=== PATIENT | male | born 1930 | race Caucasian/White ===

== ENCOUNTER 2016-11-10 09:21 | Emergency (ER) | payer MEDICARE ==
[2016-11-10 09:41] VITALS: PULSE 100
--- NOTE | 2016-11-10 10:24 | ED ---
Male Urogenital HPI - General Chief complaint: Urogenital Stated complaint: Poss.uti Time Seen by Provider: 11/10/16 09:46 Source: patient, RN notes reviewed Mode of arrival: wheelchair Limitations: no limitations - History of Present Illness Initial comments: 78-year-old male presents emergency Department chief complaint of dysuria unable to urinate. Patient states he feels he needs to urinate. Patient has had multiple problems with his prostate in the past. Patient has fever, chills. Patient states has not urinates morning though he feels that he has to. Patient does see urologist and takes BPH meds. - Related Data Home Medications Medication Instructions Recorded Confirmed Levothyroxine Sodium [Synthroid] 125 mcg PO DAILY 08/01/14 11/10/16 Montelukast [Singulair] 10 mg PO DAILY 08/01/14 11/10/16 Aspirin EC [Ecotrin Low Dose] 81 mg PO DAILY 11/10/16 11/10/16 Atorvastatin Calcium [Lipitor] 20 mg PO DAILY 11/10/16 11/10/16 Doxazosin [Cardura] 4 mg PO DAILY 11/10/16 11/10/16 Glucosamine Sulfate 500 mg PO DAILY 11/10/16 11/10/16 Isosorbide Mononitrate ER [Imdur] 60 mg PO BID 11/10/16 11/10/16 Metoprolol Tartrate [Lopressor] 25 mg PO BID 11/10/16 11/10/16 Multivitamin [Men's Multi-Vitamin] 1 tab PO DAILY 11/10/16 11/10/16 Nitroglycerin Sl Tabs [Nitrostat] 0.4 mg SUBLINGUAL Q5M PRN 11/10/16 11/10/16 Omeprazole [PriLOSEC] 20 mg PO AC-BRKFST 11/10/16 11/10/16 Previous Rx's Medication Instructions Recorded Ciprofloxacin HCl [Cipro] 500 mg PO Q12HR #20 tablet 11/10/16 Allergies Allergy/AdvReac Type Severity Reaction Status Date / Time No Known Allergies Allergy Verified 11/10/16 10:00 Review of Systems ROS Statement: Those systems with pertinent positive or pertinent negative responses have been documented in the HPI. ROS Other: All systems not noted in ROS Statement are negative. Past Medical History Past Medical History: Asthma, Hyperlipidemia, Hypertension, Prostate Disorder, Thyroid Disorder History of Any Multi-Drug Resistant Organisms: None Reported Past Surgical History: Adenoidectomy, Back Surgery, Hernia Repair, Tonsillectomy Additional Past Surgical History / Comment(s): left kidney removal, thyroid, cataracts Past Psychological History: Depression Smoking Status: Former smoker Past Alcohol Use History: Occasional Past Drug Use History: None Reported General Exam Limitations: no limitations General appearance: alert, in no apparent distress Head exam: Present: atraumatic, normocephalic, normal inspection Respiratory exam: Present: normal lung sounds bilaterally. Absent: respiratory distress, wheezes, rales, rhonchi, stridor Cardiovascular Exam: Present: regular rate, normal rhythm, normal heart sounds. Absent: systolic murmur, diastolic murmur, rubs, gallop, clicks GI/Abdominal exam: Present: soft, distended (Distention noted of the bladder, palpable), tenderness (Moderate suprapubic tenderness), normal bowel sounds. Absent: guarding, rebound, rigid Back exam: Absent: CVA tenderness (R), CVA tenderness (L) Course Vital Signs 11/10/16 09:39 Temperature 97.3 F L Pulse Rate 100 Respiratory 20 Rate Blood Pressure 123/70 O2 Sat by Pulse 96 Oximetry Medical Decision Making - Medical Decision Making 78-year-old male presented emergency department for possible UTI. Patient urinary retention. Frances was placed. Patient states he completed relief of symptoms. Patient does have urinary tract infection we started on Cipro Floxin. Patient will follow-up with urologist. Return parameters were discussed. - Lab Data Lab Results 11/10/16 Range/Units 10:30 Urine Color Yellow Urine Appearance Cloudy (Clear) Urine pH 6.0 (5.0-8.0) Ur Specific [place] 1.012 (1.001-1.035) Urine Protein Trace H (Negative) Urine Glucose (UA) Negative (Negative) Urine Ketones Negative (Negative) Urine Blood Moderate H (Negative) Urine Nitrate Positive (Negative) Urine Bilirubin Negative (Negative) Urine Urobilinogen <2.0 (<2.0) mg/dL Ur Leukocyte Esterase Large H (Negative) Urine RBC 175 H (0-5) /hpf Urine WBC >182 H (0-5) /hpf Disposition Clinical Impression: UTI (urinary tract infection), Urinary retention Disposition: HOME SELF-CARE Condition: Stable Instructions: Urinary Tract Infection in Men (ED) Additional Instructions: Please return to the Emergency Department if symptoms worsen or any other concerns. Prescriptions: Ciprofloxacin HCl [Cipro] 500 mg PO Q12HR #20 tablet Time of Disposition: 10:53
[2016-11-10 10:49] LABS: Appearance,Urine Cloudy (Clear); Bilirubin,Urine Negative (Negative); Glucose,Urine (UA) Negative (Negative); Ketones,Urine Negative (Negative); Leukocyte Esterase,Urine Large (Negative); Nitrite,Urine Positive (Negative); Particle Count 84954; Protein,Urine Trace (Negative); RBC,Urine 175 /hpf (0-5); Specific Gravity,Urine 1.012 (1.001-1.035); UA Billing (MACRO vs. MICRO) MICRO; Urobilinogen,Urine <2.0 mg/dL (<2.0); WBC,Urine >182 /hpf (0-5)
[2016-11-10 11:49] VITALS: BP 119/75; RESP 16; TEMP 97.8
== END 2016-11-10 11:46 | disposition home or self-care (01) ==
LOC: EC 09:21
DX: N39.0 Urinary tract infection, site not specified (principal); N40.1 Benign prostatic hyperplasia with lower urinary tract symptoms; R33.8 Other retention of urine; I10 Essential (primary) hypertension; J45.909 Unspecified asthma, uncomplicated; E78.5 Hyperlipidemia, unspecified; E07.9 Disorder of thyroid, unspecified; Z79.82 Long term (current) use of aspirin; Z79.899 Other long term (current) drug therapy; Z87.891 Personal history of nicotine dependence
CPT/HCPCS: 51702; 51798; 81001; 87077; 87086; 87186; 99283

== ENCOUNTER → 2017-02-24 | Outpatient (CLI) | payer MEDICARE ==
--- NOTE | 2017-02-24 15:24 | US ---
EXAMINATION TYPE: US venous doppler duplex LE DATE OF EXAM: 02/24/2017 3:08 PM COMPARISON: NONE CLINICAL HISTORY: R60.0 Localized edema. Bilateral leg swelling x 3 weeks SIDE PERFORMED: Bilateral TECHNIQUE: The lower extremity deep venous system is examined utilizing real time linear array sonog mauro with graded compression, doppler sonography and color-flow sonography. VESSELS IMAGED: External Iliac Vein (EIV) Common Femoral Vein Deep Femoral Vein Greater Saphenous Vein * Femoral Vein Popliteal Vein Small Saphenous Vein * Proximal Calf Veins (* superficial vessels) Right Leg: Appears negative for DVT Left Leg: Appears negative for DVT Grayscale, color doppler, spectral doppler imaging performed of the deep veins of the lower extremiti es. There is normal flow, compressibility, vascular waveforms bilaterally. IMPRESSION: No ultrasound evidence for acute DVT in either lower extremity.
[2017-02-24 16:02] LABS: Anisocytosis Slight; Basophils % (A) 1 %; CH 22.8; CHCM 29.8; Eosinophils # (A) 0.2 k/uL (0-0.7); Eosinophils % (A) 5 %; HCT 29.8 % (39.0-53.0); Hypochromasia Marked; Luc # (Auto) 0.21; Luc % (Auto) 4; Lymphocytes # (A) 0.8 k/uL (1.0-4.8); Lymphocytes % (A) 16 %; MCH 23.2 pg (25.0-35.0); MCHC 30.2 g/dL (31.0-37.0); Mean Platelet Volume 6.6; Microcytosis Slight; Monocytes # (A) 0.3 k/uL (0-1.0); Monocytes % (A) 7 %; Neutrophils # (A) 3.4 k/uL (1.3-7.7); Neutrophils % (A) 68 %; RBC 3.87 m/uL (4.30-5.90); RDW 16.4 % (11.5-15.5); WBC 4.9 k/uL (3.8-10.6); WBC (Perox) 5.31
[2017-02-24 16:06] LABS: Appearance,Urine Clear (Clear); Bilirubin,Urine Negative (Negative); Glucose,Urine (UA) Negative (Negative); Ketones,Urine Negative (Negative); Leukocyte Esterase,Urine Negative (Negative); Nitrite,Urine Negative (Negative); PH, Urine 5.5 (5.0-8.0); Protein,Urine Negative (Negative); Specific Gravity,Urine 1.016 (1.001-1.035); UA Billing (MACRO vs. MICRO) CHEM
[2017-02-24 16:11] LABS: ALT 27 U/L (21-72); AST 26 U/L (17-59); Alkaline Phosphatase 53 U/L (38-126); Anion Gap 9 mmol/L; Blood Urea Nitrogen 17 mg/dL (9-20); Calcium 8.9 mg/dL (8.4-10.2); Carbon Dioxide 24 mmol/L (22-30); Chloride 108 mmol/L (98-107); Glucose 89 mg/dL (74-99); Non-African American GFR(MDRD) >60 (>60 ml/min/1.73 sqM); Potassium 4.2 mmol/L (3.5-5.1); Sodium 141 mmol/L (137-145); Total Bilirubin 0.7 mg/dL (0.2-1.3); Total Protein 6.5 g/dL (6.3-8.2)
== END | disposition home or self-care (01) ==
LOC: RADUSWWP 14:44
PROVIDERS: ATTEND Internal Medicine
DX: R60.0 Localized edema (principal); R10.13 Epigastric pain; R10.32 Left lower quadrant pain; R31.9 Hematuria, unspecified
CPT/HCPCS: 36415; 80053; 81003; 83690; 85025; 93970

== ENCOUNTER 2017-11-22 10:15 | Inpatient (IN) | payer MEDICARE ==
[2017-11-22] MEDS ORDERED: SODIUM CHLORIDE 0.9% 1,000 ML IV STA (10:46)
[2017-11-22] MEDS ORDERED: SODIUM CHLORIDE 0.9% 500 ML IV STA (10:46)
[2017-11-22] MEDS ORDERED: METOCLOPRAMIDE 5 MG/ML 2 ML VIAL IVP STA (10:46)
[2017-11-22] MEDS ORDERED: FAMOTIDINE 20 MG/2 ML VIAL IV STA (10:47)
--- NOTE | 2017-11-22 10:50 | ED ---
General Adult HPI - General Chief complaint: Nausea/Vomiting/Diarrhea Stated complaint: weakness, nausea, vomiting Time Seen by Provider: 11/22/17 10:35 Source: patient, family, RN notes reviewed Mode of arrival: wheelchair Limitations: no limitations - History of Present Illness Initial comments: Patient is a pleasant 87-year-old male presenting to the emergency department with nausea and vomiting. Onset was after eating yesterday. Patient had epigastric discomfort followed by several episodes of emesis. Nausea is mild at this time. Patient has no abdominal discomfort since the first episode of emesis. Patient has had similar symptoms approximately 3 or 4 times over the past couple of weeks. No constipation or diarrhea. No fevers. No chest pain. Patient felt first time he had eaten bad food. - Related Data Home Medications Medication Instructions Recorded Confirmed Levothyroxine Sodium [Synthroid] 125 mcg PO DAILY 08/01/14 11/22/17 Montelukast [Singulair] 10 mg PO DAILY 08/01/14 11/22/17 Aspirin EC [Ecotrin Low Dose] 81 mg PO DAILY 11/10/16 11/22/17 Atorvastatin Calcium [Lipitor] 20 mg PO DAILY 11/10/16 11/22/17 Doxazosin [Cardura] 4 mg PO DAILY 11/10/16 11/22/17 Glucosamine Sulfate 500 mg PO DAILY 11/10/16 11/22/17 Isosorbide Mononitrate ER [Imdur] 60 mg PO DAILY 11/10/16 11/22/17 Nitroglycerin Sl Tabs [Nitrostat] 0.4 mg SUBLINGUAL Q5M PRN 11/10/16 11/22/17 Omeprazole [PriLOSEC] 20 mg PO AC-BRKFST 11/10/16 11/22/17 Chondroitin Sulfate 150 mg PO DAILY 11/22/17 11/22/17 Ferrous Sulfate [Feosol] 325 mg PO TID 11/22/17 11/22/17 Finasteride [Proscar] 5 mg PO DAILY 11/22/17 11/22/17 Metoprolol Succinate [Toprol XL] 25 mg PO DAILY 11/22/17 11/22/17 Ranitidine HCl 150 mg PO HS 11/22/17 11/22/17 Allergies Allergy/AdvReac Type Severity Reaction Status Date / Time No Known Allergies Allergy Verified 11/22/17 11:01 Review of Systems ROS Statement: Those systems with pertinent positive or pertinent negative responses have been documented in the HPI. ROS Other: All systems not noted in ROS Statement are negative. Constitutional: Denies: fever Eyes: Denies: eye pain ENT: Denies: ear pain Respiratory: Denies: cough Cardiovascular: Denies: chest pain Endocrine: Reports: fatigue Gastrointestinal: Reports: nausea, vomiting. Denies: diarrhea Genitourinary: Denies: dysuria Musculoskeletal: Denies: back pain Skin: Denies: rash Neurological: Denies: weakness Past Medical History Past Medical History: Asthma, Hyperlipidemia, Hypertension, Prostate Disorder, Thyroid Disorder History of Any Multi-Drug Resistant Organisms: None Reported Past Surgical History: Adenoidectomy, Back Surgery, Hernia Repair, Tonsillectomy Additional Past Surgical History / Comment(s): left kidney removal, thyroid, cataracts Past Psychological History: Depression Smoking Status: Former smoker Past Alcohol Use History: Rare Past Drug Use History: None Reported General Exam Limitations: no limitations General appearance: alert, in no apparent distress Head exam: Present: atraumatic Eye exam: Present: normal appearance, PERRL ENT exam: Present: normal oropharynx Neck exam: Present: normal inspection Respiratory exam: Present: normal lung sounds bilaterally Cardiovascular Exam: Present: regular rate, normal rhythm Expanded Peripheral pulses: 2+: Radial (R), Radial (L), Dorsalis Pedis (R), Dorsalis Pedis (L) GI/Abdominal exam: Present: soft, normal bowel sounds. Absent: distended, tenderness, guarding, rebound, rigid, pulsatile mass Extremities exam: Present: normal inspection Neurological exam: Present: alert Psychiatric exam: Present: normal affect, normal mood Skin exam: Present: normal color Course Vital Signs 11/22/17 11/22/17 10:23 13:43 Temperature 97.4 F L Pulse Rate 87 82 Respiratory 18 16 Rate Blood Pressure 146/79 142/68 O2 Sat by Pulse 98 98 Oximetry EKG Findings - EKG Comments: EKG Findings:: Normal sinus rhythm 72. MS 174. QRS 78. QT 444. QTC 486. Normal axis. Normal QRS. No acute ST change. Medical Decision Making - Medical Decision Making Patient reevaluated and updated. Patient is agreeable to stay following discussion. Case was discussed in detail with Dr. Wooten, who will admit for Dr. Perla. Consult for Dr. Hedrick with surgery as well as gastroenterology and nothing by mouth status. Specialists have been paged. - Lab Data Result diagrams: 11/22/17 11:16 11/22/17 11:16 Lab Results 11/22/17 11/22/17 11/22/17 Range/Units 11:16 11:16 12:49 WBC 9.0 (3.8-10.6) k/uL RBC 4.40 (4.30-5.90) m/uL Hgb 12.9 L (13.0-17.5) gm/dL Hct 38.3 L (39.0-53.0) % MCV 87.1 (80.0-100.0) fL MCH 29.3 (25.0-35.0) pg MCHC 33.6 (31.0-37.0) g/dL RDW 12.9 (11.5-15.5) % Plt Count 258 (150-450) k/uL Neutrophils % 88 % Lymphocytes % 5 % Monocytes % 6 % Eosinophils % 1 % Basophils % 0 % Neutrophils # 7.8 H (1.3-7.7) k/uL Lymphocytes # 0.4 L (1.0-4.8) k/uL Monocytes # 0.5 (0-1.0) k/uL Eosinophils # 0.0 (0-0.7) k/uL Basophils # 0.0 (0-0.2) k/uL Sodium 144 (137-145) mmol/L Potassium 4.0 (3.5-5.1) mmol/L Chloride 106 (98-107) mmol/L Carbon Dioxide 27 (22-30) mmol/L Anion Gap 11 mmol/L BUN 10 (9-20) mg/dL Creatinine 0.80 (0.66-1.25) mg/dL Est GFR (CKD-EPI)AfAm >90 (>60 ml/min/1.73 sqM) Est GFR (CKD-EPI)NonAf 80 (>60 ml/min/1.73 sqM) Glucose 110 H (74-99) mg/dL Calcium 9.4 (8.4-10.2) mg/dL Total Bilirubin 4.3 H (0.2-1.3) mg/dL AST 330 H (17-59) U/L ALT 294 H (21-72) U/L Alkaline Phosphatase 252 H (38-126) U/L Total Protein 6.2 L (6.3-8.2) g/dL Albumin 3.6 (3.5-5.0) g/dL Amylase 48 (30-110) U/L Lipase 175 (23-300) U/L Urine Color Urine Appearance (Clear) Urine pH (5.0-8.0) Ur Specific [place] (1.001-1.035) Urine Protein (Negative) Urine Glucose (UA) (Negative) Urine Ketones (Negative) Urine Blood (Negative) Urine Nitrite (Negative) Urine Bilirubin (Negative) Urine Urobilinogen (<2.0) mg/dL Ur Leukocyte Esterase (Negative) Urine RBC (0-5) /hpf Urine WBC (0-5) /hpf Urine Bacteria (None) /hpf Urine Mucus (None) /hpf Hepatitis A IgM Ab NEGATIVE 11/22/17 Range/Units 13:00 WBC (3.8-10.6) k/uL RBC (4.30-5.90) m/uL Hgb (13.0-17.5) gm/dL Hct (39.0-53.0) % MCV (80.0-100.0) fL MCH (25.0-35.0) pg MCHC (31.0-37.0) g/dL RDW (11.5-15.5) % Plt Count (150-450) k/uL Neutrophils % % Lymphocytes % % Monocytes % % Eosinophils % % Basophils % % Neutrophils # (1.3-7.7) k/uL Lymphocytes # (1.0-4.8) k/uL Monocytes # (0-1.0) k/uL Eosinophils # (0-0.7) k/uL Basophils # (0-0.2) k/uL Sodium (137-145) mmol/L Potassium (3.5-5.1) mmol/L Chloride (98-107) mmol/L Carbon Dioxide (22-30) mmol/L Anion Gap mmol/L BUN (9-20) mg/dL Creatinine (0.66-1.25) mg/dL Est GFR (CKD-EPI)AfAm (>60 ml/min/1.73 sqM) Est GFR (CKD-EPI)NonAf (>60 ml/min/1.73 sqM) Glucose (74-99) mg/dL Calcium (8.4-10.2) mg/dL Total Bilirubin (0.2-1.3) mg/dL AST (17-59) U/L ALT (21-72) U/L Alkaline Phosphatase (38-126) U/L Total Protein (6.3-8.2) g/dL Albumin (3.5-5.0) g/dL Amylase (30-110) U/L Lipase (23-300) U/L Urine Color [place] Urine Appearance Clear (Clear) Urine pH 6.0 (5.0-8.0) Ur Specific [place] 1.018 (1.001-1.035) Urine Protein 1+ H (Negative) Urine Glucose (UA) Negative (Negative) Urine Ketones Negative (Negative) Urine Blood Negative (Negative) Urine Nitrite Negative (Negative) Urine Bilirubin 2+ H (Negative) Urine Urobilinogen 12.0 (<2.0) mg/dL Ur Leukocyte Esterase Negative (Negative) Urine RBC 2 (0-5) /hpf Urine WBC 2 (0-5) /hpf Urine Bacteria Rare H (None) /hpf Urine Mucus Occasional H (None) /hpf Hepatitis A IgM Ab - Radiology Data Radiology results: report reviewed (Gallbladder ultrasound shows fundal gallstones with mildly thickened gallbladder which is nonspecific and may be due to adjacent hepatocellular disease. Count bile duct within normal limits.) , image reviewed (KUB shows nonobstructive bowel gas pattern.) Disposition Clinical Impression: Acute vomiting, Cholelithiasis, Elevated liver enzymes Disposition: ADMITTED IP TO THIS [facility] Referrals: Herberth Perla MD [Primary Care Provider] - 1-2 days Decision Time: 14:17
[2017-11-22 11:25] LABS: Basophils % (A) 0 %; Eosinophils % (A) 1 %; HCT 38.3 % (39.0-53.0); HGB 12.9 gm/dL (13.0-17.5); Lymphocytes # (A) 0.4 k/uL (1.0-4.8); Lymphocytes % (A) 5 %; MCH 29.3 pg (25.0-35.0); MCHC 33.6 g/dL (31.0-37.0); MCV 87.1 fL (80.0-100.0); Mean Platelet Volume 7.1; Monocytes # (A) 0.5 k/uL (0-1.0); Monocytes % (A) 6 %; Neutrophils # (A) 7.8 k/uL (1.3-7.7); Neutrophils % (A) 88 %; Platelet Count 258 k/uL (150-450); RDW 12.9 % (11.5-15.5)
[2017-11-22 11:45] LABS: ALT 294 U/L (21-72); AST 330 U/L (17-59); Albumin 3.6 g/dL (3.5-5.0); Alkaline Phosphatase 252 U/L (38-126); Amylase 48 U/L (30-110); Anion Gap 11 mmol/L; Blood Urea Nitrogen 10 mg/dL (9-20); Calcium 9.4 mg/dL (8.4-10.2); Carbon Dioxide 27 mmol/L (22-30); Chloride 106 mmol/L (98-107); Glucose 110 mg/dL (74-99); Lipase 175 U/L (23-300); Sodium 144 mmol/L (137-145); Total Bilirubin 4.3 mg/dL (0.2-1.3); Total Protein 6.2 g/dL (6.3-8.2)
--- NOTE | 2017-11-22 11:48 | XR ---
EXAMINATION TYPE: XR KUB DATE OF EXAM: 11/22/2017 11:32 AM CLINICAL HISTORY: Abdominal pain and vomiting TECHNIQUE: Single supine KUB image of the abdomen is obtained. COMPARISON: None. FINDINGS: Scattered gas is seen in non-distended small bowel loops. Gas and fecal material is seen in non-distended colon. There were no abnormal calcification appreciated. Evaluation for pneumoperitone um is limited given the supine view. No gross evidence of pneumoperitoneum. The lung bases are clear and the osseous structures are intact. Extensive degenerative changes of the visualized lumbosacral s pine are seen and moderate to severe right as well as moderate left femoral acetabular arthropathy is also noted. Surgical coils from probable prior ventral hernia repair are seen within the pelvis. IMPRESSION: Nonobstructive bowel gas pattern.
[2017-11-22 13:22] LABS: Appearance,Urine Clear (Clear); Bacteria,Urine Rare /hpf; Bilirubin,Urine 2+ (Negative); Blood,Urine Negative (Negative); Color,Urine Orange; Glucose,Urine (UA) Negative (Negative); Ketones,Urine Negative (Negative); Leukocyte Esterase,Urine Negative (Negative); Mucus,Urine Occasional /hpf; Nitrite,Urine Negative (Negative); Protein,Urine 1+ (Negative); RBC,Urine 2 /hpf (0-5); Specific Gravity,Urine 1.018 (1.001-1.035); WBC,Urine 2 /hpf (0-5)
--- NOTE | 2017-11-22 13:28 | US ---
EXAMINATION TYPE: US gallbladder DATE OF EXAM: 11/22/2017 COMPARISON: NONE CLINICAL HISTORY: Pain. abd pain x 1 week EXAM MEASUREMENTS: Liver Length: 17.4 cm Gallbladder Wall: 0.4 cm CBD: 0.6 cm Right Kidney: 11.8 x 4.8 x 6.4 cm Pancreas: limited views due to bowel gas Liver: mostly intercostal images due to bowel gas subcostally. There is diminished visualization of the portal triads and a hyperechoic hepatic echotexture, most commonly related to underlying hepatic steatosis. This limits evaluation for hepatic masses. Gallbladder: multiple stones seen within fundal end and slightly thickened wall Evidence for sonographic Plaza's sign: no CBD: wnl Right Kidney: 3.0 cm renal cystic lesion with few thin septations within IMPRESSION: 1. Fundal gallstones are present with mildly thickened gallbladder wall, which is nonspecific and may be due to the adjacent hepatocellular disease. Common bile duct is within normal limits given the pa tient's age and there are no other secondary signs of acute cholecystitis. 2. Hyperechoic and heterogenous hepatic echotexture, most commonly related to underlying hepatic stea tosis. This appears mild in degree. 3. Minimally complex right renal cystic lesion.
[2017-11-22 13:39] LABS: Hepatitis A AB IgM Index 0.01; Hepatitis A Antibody IgM NEGATIVE
[2017-11-22] MEDS ORDERED: MORPHINE SULFATE 4 MG/ML SYRINGE IV PRN (14:23)
[2017-11-22] MEDS ORDERED: ONDANSETRON 4 MG/2 ML VIAL IVP PRN (14:23)
[2017-11-22] MEDS ORDERED: NALOXONE 0.4 MG/ML 1 ML VIAL IV PRN (14:23)
[2017-11-22] MEDS: DEXTROSE 5%-0.45% NACL 1,000 ML IV SCH ×2 (14:46→23:30)
[2017-11-22] MEDS ORDERED: NITROGLYCERIN SL TABS 0.4 MG TAB SUBLINGUAL PRN (18:20)
[2017-11-22 19:55] LABS: Hepatitis B Core IgM Non-Reactive (Non-Reactive)
[2017-11-22] MEDS: FAMOTIDINE 20 MG TAB PO SCH (20:23)
[2017-11-23] MEDS: LEVOTHYROXINE 125 MCG TAB PO SCH ×2 (06:30→08:48)
--- NOTE | 2017-11-23 08:34 | P.GSCN ---
History of Present Illness Consult date: 11/23/17 Reason for Consult: Nausea, vomiting, elevated liver function test History of present illness: The patient's a 87-year-old man who hasn't been feeling well for the last week and a half. He's had several episodes of nausea and vomiting. He is also had some loss of appetite. Some discomfort in the epigastrium and left lower quadrant. He normally has a bowel movement daily but hasn't had one for about a week. He has not noticed jaundice, tea-colored urine, acholic stool. No blood in the stool or dark tarry stool. No previous colonoscopy. No history of ulcer disease. No previous episodes of pain related to fatty foods. Denies fevers or chills. He feels okay this morning and wants to go home to help take care of his with Alzheimer's disease. Review of Systems All systems: negative Past Medical History Past Medical History: Asthma, Hyperlipidemia, Hypertension, Prostate Disorder, Thyroid Disorder History of Any Multi-Drug Resistant Organisms: None Reported Past Surgical History: Adenoidectomy, Back Surgery, Hernia Repair, Tonsillectomy Additional Past Surgical History / Comment(s): left kidney removal, thyroid, cataracts Past Psychological History: Depression Smoking Status: Former smoker Past Alcohol Use History: Rare Past Drug Use History: None Reported Medications and Allergies Home Medications Medication Instructions Recorded Confirmed Type Levothyroxine Sodium [Synthroid] 125 mcg PO DAILY 08/01/14 11/22/17 History Montelukast [Singulair] 10 mg PO DAILY 08/01/14 11/22/17 History Aspirin EC [Ecotrin Low Dose] 81 mg PO DAILY 11/10/16 11/22/17 History Atorvastatin Calcium [Lipitor] 20 mg PO DAILY 11/10/16 11/22/17 History Doxazosin [Cardura] 4 mg PO DAILY 11/10/16 11/22/17 History Glucosamine Sulfate 500 mg PO DAILY 11/10/16 11/22/17 History Isosorbide Mononitrate ER [Imdur] 60 mg PO DAILY 11/10/16 11/22/17 History Nitroglycerin Sl Tabs [Nitrostat] 0.4 mg SUBLINGUAL Q5M PRN 11/10/16 11/22/17 History Omeprazole [PriLOSEC] 20 mg PO AC-BRKFST 11/10/16 11/22/17 History Chondroitin Sulfate 150 mg PO DAILY 11/22/17 11/22/17 History Ferrous Sulfate [Feosol] 325 mg PO TID 11/22/17 11/22/17 History Finasteride [Proscar] 5 mg PO DAILY 11/22/17 11/22/17 History Metoprolol Succinate [Toprol XL] 25 mg PO DAILY 11/22/17 11/22/17 History Ranitidine HCl 150 mg PO HS 11/22/17 11/22/17 History Allergies Allergy/AdvReac Type Severity Reaction Status Date / Time No Known Allergies Allergy Verified 11/22/17 11:01 Surgical - Exam Osteopathic Statement: *. No significant issues noted on an osteopathic structural exam other than those noted in the History and Physical/Consult. Vital Signs Temp Pulse Resp BP Pulse Ox 97.4 F L 87 18 146/79 98 11/22/17 10:23 11/22/17 10:23 11/22/17 10:23 11/22/17 10:23 11/22/17 10:23 - General well developed, well nourished, no distress - Eyes normal ocular movement, icteric - ENT normal mucosa - Neck trachea midline - Respiratory normal expansion, normal respiratory effort, clear to auscultation - Cardiovascular Rhythm: irregularly irregular - Abdomen Abdomen: soft, non tender, bowel sounds, no surgical scars, no guarding, no rigid, no rebound - Psychiatric oriented to time, oriented to person, oriented to place, speech is normal, memory intact Results - Labs 11/22/17 11:16 11/22/17 11:16 Abnormal Lab Results - Last 24 Hours (Table) 11/22/17 11/22/17 11/22/17 Range/Units 11:16 11:16 13:00 Hgb 12.9 L (13.0-17.5) gm/dL Hct 38.3 L (39.0-53.0) % Neutrophils # 7.8 H (1.3-7.7) k/uL Lymphocytes # 0.4 L (1.0-4.8) k/uL Glucose 110 H (74-99) mg/dL Total Bilirubin 4.3 H (0.2-1.3) mg/dL AST 330 H (17-59) U/L ALT 294 H (21-72) U/L Alkaline Phosphatase 252 H (38-126) U/L Total Protein 6.2 L (6.3-8.2) g/dL Urine Protein 1+ H (Negative) Urine Bilirubin 2+ H (Negative) Urine Bacteria Rare H (None) /hpf Urine Mucus Occasional H (None) /hpf Diabetes panel 11/22/17 Range/Units 11:16 Sodium 144 (137-145) mmol/L Potassium 4.0 (3.5-5.1) mmol/L Chloride 106 (98-107) mmol/L Carbon Dioxide 27 (22-30) mmol/L BUN 10 (9-20) mg/dL Creatinine 0.80 (0.66-1.25) mg/dL Glucose 110 H (74-99) mg/dL Calcium 9.4 (8.4-10.2) mg/dL AST 330 H (17-59) U/L ALT 294 H (21-72) U/L Alkaline Phosphatase 252 H (38-126) U/L Total Protein 6.2 L (6.3-8.2) g/dL Albumin 3.6 (3.5-5.0) g/dL Calcium panel 11/22/17 Range/Units 11:16 Calcium 9.4 (8.4-10.2) mg/dL Albumin 3.6 (3.5-5.0) g/dL Pituitary panel 11/22/17 Range/Units 11:16 Sodium 144 (137-145) mmol/L Potassium 4.0 (3.5-5.1) mmol/L Chloride 106 (98-107) mmol/L Carbon Dioxide 27 (22-30) mmol/L BUN 10 (9-20) mg/dL Creatinine 0.80 (0.66-1.25) mg/dL Glucose 110 H (74-99) mg/dL Calcium 9.4 (8.4-10.2) mg/dL Adrenal panel 11/22/17 Range/Units 11:16 Sodium 144 (137-145) mmol/L Potassium 4.0 (3.5-5.1) mmol/L Chloride 106 (98-107) mmol/L Carbon Dioxide 27 (22-30) mmol/L BUN 10 (9-20) mg/dL Creatinine 0.80 (0.66-1.25) mg/dL Glucose 110 H (74-99) mg/dL Calcium 9.4 (8.4-10.2) mg/dL Total Bilirubin 4.3 H (0.2-1.3) mg/dL AST 330 H (17-59) U/L ALT 294 H (21-72) U/L Alkaline Phosphatase 252 H (38-126) U/L Total Protein 6.2 L (6.3-8.2) g/dL Albumin 3.6 (3.5-5.0) g/dL - Imaging US - abdomen: report reviewed Assessment and Plan (1) Elevated liver enzymes Current Visit: Yes Status: Acute Code(s): R74.8 - ABNORMAL LEVELS OF OTHER SERUM ENZYMES SNOMED Code(s): 478418684 (2) Nausea and vomiting Current Visit: Yes Status: Acute Code(s): R11.2 - NAUSEA WITH VOMITING, UNSPECIFIED SNOMED Code(s): 00076196 (3) Cholelithiasis Current Visit: Yes Status: Acute Code(s): K80.20 - CALCULUS OF GALLBLADDER W /O CHOLECYSTITIS W/O OBSTRUCTION SNOMED Code(s): 771602824 Plan: The patient does have gallstones but not a typical choledocholithiasis. His common bile duct is normal on ultrasound. There is some mild gallbladder wall thickening which could be due to underlying hepatocellular disease. We'll await further medical workup. GI has been consulted. Further recommendations to follow.
[2017-11-23 08:39] LABS: Basophils % (A) 0 %; Eosinophils # (A) 0.1 k/uL (0-0.7); Eosinophils % (A) 2 %; HCT 37.8 % (39.0-53.0); HGB 12.2 gm/dL (13.0-17.5); INR 1.1 (<1.2); Lymphocytes # (A) 0.5 k/uL (1.0-4.8); Lymphocytes % (A) 8 %; MCH 28.9 pg (25.0-35.0); MCHC 32.3 g/dL (31.0-37.0); MCV 89.4 fL (80.0-100.0); Mean Platelet Volume 7.7; Monocytes # (A) 0.5 k/uL (0-1.0); Monocytes % (A) 7 %; Neutrophils # (A) 5.1 k/uL (1.3-7.7); Neutrophils % (A) 80 %; Platelet Count 235 k/uL (150-450); Prothrombin Time 11.1 sec (9.0-12.0); RBC 4.22 m/uL (4.30-5.90); RDW 13.2 % (11.5-15.5); WBC 6.4 k/uL (3.8-10.6)
[2017-11-23] MEDS: DOXAZOSIN 4 MG TAB PO SCH (08:46)
[2017-11-23] MEDS: PANTOPRAZOLE 40 MG TABLET PO SCH (08:46)
[2017-11-23] MEDS: MONTELUKAST 10 MG TAB PO SCH (08:46)
[2017-11-23] MEDS: METOPROLOL SUCCINATE (ER) 25 MG TAB.ER.24H PO SCH (08:46)
[2017-11-23] MEDS: FINASTERIDE 5 MG TAB PO SCH (08:47)
[2017-11-23] MEDS: DEXTROSE 5%-0.45% NACL 1,000 ML IV SCH ×2 (08:47→23:30)
[2017-11-23 08:55] LABS: ALT 252 U/L (21-72); AST 222 U/L (17-59); Albumin 3.1 g/dL (3.5-5.0); Alkaline Phosphatase 248 U/L (38-126); Amylase 40 U/L (30-110); Anion Gap 8 mmol/L; Blood Urea Nitrogen 6 mg/dL (9-20); Calcium 8.7 mg/dL (8.4-10.2); Carbon Dioxide 26 mmol/L (22-30); Chloride 106 mmol/L (98-107); Glucose 137 mg/dL (74-99); Lipase 105 U/L (23-300); Potassium 3.6 mmol/L (3.5-5.1); Sodium 140 mmol/L (137-145); Total Bilirubin 4.4 mg/dL (0.2-1.3); Total Protein 5.6 g/dL (6.3-8.2)
--- NOTE | 2017-11-23 10:51 | P.CONS ---
History of Present Illness - Reason for Consult Consult date: 11/23/17 Abdominal pain elevated liver enzymes Requesting physician: Cheli Wooten - History of Present Illness 87-year-old gentleman with a history of asthma, hyperlipidemia, hypertension, and depression. Patient presented with upper abdominal pain started 2 days ago with intractable nausea vomiting. No history of this type of pain. Patient's liver enzymes were elevated upon admission; total bilirubin 4.3. AST 330. ALT 294. Alkaline phosphatase 252. Lipase 175. Presently total bilirubin is 4.4. AST 222. ALT 252. Alkaline phosphates to 248. Hepatitis screen nonreactive. Abdominal pain has subsided. Denies fever chills hematemesis hematochezia melena no changes in the color of his urine or stool. White count 9. Hemoglobin 12.9. Platelet 258. INR 1.1. Ultrasound abdomen multiple fundal gallstones with mildly thickened gallbladder wall. CBD within normal limits 0.4 cm. Mild underlying hepatic steatosis. Review of Systems Constitutional: Denies fever, chills, sweats, weight gain, or loss. HEENT: Negative for migraines, blurred vision or loss, earaches, drainage, tinnitus, oral mucosal lesions, dysphagia, or odynophagia. Cardiac: Hyperlipidemia. Hypertension. Negative for chest pain, arrhythmias, or palpitation. Respiratory: Asthma. Negative for shortness of breath, hemoptysis, cough, or sputum production. Gastrointestinal: See HPI for pertinent findings. Genitourinary: Negative for hematuria, urgency, frequency, polyuria, dysuria, or penile discharge. Musculoskeletal: Negative for muscle aches, swelling, arthritis, and arthralgias. Neurologic: Negative for stroke or TIA. Endocrine: Negative for thyroid problems. Skin: Negative for rash or itching. Psychiatric: History of depression. Past Medical History Past Medical History: Asthma, Hyperlipidemia, Hypertension, Prostate Disorder, Thyroid Disorder History of Any Multi-Drug Resistant Organisms: None Reported Past Surgical History: Adenoidectomy, Back Surgery, Hernia Repair, Tonsillectomy Additional Past Surgical History / Comment(s): left kidney removal, thyroid, cataracts Past Psychological History: Depression Smoking Status: Former smoker Past Alcohol Use History: Rare Past Drug Use History: None Reported Medications and Allergies Home Medications Medication Instructions Recorded Confirmed Type Levothyroxine Sodium [Synthroid] 125 mcg PO DAILY 08/01/14 11/22/17 History Montelukast [Singulair] 10 mg PO DAILY 08/01/14 11/22/17 History Aspirin EC [Ecotrin Low Dose] 81 mg PO DAILY 11/10/16 11/22/17 History Atorvastatin Calcium [Lipitor] 20 mg PO DAILY 11/10/16 11/22/17 History Doxazosin [Cardura] 4 mg PO DAILY 11/10/16 11/22/17 History Glucosamine Sulfate 500 mg PO DAILY 11/10/16 11/22/17 History Isosorbide Mononitrate ER [Imdur] 60 mg PO DAILY 11/10/16 11/22/17 History Nitroglycerin Sl Tabs [Nitrostat] 0.4 mg SUBLINGUAL Q5M PRN 11/10/16 11/22/17 History Omeprazole [PriLOSEC] 20 mg PO AC-BRKFST 11/10/16 11/22/17 History Chondroitin Sulfate 150 mg PO DAILY 11/22/17 11/22/17 History Ferrous Sulfate [Feosol] 325 mg PO TID 11/22/17 11/22/17 History Finasteride [Proscar] 5 mg PO DAILY 11/22/17 11/22/17 History Metoprolol Succinate [Toprol XL] 25 mg PO DAILY 11/22/17 11/22/17 History Ranitidine HCl 150 mg PO HS 11/22/17 11/22/17 History Allergies Allergy/AdvReac Type Severity Reaction Status Date / Time No Known Allergies Allergy Verified 11/22/17 11:01 Physical Exam Vitals: Vital Signs Temp Pulse Pulse Pulse Resp BP BP 11/23/17 07:00 97.7 F 89 16 139/95 11/23/17 00:00 16 11/22/17 22:52 98.3 F 69 16 132/74 11/22/17 17:47 97.4 F L 70 16 170/83 11/22/17 16:05 98.1 F 63 16 148/83 11/22/17 14:31 74 16 131/71 11/22/17 13:43 82 16 142/68 Pulse Ox 11/23/17 07:00 98 11/23/17 00:00 11/22/17 22:52 92 L 11/22/17 17:47 95 11/22/17 16:05 96 11/22/17 14:31 97 11/22/17 13:43 98 Intake and Output 11/22/17 11/23/17 11/23/17 22:59 06:59 14:59 Intake Total 360 680 Balance 360 680 Intake: Intake, IV Titration 360 680 Amount Dextrose 5%-0.45% NaCl 1, 360 680 000 ml @ 120 mls/hr IV . Q8H20M [facility] Rx#:[id number] Other: # Voids 2 3 Weight 79.379 kg General appearance: The patient is alert, oriented, in no acute distress. Slight jaundice in appearance. HET: Head is normocephalic and atraumatic. Pupils are equal and reactive. Sclerae dull. Oropharynx is clear without lesions. Neck: Supple without lymphadenopathy. Trachea midline. Heart: S1 S2. Regular rate and rhythm. Lungs: No crackles or wheezes are heard. Abdomen: Soft, nontender, nondistended with bowel sounds. No peritoneal signs. No palpable organomegaly or masses. Extremities: Normal skin color and turgor. No cyanosis, rash, ulceration, clubbing, or edema. Radial and pedal pulses are 2/4 bilaterally. Neurological: No focal deficits. Strength and sensation are grossly intact. Results CBC & Chem 7: 11/23/17 08:00 11/23/17 08:00 Labs: Abnormal Lab Results - Last 24 Hours (Table) 11/22/17 11/22/17 11/22/17 Range/Units 11:16 11:16 13:00 RBC (4.30-5.90) m/uL Hgb 12.9 L (13.0-17.5) gm/dL Hct 38.3 L (39.0-53.0) % Neutrophils # 7.8 H (1.3-7.7) k/uL Lymphocytes # 0.4 L (1.0-4.8) k/uL BUN (9-20) mg/dL Glucose 110 H (74-99) mg/dL Total Bilirubin 4.3 H (0.2-1.3) mg/dL AST 330 H (17-59) U/L ALT 294 H (21-72) U/L Alkaline Phosphatase 252 H (38-126) U/L Total Protein 6.2 L (6.3-8.2) g/dL Albumin (3.5-5.0) g/dL Urine Protein 1+ H (Negative) Urine Bilirubin 2+ H (Negative) Urine Bacteria Rare H (None) /hpf Urine Mucus Occasional H (None) /hpf 11/23/17 11/23/17 Range/Units 08:00 08:00 RBC 4.22 L (4.30-5.90) m/uL Hgb 12.2 L (13.0-17.5) gm/dL Hct 37.8 L (39.0-53.0) % Neutrophils # (1.3-7.7) k/uL Lymphocytes # 0.5 L (1.0-4.8) k/uL BUN 6 L (9-20) mg/dL Glucose 137 H (74-99) mg/dL Total Bilirubin 4.4 H (0.2-1.3) mg/dL AST 222 H (17-59) U/L ALT 252 H (21-72) U/L Alkaline Phosphatase 248 H (38-126) U/L Total Protein 5.6 L (6.3-8.2) g/dL Albumin 3.1 L (3.5-5.0) g/dL Urine Protein (Negative) Urine Bilirubin (Negative) Urine Bacteria (None) /hpf Urine Mucus (None) /hpf US - abdomen: report reviewed (Dr. Mcmahan) Assessment and Plan (1) Abdominal pain Narrative/Plan: Acute upper abdominal pain nausea vomiting with elevated liver enzymes and radiographic imaging reporting cholelithiasis possible choledocholithiasis. Current Visit: Yes Status: Acute Code(s): R10.9 - UNSPECIFIED ABDOMINAL PAIN SNOMED Code(s): 29982452 (2) Jaundice Current Visit: Yes Status: Acute Code(s): R17 - UNSPECIFIED JAUNDICE SNOMED Code(s): 42345786 (3) Cholelithiasis Current Visit: Yes Status: Acute Code(s): K80.20 - CALCULUS OF GALLBLADDER W /O CHOLECYSTITIS W/O OBSTRUCTION SNOMED Code(s): 849975166 (4) Elevated liver enzymes Current Visit: Yes Status: Acute Code(s): R74.8 - ABNORMAL LEVELS OF OTHER SERUM ENZYMES SNOMED Code(s): 914270877 Plan: 1. MRCP. If liver function tests worsen or evidence of choledocholithiasis per MRI will proceed with ERCP evaluation. Clear liquids after MRI. Nothing by mouth after midnight. The learning engineer has discussed the risks, benefits and alternative therapies for the above-mentioned procedure and for both sedation/analgesia as well as necessary blood product administration, if indicated, as they pertain to this patient. The patient has indicated understanding and acceptance of the risks and procedures discussed. Thank you for this kind referral and the opportunity to participate in the care of your patient. This consultation was discussed with Dr. Mcmahan. The impression and plan of care have been directed as dictated.
[2017-11-23] MEDS ORDERED: METOPROLOL TARTRATE 25 MG TAB PO STA ×2 (11:05→20:57)
[2017-11-23] MEDS ORDERED: DIAZEPAM 5 MG/ML 2 ML INJ IVP STA (11:07)
[2017-11-23] MEDS: ISOSORBIDE MONONITRATE ER 60 MG TAB.ER.24H PO SCH (11:55)
--- NOTE | 2017-11-23 16:01 | MR ---
EXAMINATION TYPE: MR MRCP DATE OF EXAM: 11/23/2017 COMPARISON: NONE HISTORY: Abdominal pain and vomiting, Pt Claustrophobic, Sedated, Not following Breathing instruction s well. Standard multiplanar, multisequence MRI departmental protocol Multiplanar, multisequence images of the biliary tree and liver were acquired. Diffusion weighted corinna ging was performed. FINDINGS: There is evidence of cholelithiasis. Borderline gallbladder wall thickening at 2.9 mm. No definite cy stic duct stone. There is a filling defect within the common bile duct measuring 4.1 mm felt to refle ct a calculus common bile duct however is not significantly dilated at 6.2 mm. No evidence of pericho lecystic fluid. There is evidence of hepatic steatosis. No hepatic masses seen. Pancreas is free of mass lesion or inflammatory process. Pancreatic duct is of normal caliber. The spleen is not enlarged. Renal cystic changes noted right kidney. 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 No adrenal mass is appreciated. Fixed hiatal hernia. IMPRESSION: 1. There is a filling defect within the midportion of the common bile duct felt to reflect underlying calculus or polyp. No significant CBD dilatation. As noted there is evidence of cholelithiasis with borderline gallbladder wall thickening.
[2017-11-23] MEDS: FAMOTIDINE 20 MG TAB PO SCH (20:26)
--- NOTE | 2017-11-23 21:48 | P.HPIM ---
History of Present Illness H&P Date: 11/23/17 Chief Complaint: Jaundice This is an 87-year-old gentleman patient of Dr. Perla. 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 Pain has been there for the past 1-1/2 weeks , with diminished appetite no fried fatty food intolerance, patient has pain across the subcostal area bilaterally left upper quadrant and right upper quadrant area, patient did not seek any consultation for this at all, and subsequently was seen in emergency room for evaluation. Patient was noted to be jaundice, with elevated liver function tests and alkaline phosphatase Total bili was 4.4, AST 222, ALT of 252, alkaline phosphatase 248 on the ER labs. Patient denies any fever no chills no hepato-masses, no melena, hematochezia, patient denies any alcohol intake, Emergency room, ultrasound shows multiple fundal gallstones with mildly thickened gallbladder wall, common bile duct is within normal limits 0.4 centimeter, hepatic steatosis noted patient was admitted with consultations to Dr. Peck, gastrology on my evaluation. Patient was noted to be in atrial fibrillation with rapid ventricular rate, additional atenolol 25 mg was given this morning, however patient goes into the 150s with ambulation, [facility] and [facility] to cardiology patient is on aspirin only for anticoagulation, patient is not on any other blood thinners Review of Systems Constitutional: Reports as per HPI, Reports anorexia, Reports fever, Denies chills, Denies chronic headaches, Denies chronic pain, Denies daytime sleepiness , Denies fatigue, Denies lethargy, Denies malaise, Denies night sweats, Denies poor appetite, Denies sweats, Denies weakness, Denies weight gain, Denies weight loss Ears, nose, mouth and throat: Reports as per HPI, Denies ant. neck pain, Denies bleeding gums, Denies dental pain, Denies dysphagia, Denies epistaxis, Denies headache, Denies hoarseness, Denies mouth pain, Denies nasal congestion, Denies nasal discharge, Denies neck fullness/pressure, Denies neck lump, Denies nose pain, Denies odynophagia, Denies post-nasal drip, Denies sinus pain, Denies sinus pressure, Denies swelling in mouth, Denies swelling in throat, Denies sore throat, Denies vertigo, Denies voice changes Cardiovascular: Reports as per HPI, Reports rapid heart beat, Denies chest pain , Denies claudication, Denies decreased exercise tolerance, Denies dyspnea on exertion, Denies edema, Denies high blood pressure, Denies irregular heart beat , Denies leg edema, Denies lightheadedness, Denies orthopnea, Denies palpitations, Denies paroxysmal nocturnal dyspnea, Denies phlebitis, Denies shortness of breath, Denies syncope Respiratory: Reports as per HPI, Denies congestion, Denies cough, Denies cough with sputum, Denies dyspnea, Denies excessive sputum, Denies hemoptysis, Denies home oxygen, Denies pain, Denies pain on inspiration, Denies pleurisy, Denies respiratory infections, Denies sleep apnea, Denies snoring, Denies wheezing Gastrointestinal: Reports as per HPI, Reports abdominal pain, Reports belching, Reports indigestion, Reports nausea, Reports vomiting, Denies bloating, Denies BRBPR, Denies change in bowel habits, Denies coffee ground emesis, Denies constipation, Denies diarrhea, Denies dyspepsia, Denies early satiety, Denies excessive gas, Denies heartburn, Denies hematemesis, Denies hematochezia, Denies jaundice, Denies lactose intolerance, Denies loss of appetite, Denies melena Genitourinary: Reports as per HPI, Denies decreased libido, Denies difficulties fathering child, Denies discharge, Denies dysuria, Denies erectile dysfunction, Denies flank pain, Denies genital pain, Denies genital sores, Denies hematuria, Denies impotence, Denies incontinence, Denies kidney stones, Denies nocturia, Denies polyuria, Denies testicular lump, Denies testicular pain, Denies urinary frequency, Denies urinary hesitancy, Denies urinary retention Musculoskeletal: Reports as per HPI, Denies arm numbness/tingling, Denies atrophy, Denies fractures, Denies frequent falls, Denies gait dysfunction, Denies hot joints, Denies leg numbness/tingling, Denies limitation of motion, Denies loss of height, Denies low back pain, Denies morning stiffness, Denies muscle cramps, Denies muscle weakness, Denies myalgias, Denies neck pain, Denies neck stiffness, Denies prior amputations, Denies redness of joints, Denies shooting arm pain, Denies shooting leg pain Integumentary: Reports as per HPI, Denies acne, Denies boils, Denies brittle nails, Denies change in hair/nails, Denies color changes, Denies darkening of skin, Denies depigmentation, Denies dryness, Denies foot/leg ulcers, Denies growths, Denies hirsutism, Denies lesions, Denies onychomycosis, Denies pruritus , Denies rash, Denies sores, Denies striae, Denies unusual bruising, Denies wounds Neurological: Reports as per HPI, Denies aphasia, Denies ataxia, Denies balance difficulties, Denies burning pain, Denies change in mentation, Denies change in smell/taste, Denies change in speech, Denies confusion, Denies convulsions, Denies double vision, Denies gait dysfunction, Denies head injury, Denies headaches, Denies hearing difficulties, Denies lack of coordination, Denies loss of vision, Denies memory loss, Denies migraines, Denies motor disturbance, Denies numbness, Denies paralysis, Denies paresthesias, Denies seizures, Denies sensory deficit, Denies spasticity, Denies syncope, Denies tic, Denies tingling , Denies transient paralysis, Denies tremors, Denies vertigo, Denies weakness, Denies visual changes Psychiatric: Reports as per HPI Endocrine: Reports as per HPI Hematologic/Lymphatic: Reports as per HPI, Denies easy bleeding, Denies easy bruising, Denies lymphadenopathy, Denies lymphedema, Denies thrombophilia Allergic/Immunologic: Reports as per HPI, Denies allergic rhinitis, Denies anaphylaxis, Denies angioedema, Denies gluten intolerance, Denies persistent infections, Denies seasonal allergies, Denies urticaria, Denies wheezing Past Medical History Past Medical History: Asthma, Hyperlipidemia, Hypertension, Prostate Disorder, Thyroid Disorder History of Any Multi-Drug Resistant Organisms: None Reported Past Surgical History: Adenoidectomy, Back Surgery, Hernia Repair, Tonsillectomy Additional Past Surgical History / Comment(s): left kidney removal, thyroid, cataracts Past Psychological History: Depression Smoking Status: Former smoker Past Alcohol Use History: Rare Past Drug Use History: None Reported Additional History: Mother from gallbladder carcinoma, father old age at 82, brother with prostate cancer and hypertension, one daughter healthy 2 sons healthy Medications and Allergies Home Medications Medication Instructions Recorded Confirmed Type Levothyroxine Sodium [Synthroid] 125 mcg PO DAILY 08/01/14 11/22/17 History Montelukast [Singulair] 10 mg PO DAILY 08/01/14 11/22/17 History Aspirin EC [Ecotrin Low Dose] 81 mg PO DAILY 11/10/16 11/22/17 History Atorvastatin Calcium [Lipitor] 20 mg PO DAILY 11/10/16 11/22/17 History Doxazosin [Cardura] 4 mg PO DAILY 11/10/16 11/22/17 History Glucosamine Sulfate 500 mg PO DAILY 11/10/16 11/22/17 History Isosorbide Mononitrate ER [Imdur] 60 mg PO DAILY 11/10/16 11/22/17 History Nitroglycerin Sl Tabs [Nitrostat] 0.4 mg SUBLINGUAL Q5M PRN 11/10/16 11/22/17 History Omeprazole [PriLOSEC] 20 mg PO AC-BRKFST 11/10/16 11/22/17 History Chondroitin Sulfate 150 mg PO DAILY 11/22/17 11/22/17 History Ferrous Sulfate [Feosol] 325 mg PO TID 11/22/17 11/22/17 History Finasteride [Proscar] 5 mg PO DAILY 11/22/17 11/22/17 History Metoprolol Succinate [Toprol XL] 25 mg PO DAILY 11/22/17 11/22/17 History Ranitidine HCl 150 mg PO HS 11/22/17 11/22/17 History Allergies Allergy/AdvReac Type Severity Reaction Status Date / Time No Known Allergies Allergy Verified 11/22/17 11:01 Physical Exam Vitals: Vital Signs Temp Pulse Pulse Pulse Resp BP BP 11/23/17 07:00 97.7 F 89 16 139/95 11/23/17 00:00 16 11/22/17 22:52 98.3 F 69 16 132/74 11/22/17 17:47 97.4 F L 70 16 170/83 11/22/17 16:05 98.1 F 63 16 148/83 11/22/17 14:31 74 16 131/71 11/22/17 13:43 82 16 142/68 Pulse Ox 11/23/17 07:00 98 11/23/17 00:00 11/22/17 22:52 92 L 11/22/17 17:47 95 11/22/17 16:05 96 11/22/17 14:31 97 11/22/17 13:43 98 Intake and Output 11/22/17 11/23/17 11/23/17 22:59 06:59 14:59 Intake Total 360 680 Balance 360 680 Intake: Intake, IV Titration 360 680 Amount Dextrose 5%-0.45% NaCl 1, 360 680 000 ml @ 120 mls/hr IV . Q8H20M [facility] Rx#:[id number] Other: # Voids 2 3 Weight 79.379 kg - Constitutional General appearance: cooperative, no acute distress - EENT Eyes: anicteric sclerae, EOMI, PERRLA, dentition normal, normal appearance ENT: hearing grossly normal, normal oropharynx - Neck Neck: normal ROM - Respiratory Respiratory: bilateral: CTA, negative: diminished, dullness, rales, rhonchi - Cardiovascular Rhythm: regular Heart sounds: normal: S1, S2 Abnormal Heart Sounds: no systolic murmur, no diastolic murmur, no rub, no S3 Gallop, no S4 Gallop, no click, no other - Gastrointestinal General gastrointestinal: normal bowel sounds, soft - Integumentary Integumentary: normal - Neurologic Neurologic: CNII-XII intact - Musculoskeletal Musculoskeletal: gait normal, strength equal bilaterally - Psychiatric Psychiatric: A&O x's 3, appropriate affect, intact judgment & insight Results CBC & Chem 7: 11/23/17 08:00 11/23/17 08:00 Labs: Abnormal Lab Results - Last 24 Hours (Table) 11/22/17 11/22/17 11/22/17 Range/Units 11:16 11:16 13:00 RBC (4.30-5.90) m/uL Hgb 12.9 L (13.0-17.5) gm/dL Hct 38.3 L (39.0-53.0) % Neutrophils # 7.8 H (1.3-7.7) k/uL Lymphocytes # 0.4 L (1.0-4.8) k/uL BUN (9-20) mg/dL Glucose 110 H (74-99) mg/dL Total Bilirubin 4.3 H (0.2-1.3) mg/dL AST 330 H (17-59) U/L ALT 294 H (21-72) U/L Alkaline Phosphatase 252 H (38-126) U/L Total Protein 6.2 L (6.3-8.2) g/dL Albumin (3.5-5.0) g/dL Urine Protein 1+ H (Negative) Urine Bilirubin 2+ H (Negative) Urine Bacteria Rare H (None) /hpf Urine Mucus Occasional H (None) /hpf 11/23/17 11/23/17 Range/Units 08:00 08:00 RBC 4.22 L (4.30-5.90) m/uL Hgb 12.2 L (13.0-17.5) gm/dL Hct 37.8 L (39.0-53.0) % Neutrophils # (1.3-7.7) k/uL Lymphocytes # 0.5 L (1.0-4.8) k/uL BUN 6 L (9-20) mg/dL Glucose 137 H (74-99) mg/dL Total Bilirubin 4.4 H (0.2-1.3) mg/dL AST 222 H (17-59) U/L ALT 252 H (21-72) U/L Alkaline Phosphatase 248 H (38-126) U/L Total Protein 5.6 L (6.3-8.2) g/dL Albumin 3.1 L (3.5-5.0) g/dL Urine Protein (Negative) Urine Bilirubin (Negative) Urine Bacteria (None) /hpf Urine Mucus (None) /hpf Laboratory Results WBC 6.4 k/uL (3.8-10.6) 11/23/17 08:00 RBC 4.22 m/uL (4.30-5.90) L 11/23/17 08:00 Hgb 12.2 gm/dL (13.0-17.5) L 11/23/17 08:00 Hct 37.8 % (39.0-53.0) L 11/23/17 08:00 MCV 89.4 fL (80.0-100.0) 11/23/17 08:00 MCH 28.9 pg (25.0-35.0) 11/23/17 08:00 MCHC 32.3 g/dL (31.0-37.0) 11/23/17 08:00 RDW 13.2 % (11.5-15.5) 11/23/17 08:00 Plt Count 235 k/uL (150-450) 11/23/17 08:00 Neutrophils % 80 % 11/23/17 08:00 Lymphocytes % 8 % 11/23/17 08:00 Monocytes % 7 % 11/23/17 08:00 Eosinophils % 2 % 11/23/17 08:00 Basophils % 0 % 11/23/17 08:00 Neutrophils # 5.1 k/uL (1.3-7.7) 11/23/17 08:00 Lymphocytes # 0.5 k/uL (1.0-4.8) L 11/23/17 08:00 Monocytes # 0.5 k/uL (0-1.0) 11/23/17 08:00 Eosinophils # 0.1 k/uL (0-0.7) 11/23/17 08:00 Basophils # 0.0 k/uL (0-0.2) 11/23/17 08:00 PT 11.1 sec (9.0-12.0) 11/23/17 08:00 INR 1.1 (<1.2) 11/23/17 08:00 Sodium 140 mmol/L (137-145) 11/23/17 08:00 Potassium 3.6 mmol/L (3.5-5.1) 11/23/17 08:00 Chloride 106 mmol/L (98-107) 11/23/17 08:00 Carbon Dioxide 26 mmol/L (22-30) 11/23/17 08:00 Anion Gap 8 mmol/L 11/23/17 08:00 BUN 6 mg/dL (9-20) L 11/23/17 08:00 Creatinine 0.70 mg/dL (0.66-1.25) 11/23/17 08:00 Est GFR (CKD-EPI)AfAm >90 (>60 ml/min/1.73 sqM) 11/23/17 08:00 Est GFR (CKD-EPI)NonAf 84 (>60 ml/min/1.73 sqM) 11/23/17 08:00 Glucose 137 mg/dL (74-99) H 11/23/17 08:00 Calcium 8.7 mg/dL (8.4-10.2) 11/23/17 08:00 Magnesium 1.9 mg/dL (1.6-2.3) 11/23/17 08:00 Total Bilirubin 4.4 mg/dL (0.2-1.3) H 11/23/17 08:00 AST 222 U/L (17-59) H 11/23/17 08:00 ALT 252 U/L (21-72) H 11/23/17 08:00 Alkaline Phosphatase 248 U/L (38-126) H 11/23/17 08:00 Total Protein 5.6 g/dL (6.3-8.2) L 11/23/17 08:00 Albumin 3.1 g/dL (3.5-5.0) L 11/23/17 08:00 Amylase 40 U/L (30-110) 11/23/17 08:00 Lipase 105 U/L (23-300) 11/23/17 08:[address] [place] 11/22/17 13:00 Urine Appearance Clear (Clear) 11/22/17 13:00 Urine pH 6.0 (5.0-8.0) 11/22/17 13:00 Ur Specific [place] 1.018 (1.001-1.035) 11/22/17 13:00 Urine Protein 1+ (Negative) H 11/22/17 13:00 Urine Glucose (UA) Negative (Negative) 11/22/17 13:00 Urine Ketones Negative (Negative) 11/22/17 13:00 Urine Blood Negative (Negative) 11/22/17 13:00 Urine Nitrite Negative (Negative) 11/22/17 13:00 Urine Bilirubin 2+ (Negative) H 11/22/17 13:00 Urine Urobilinogen 12.0 mg/dL (<2.0) 11/22/17 13:00 Ur Leukocyte Esterase Negative (Negative) 11/22/17 13:00 Urine RBC 2 /hpf (0-5) 11/22/17 13:00 Urine WBC 2 /hpf (0-5) 11/22/17 13:00 Urine Bacteria Rare /hpf (None) H 11/22/17 13:00 Urine Mucus Occasional /hpf (None) H 11/22/17 13:00 Hepatitis A IgM Ab NEGATIVE 11/22/17 12:49 Hep Bs Antigen Non-Reactive (Non-Reactive) 11/22/17 12:33 Hep B Core IgM Ab Non-Reactive (Non-Reactive) 11/22/17 12:33 Hep C IgG Ab Non-Reactive (Non-Reactive) 11/22/17 12:33 Thrombosis Risk Factor Assmnt - DVT/VTE Prophylaxis DVT/VTE Prophylaxis: Pharmacologic Prophylaxis ordered - Choose All That Apply Each Factor Represents 1 point: Abnormal pulmonary function (COPD), Acute [facility] Each Risk Factor Represents 3 Points: Age 75 years or older Thrombosis Risk Factor Assessment Total Risk Factor Score: 5 Thrombosis Risk Factor Assessment Level: High Risk Assessment and Plan Plan: 1. Jaundice associated with abdominal pain, gallbladder ultrasound showing gallbladder stones with no common bile duct dilatation, MRCP is requested by gastrology, consult were made with their service with planned MRCP today and possible ERCP tomorrow. 2. Cholelithiasis with chronic cholecystitis, with possibility off choledocholithiasis, MRCP to be done November 23, ERCP in the morning, heparin is not provided for the atrial fibrillation with the anticipated procedure tomorrow 3. Atrial fibrillation chronic with rapid ventricular rate, patient was transferred from medical floor as she did not respond continuously on atenolol 50 mg, this needs to be readjusted after Cardizem has been weaned off, patient would need Cardizem drip cardiology consult, echocardiogram and a pad function test, telemetry in 6 floor. Patient would need long-term anticoagulation with Coumadin or factor X a inhibitors unless contraindicated 4. Acute obstructive jaundice, monitor for common bile duct stones, monitor liver function test, MRCP as mentioned, hepatitis panel screen is negative 4. Asthma history without any exacerbation, on Singulair 6. History of melanoma left cheek, unknown activity 7. Hyperlipidemia, not on statins on hold secondary to elevated liver function tests 8. Hypothyroidism on levothyroxine 125 daily next 9. CAD on Imdur 60 mg daily Lipitor is held secondary to elevated liver function tests, metoprolol is increased to 50 mg daily secondary to A. fib RVR, 10. BPH on Cardura Proscar no changes made 11. GERD on maintenance Pepcid 20 mg daily and Zantac 150 milligram at bedtime 12. GI prophylaxis on maintenanc PPI DVT prophylaxis, heparin IV or factor X a inhibitors will be given after procedure, otherwise JESSIE hose and early ambulation
[2017-11-24] MEDS: DEXTROSE 5%-0.45% NACL 1,000 ML IV SCH ×3 (03:41→17:46)
[2017-11-24 07:09] LABS: Basophils % (A) 0 %; Eosinophils # (A) 0.3 k/uL (0-0.7); Eosinophils % (A) 4 %; HCT 37.3 % (39.0-53.0); HGB 12.3 gm/dL (13.0-17.5); Lymphocytes # (A) 0.7 k/uL (1.0-4.8); Lymphocytes % (A) 11 %; MCH 29.6 pg (25.0-35.0); MCHC 32.9 g/dL (31.0-37.0); Mean Platelet Volume 7.6; Monocytes # (A) 0.4 k/uL (0-1.0); Monocytes % (A) 6 %; Neutrophils # (A) 4.5 k/uL (1.3-7.7); Neutrophils % (A) 75 %; Platelet Count 276 k/uL (150-450); RBC 4.15 m/uL (4.30-5.90); RDW 13.1 % (11.5-15.5)
[2017-11-24 07:27] LABS: ALT 197 U/L (21-72); AST 125 U/L (17-59); Albumin 2.9 g/dL (3.5-5.0); Alkaline Phosphatase 229 U/L (38-126); Anion Gap 8 mmol/L; Blood Urea Nitrogen 6 mg/dL (9-20); Calcium 8.3 mg/dL (8.4-10.2); Carbon Dioxide 25 mmol/L (22-30); Chloride 106 mmol/L (98-107); Glucose 123 mg/dL (74-99); Potassium 3.6 mmol/L (3.5-5.1); Sodium 139 mmol/L (137-145); Total Bilirubin 2.5 mg/dL (0.2-1.3); Total Protein 5.3 g/dL (6.3-8.2)
[2017-11-24 08:20] LABS: T4, Free (Free Thyroxine) 1.83 ng/dL (0.78-2.19)
[2017-11-24] MEDS: PANTOPRAZOLE 40 MG TABLET PO SCH (08:53)
[2017-11-24] MEDS: DOXAZOSIN 4 MG TAB PO SCH (08:53)
[2017-11-24] MEDS: MONTELUKAST 10 MG TAB PO SCH (08:53)
[2017-11-24] MEDS: ISOSORBIDE MONONITRATE ER 60 MG TAB.ER.24H PO SCH (08:53)
[2017-11-24] MEDS: METOPROLOL SUCCINATE (ER) 25 MG TAB.ER.24H PO SCH (08:53)
[2017-11-24] MEDS: FINASTERIDE 5 MG TAB PO SCH (08:53)
[2017-11-24] MEDS ORDERED: METOPROLOL SUCCINATE (ER) 25 MG TAB.ER.24H PO STA (09:34)
--- NOTE | 2017-11-24 10:53 | P.PN ---
Subjective Progress Note Date: 11/24/17 Principal diagnosis: Abdominal pain choledocholithiasis 87-year-old male admitted with abdominal pain elevated liver function tests with underlying cholelithiasis. MRCP reported, filling defect common bile duct felt to reflect underlying calculus or polyp. Total bili has improved this morning to 2.5. Patient developed A. fib with RVR last night transferred to cardiac floor. Present heart rate in the 150s. Denies chest pain shortness of breath. Afebrile. Objective - Vital Signs Vital signs: Vital Signs Temp 97.1 F L 11/24/17 08:10 Pulse 115 H 11/24/17 08:10 Resp 16 11/24/17 08:10 BP 145/90 11/24/17 08:10 Pulse Ox 96 11/24/17 08:10 Intake & Output 11/23/17 11/24/17 11/24/17 18:59 06:59 18:59 Intake Total 1400 Output Total 400 Balance 1000 Weight 80.1 kg Intake: Intake, IV Titration 1200 Amount Dextrose 5%-0.45% NaCl 1, 1200 000 ml @ 120 mls/hr IV . Q8H20M [facility] Rx#:[id number] Oral 200 Output: Urine 400 Other: Voiding Method Urinal # Voids 7 1 - Exam General appearance: The patient is alert, oriented, in no acute distress. HET: Head is normocephalic and atraumatic. Pupils are equal and reactive. Oropharynx is clear without lesions. Neck: Supple without lymphadenopathy. Trachea midline. Heart: S1 S2. Irregular. Lungs: No crackles or wheezes are heard. Abdomen: Soft, nontender, nondistended with bowel sounds. No peritoneal signs. No palpable organomegaly or masses. Extremities: Normal skin color and turgor. No cyanosis, rash, ulceration, clubbing, or edema. Radial and pedal pulses are 2/4 bilaterally. Neurological: No focal deficits. Strength and sensation are grossly intact. - Labs CBC & Chem 7: 11/24/17 06:08 11/24/17 06:08 Labs: Abnormal Lab Results - Last 24 Hours (Table) 11/24/17 11/24/17 Range/Units 06:08 06:08 RBC 4.15 L (4.30-5.90) m/uL Hgb 12.3 L (13.0-17.5) gm/dL Hct 37.3 L (39.0-53.0) % Lymphocytes # 0.7 L (1.0-4.8) k/uL BUN 6 L (9-20) mg/dL Glucose 123 H (74-99) mg/dL Calcium 8.3 L (8.4-10.2) mg/dL Total Bilirubin 2.5 H (0.2-1.3) mg/dL AST 125 H (17-59) U/L ALT 197 H (21-72) U/L Alkaline Phosphatase 229 H (38-126) U/L Total Protein 5.3 L (6.3-8.2) g/dL Albumin 2.9 L (3.5-5.0) g/dL TSH 7.370 H (0.465-4.680) mIU/L Assessment and Plan (1) Abdominal pain Narrative/Plan: Acute upper abdominal pain nausea vomiting with elevated liver enzymes and radiographic imaging reporting cholelithiasis possible choledocholithiasis possible polyp with improvement in liver function tests. Current Visit: Yes Status: Acute Code(s): R10.9 - UNSPECIFIED ABDOMINAL PAIN SNOMED Code(s): 37925126 (2) Jaundice Current Visit: Yes Status: Acute Code(s): R17 - UNSPECIFIED JAUNDICE SNOMED Code(s): 74579309 (3) Cholelithiasis Current Visit: Yes Status: Acute Code(s): K80.20 - CALCULUS OF GALLBLADDER W /O CHOLECYSTITIS W/O OBSTRUCTION SNOMED Code(s): 923561362 (4) Elevated liver enzymes Current Visit: Yes Status: Acute Code(s): R74.8 - ABNORMAL LEVELS OF OTHER SERUM ENZYMES SNOMED Code(s): 745001186 (5) Atrial fibrillation with RVR Narrative/Plan: New-onset Current Visit: Yes Status: Acute Code(s): I48.91 - UNSPECIFIED ATRIAL FIBRILLATION SNOMED Code(s): 801123873635174 Plan: 1. Case was discussed with wire stitcher machine Dr. Zavaleta heart rate is presently in the 140s-150s therefore will postpone ERCP today to improve rate control and reschedule ERCP tomorrow morning. Healthy heart diet today. Nothing by mouth after midnight. Patient was updated with plan a care. All questions were answered to his satisfaction. Assessment and plan a care discussed with Dr. Mcmahan
[2017-11-24] MEDS ORDERED: INDOMETHACIN 50MG SUPPOSITORY RECTAL ONE (12:00)
[2017-11-24] MEDS ORDERED: LEVOFLOXACIN 500MG-D5W PMX 500 MG in DEXTROSE/WATER 1 100ML.BAG IVPB ONE (12:00)
--- NOTE | 2017-11-24 13:49 | P.CRDCN ---
History of Present Illness History of present illness: Elderly male presenting with jaundice and abdominal pain no chest discomfort no dizziness lightheadedness no palpitations found to be in atrial fibrillation RVR He is on aspirin only no anticoagulation Past medical history of asthma dyslipidemia hypertension enlarged prostate thyroid disorder Left kidney removal Past history of smoking Medication list was reviewed and as documented in the chart Review of systems: No fever chills or rigors, no cough, phlegm or expectoration , + nausea, vomiting and jaundice, no hematuria, dysuria, no musculoskeletal complaints, no strokes or seizures, no skin lesions. Labs reviewed hemoglobin 12.3 and at lites normal BUN and creatinine normal magnesium 1.8 TSH high 7.37 On examination he is afebrile 97.1F pulse rate is elevated. 100 and 120 bpm at rest normal respirations blood pressure 103/64 mmHg Breath sounds are reduced no rhonchi no crackles Heart sounds are irregular no murmurs or gallops Extremity is warm no edema Impression Persistent atrial fibrillation with RVR TSH 7.37 Plan Hold anticoagulation for ERCP but increase metoprolol succinate 50 mrem by mouth daily May need to increase the dose further thereafter Past Medical History Past Medical History: Asthma, Hyperlipidemia, Hypertension, Prostate Disorder, Thyroid Disorder History of Any Multi-Drug Resistant Organisms: None Reported Past Surgical History: Adenoidectomy, Back Surgery, Hernia Repair, Tonsillectomy Additional Past Surgical History / Comment(s): left kidney removal, thyroid, cataracts Past Psychological History: Depression Smoking Status: Former smoker Past Alcohol Use History: Rare Past Drug Use History: None Reported Medications and Allergies Home Medications Medication Instructions Recorded Confirmed Type Levothyroxine Sodium [Synthroid] 125 mcg PO DAILY 08/01/14 11/22/17 History Montelukast [Singulair] 10 mg PO DAILY 08/01/14 11/22/17 History Aspirin EC [Ecotrin Low Dose] 81 mg PO DAILY 11/10/16 11/22/17 History Atorvastatin Calcium [Lipitor] 20 mg PO DAILY 11/10/16 11/22/17 History Doxazosin [Cardura] 4 mg PO DAILY 11/10/16 11/22/17 History Isosorbide Mononitrate ER [Imdur] 60 mg PO DAILY 11/10/16 11/22/17 History Nitroglycerin Sl Tabs [Nitrostat] 0.4 mg SUBLINGUAL Q5M PRN 11/10/16 11/22/17 History Omeprazole [PriLOSEC] 20 mg PO AC-BRKFST 11/10/16 11/22/17 History RX: Glucosamine Sulfate 500 mg PO DAILY 11/10/16 11/22/17 History Chondroitin Sulfate 150 mg PO DAILY 11/22/17 11/22/17 History Ferrous Sulfate [Feosol] 325 mg PO TID 11/22/17 11/22/17 History Finasteride [Proscar] 5 mg PO DAILY 11/22/17 11/22/17 History Metoprolol Succinate [Toprol XL] 25 mg PO DAILY 11/22/17 11/22/17 History RX: Ranitidine HCl 150 mg PO HS 11/22/17 11/22/17 History Allergies Allergy/AdvReac Type Severity Reaction Status Date / Time No Known Allergies Allergy Verified 11/22/17 11:01 Physical Exam Vitals: Vital Signs Temp Pulse Pulse Resp BP Pulse Ox 11/24/17 11:50 73 16 103/64 97 11/24/17 08:10 97.1 F L 115 H 16 145/90 96 11/24/17 04:00 97.5 F L 105 H 103 H 18 124/71 97 11/24/17 00:00 97 F L 103 H 103 H 18 123/92 96 11/23/17 20:00 97 F L 115 H 18 114/70 97 11/23/17 15:00 97.8 F 99 18 115/68 93 L Intake and Output 11/23/17 11/24/17 11/24/17 22:59 06:59 14:59 Intake Total 200 1200 960 Output Total 400 800 Balance 200 800 160 Intake: Intake, IV Titration 1200 960 Amount Dextrose 5%-0.45% NaCl 1, 1200 960 000 ml @ 120 mls/hr IV . Q8H20M [facility] Rx#:[id number] Oral 200 Output: Urine 400 800 Other: Voiding Method Urinal Urinal Urinal # Voids 1 3 Weight 80.1 kg Results 11/24/17 06:08 11/24/17 06:08 Cardiac Enzymes 11/24/17 Range/Units 06:08 AST 125 H (17-59) U/L CBC 11/24/17 Range/Units 06:08 WBC 6.0 (3.8-10.6) k/uL RBC 4.15 L (4.30-5.90) m/uL Hgb 12.3 L (13.0-17.5) gm/dL Hct 37.3 L (39.0-53.0) % Plt Count 276 (150-450) k/uL Comprehensive Metabolic Panel 11/24/17 Range/Units 06:08 Sodium 139 (137-145) mmol/L Potassium 3.6 (3.5-5.1) mmol/L Chloride 106 (98-107) mmol/L Carbon Dioxide 25 (22-30) mmol/L BUN 6 L (9-20) mg/dL Creatinine 0.76 (0.66-1.25) mg/dL Glucose 123 H (74-99) mg/dL Calcium 8.3 L (8.4-10.2) mg/dL AST 125 H (17-59) U/L ALT 197 H (21-72) U/L Alkaline Phosphatase 229 H (38-126) U/L Total Protein 5.3 L (6.3-8.2) g/dL Albumin 2.9 L (3.5-5.0) g/dL Current Medications Generic Name Dose Route Start Last Admin Trade Name Freq PRN Reason Stop Dose Admin Doxazosin Mesylate 4 mg 11/23/17 09:00 11/24/17 08:53 Cardura PO 4 mg DAILY [facility] Administration Famotidine 20 mg 11/22/17 21:00 11/23/17 20:26 Pepcid PO 20 mg HS [facility] Administration Finasteride 5 mg 11/23/17 09:00 11/24/17 08:53 Proscar PO 5 mg DAILY [facility] Administration Dextrose/Sodium Chloride 1,000 mls @ 120 mls/hr 11/22/17 14:30 11/24/17 06:49 Dextrose 5%-1/2ns Iv Soln IV 120 mls/hr .Q8H20M [facility] Administration Levofloxacin 500 mg/ IV 100 mls @ 100 mls/hr 11/25/17 08:30 Solution IVPB 11/25/17 09:29 ONCE ONE Indomethacin 100 mg 11/25/17 08:30 Indocin RECTAL 11/25/17 08:31 ONCE ONE Isosorbide Mononitrate 60 mg 11/23/17 09:00 11/24/17 08:53 Imdur PO 60 mg DAILY [facility] Administration Levothyroxine Sodium 137 mcg 11/24/17 13:30 Synthroid PO DAILY@0630 [facility] Metoprolol Succinate 50 mg 11/25/17 09:00 Toprol Xl PO DAILY [facility] Montelukast Sodium 10 mg 11/23/17 09:00 11/24/17 08:53 Singulair PO 10 mg DAILY [facility] Administration Morphine Sulfate 4 mg 11/22/17 14:23 11/23/17 23:36 Morphine Sulfate (Inj) IV 4 mg Q4HR PRN Administration Severe Pain Naloxone HCl 0.2 mg 11/22/17 14:23 Narcan IV Q2M PRN Opioid Reversal Nitroglycerin 0.4 mg 11/22/17 18:20 Nitrostat SUBLINGUAL Q5M PRN Chest Pain Ondansetron HCl 4 mg 11/22/17 14:23 Zofran IVP Q8HR PRN Nausea And Vomiting Pantoprazole Sodium 40 mg 11/23/17 07:30 11/24/17 08:53 Protonix PO 40 mg AC-BRKFST [facility] Administration Intake and Output 11/23/17 11/24/17 11/24/17 22:59 06:59 14:59 Intake Total 200 1200 960 Output Total 400 800 Balance 200 800 160 Intake: Intake, IV Titration 1200 960 Amount Dextrose 5%-0.45% NaCl 1, 1200 960 000 ml @ 120 mls/hr IV . Q8H20M [facility] Rx#:[id number] Oral 200 Output: Urine 400 800 Other: Voiding Method Urinal Urinal Urinal # Voids 1 3 Weight 80.1 kg 11/24/17 06:08 11/24/17 06:08
[2017-11-24] MEDS: LEVOTHYROXINE 137 MCG TAB PO SCH (13:55)
--- NOTE | 2017-11-24 14:46 | P.PN ---
Subjective Progress Note Date: 11/24/17 Patient seen and examined at bedside. Family was present at bedside. States he still has some epigastric and right upper quadrant abdominal pain. MRCP was completed this a.m. Plan for ERCP tomorrow. Patient is in A. fib with RVR and is being seen by cardiology. Objective - Vital Signs Vital signs: Vital Signs Temp 97.1 F L 11/24/17 08:10 Pulse 73 11/24/17 11:50 Resp 16 11/24/17 11:50 BP 103/64 11/24/17 11:50 Pulse Ox 97 11/24/17 11:50 Intake & Output 11/23/17 11/24/17 11/24/17 18:59 06:59 18:59 Intake Total 1400 960 Output Total 400 800 Balance 1000 160 Weight 80.1 kg Intake: Intake, IV Titration 1200 960 Amount Dextrose 5%-0.45% NaCl 1, 1200 960 000 ml @ 120 mls/hr IV . Q8H20M [facility] Rx#:[id number] Oral 200 Output: Urine 400 800 Other: Voiding Method Urinal Urinal # Voids 7 1 3 - Constitutional General appearance: Present: cooperative, no acute distress - EENT Eyes: Present: PERRLA - Neck Neck: Present: normal ROM - Respiratory Details: No difficulty with respiration - Gastrointestinal Gastrointestinal Comment(s): Soft, mild tenderness in epigastrium and right upper quadrant, no rebound, no guarding, nondistended - Psychiatric Psychiatric: Present: A&O x's 3, appropriate affect - Labs CBC & Chem 7: 11/24/17 06:08 11/24/17 06:08 Labs: Abnormal Lab Results - Last 24 Hours (Table) 11/24/17 11/24/17 Range/Units 06:08 06:08 RBC 4.15 L (4.30-5.90) m/uL Hgb 12.3 L (13.0-17.5) gm/dL Hct 37.3 L (39.0-53.0) % Lymphocytes # 0.7 L (1.0-4.8) k/uL BUN 6 L (9-20) mg/dL Glucose 123 H (74-99) mg/dL Calcium 8.3 L (8.4-10.2) mg/dL Total Bilirubin 2.5 H (0.2-1.3) mg/dL AST 125 H (17-59) U/L ALT 197 H (21-72) U/L Alkaline Phosphatase 229 H (38-126) U/L Total Protein 5.3 L (6.3-8.2) g/dL Albumin 2.9 L (3.5-5.0) g/dL TSH 7.370 H (0.465-4.680) mIU/L - Imaging and Cardiology MRI - abdomen: report reviewed (Filling defect in the common bile duct, cannot rule out stones versus polyp) Assessment and Plan (1) Cholelithiasis Narrative/Plan: Will evaluate ERCP. If choledocholithiasis, I did discuss a possible laparoscopic cholecystectomy with the patient. The patient prefers having this done as an outpatient. We will discuss further after ERCP is completed. Current Visit: Yes Status: Acute Code(s): K80.20 - CALCULUS OF GALLBLADDER W /O CHOLECYSTITIS W/O OBSTRUCTION SNOMED Code(s): 260308431 (2) Elevated liver enzymes Narrative/Plan: MRCP was completed today. There is a filling defect in the midpoint of the common bile duct. This is either stone versus polyp. Due to the patient currently being in A. fib with RVR, ERCP is planned for tomorrow. We will follow-up the ERCP. Current Visit: Yes Status: Acute Code(s): R74.8 - ABNORMAL LEVELS OF OTHER SERUM ENZYMES SNOMED Code(s): 396506630
[2017-11-24] MEDS ORDERED: MORPHINE ORAL SOLN 10 MG/5 ML CUP PO PRN (15:45)
[2017-11-24] MEDS: FAMOTIDINE 20 MG TAB PO SCH (20:24)
[2017-11-25] MEDS: DEXTROSE 5%-0.45% NACL 1,000 ML IV SCH ×2 (00:03→08:47)
[2017-11-25 06:15] LABS: Basophils % (A) 0 %; Eosinophils # (A) 0.3 k/uL (0-0.7); Eosinophils % (A) 4 %; HCT 36.9 % (39.0-53.0); HGB 12.3 gm/dL (13.0-17.5); Lymphocytes # (A) 0.7 k/uL (1.0-4.8); Lymphocytes % (A) 10 %; MCH 29.4 pg (25.0-35.0); MCHC 33.2 g/dL (31.0-37.0); MCV 88.5 fL (80.0-100.0); Mean Platelet Volume 7.3; Monocytes # (A) 0.4 k/uL (0-1.0); Monocytes % (A) 7 %; Neutrophils # (A) 5.2 k/uL (1.3-7.7); Neutrophils % (A) 76 %; Platelet Count 292 k/uL (150-450); RBC 4.18 m/uL (4.30-5.90); WBC 6.9 k/uL (3.8-10.6)
[2017-11-25 06:29] LABS: Anion Gap 9 mmol/L; Blood Urea Nitrogen 5 mg/dL (9-20); Calcium 8.5 mg/dL (8.4-10.2); Carbon Dioxide 23 mmol/L (22-30); Chloride 108 mmol/L (98-107); Glucose 125 mg/dL (74-99); Potassium 3.4 mmol/L (3.5-5.1); Sodium 140 mmol/L (137-145)
[2017-11-25] MEDS: PANTOPRAZOLE 40 MG TABLET PO SCH (06:35)
[2017-11-25] MEDS: LEVOTHYROXINE 137 MCG TAB PO SCH (06:35)
[2017-11-25] MEDS ORDERED: POTASSIUM CHLORIDE ER 20 MEQ TAB.ER PO STA (08:14)
[2017-11-25] MEDS ORDERED: INDOMETHACIN 50MG SUPPOSITORY RECTAL ONE (08:30)
[2017-11-25] MEDS ORDERED: LEVOFLOXACIN 500MG-D5W PMX 500 MG in DEXTROSE/WATER 1 100ML.BAG IVPB ONE (08:30)
[2017-11-25] MEDS: MONTELUKAST 10 MG TAB PO SCH (08:47)
[2017-11-25] MEDS: FINASTERIDE 5 MG TAB PO SCH (08:47)
[2017-11-25] MEDS: DOXAZOSIN 4 MG TAB PO SCH (08:47)
[2017-11-25] MEDS: ISOSORBIDE MONONITRATE ER 60 MG TAB.ER.24H PO SCH (08:47)
[2017-11-25] MEDS ORDERED: METOPROLOL SUCCINATE (ER) 50 MG TAB.ER.24H PO SCH (09:00)
--- NOTE | 2017-11-25 09:55 | P.PN ---
Subjective Progress Note Date: 11/24/17 This is an 87-year-old gentleman patient of Dr. Perla. 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 Pain has been there for the past 1-1/2 weeks , with diminished appetite no fried fatty food intolerance, patient has pain across the subcostal area bilaterally left upper quadrant and right upper quadrant area, patient did not seek any consultation for this at all, and subsequently was seen in emergency room for evaluation. Patient was noted to be jaundice, with elevated liver function tests and alkaline phosphatase Total bili was 4.4, AST 222, ALT of 252, alkaline phosphatase 248 on the ER labs. Patient denies any fever no chills no hepato-masses, no melena, hematochezia, patient denies any alcohol intake, Emergency room, ultrasound shows multiple fundal gallstones with mildly thickened gallbladder wall, common bile duct is within normal limits 0.4 centimeter, hepatic steatosis noted patient was admitted with consultations to Dr. Peck, gastrology on my evaluation. Patient was noted to be in atrial fibrillation with rapid ventricular rate, additional atenolol 25 mg was given this morning, however patient goes into the 150s with ambulation, patient was transferred to medical floor with [facility] drip and consultation to cardiology patient is on aspirin only for anticoagulation, patient is not on any other blood thinners 11/24: Patient's heart rate remains at 115. Patient received a one-time dose of metoprolol 25 mg oral and has been on 25 mg daily. TSH is 7.3 and levothyroxine increased 137 g. Liver function tests are improving. Dr. Peck is planning for ERCP. Objective - Vital Signs Vital signs: Vital Signs Temp 97.1 F L 11/24/17 08:10 Pulse 73 11/24/17 11:50 Resp 16 11/24/17 11:50 BP 103/64 11/24/17 11:50 Pulse Ox 97 11/24/17 11:50 Intake & Output 11/23/17 11/24/17 11/24/17 18:59 06:59 18:59 Intake Total 1400 960 Output Total 400 800 Balance 1000 160 Weight 80.1 kg Intake: Intake, IV Titration 1200 960 Amount Dextrose 5%-0.45% NaCl 1, 1200 960 000 ml @ 120 mls/hr IV . Q8H20M [facility] Rx#:[id number] Oral 200 Output: Urine 400 800 Other: Voiding Method Urinal Urinal # Voids 7 1 3 - Exam General appearance: cooperative, no acute distress - EENT Eyes: anicteric sclerae, EOMI, PERRLA, dentition normal, normal appearance ENT: hearing grossly normal, normal oropharynx - Neck Neck: normal ROM - Respiratory Respiratory: bilateral: CTA, negative: diminished, dullness, rales, rhonchi - Cardiovascular Rhythm: regular Heart sounds: normal: S1, S2 Abnormal Heart Sounds: no systolic murmur, no diastolic murmur, no rub, no S3 Gallop, no S4 Gallop, no click, no other - Gastrointestinal General gastrointestinal: normal bowel sounds, soft - Integumentary Integumentary: normal - Neurologic Neurologic: CNII-XII intact - Musculoskeletal Musculoskeletal: gait normal, strength equal bilaterally - Psychiatric Psychiatric: A&O x's 3, appropriate affect, intact judgment & insight - Labs CBC & Chem 7: 11/25/17 05:31 11/25/17 05:31 Labs: Abnormal Lab Results - Last 24 Hours (Table) 11/24/17 11/24/17 Range/Units 06:08 06:08 RBC 4.15 L (4.30-5.90) m/uL Hgb 12.3 L (13.0-17.5) gm/dL Hct 37.3 L (39.0-53.0) % Lymphocytes # 0.7 L (1.0-4.8) k/uL BUN 6 L (9-20) mg/dL Glucose 123 H (74-99) mg/dL Calcium 8.3 L (8.4-10.2) mg/dL Total Bilirubin 2.5 H (0.2-1.3) mg/dL AST 125 H (17-59) U/L ALT 197 H (21-72) U/L Alkaline Phosphatase 229 H (38-126) U/L Total Protein 5.3 L (6.3-8.2) g/dL Albumin 2.9 L (3.5-5.0) g/dL TSH 7.370 H (0.465-4.680) mIU/L Assessment and Plan Plan: 1. Jaundice associated with abdominal pain, gallbladder ultrasound showing gallbladder stones with no common bile duct dilatation, MRCP is requested by gastrology, consult were made with their service with planned MRCP today and possible ERCP tomorrow. 2. Cholelithiasis with chronic cholecystitis, with possibility off choledocholithiasis, MRCP to be done November 23, ERCP in the morning, heparin is not provided for the atrial fibrillation with the anticipated procedure tomorrow 3. Atrial fibrillation chronic with rapid ventricular rate, patient was transferred from medical floor as she did not respond continuously on atenolol 50 mg, this needs to be readjusted after Cardizem has been weaned off, patient would need Cardizem drip cardiology consult, echocardiogram and a pad function test, telemetry in 6 floor. Patient would need long-term anticoagulation with Coumadin or factor X a inhibitors unless contraindicated. Patient is currently on metoprolol extended release 50 mg daily. 4. Acute obstructive jaundice, monitor for common bile duct stones, monitor liver function test, MRCP as mentioned, hepatitis panel screen is negative 4. Asthma history without any exacerbation, on Singulair 6. History of melanoma left cheek, unknown activity 7. Hyperlipidemia, not on statins on hold secondary to elevated liver function tests 8. Hypothyroidism on levothyroxine 125 daily next 9. CAD on Imdur 60 mg daily Lipitor is held secondary to elevated liver function tests, metoprolol is increased to 50 mg daily secondary to A. fib RVR, 10. BPH on Cardura Proscar no changes made 11. GERD on maintenance Pepcid 20 mg daily and Zantac 150 milligram at bedtime 12. GI prophylaxis on maintenanc PPI DVT prophylaxis, heparin IV or factor X a inhibitors will be given after procedure, otherwise JESSIE hose and early ambulation Discharge plan: Return home Impression and plan of care have been directed as dictated by the signing physician. Jaclyn Trammell nurse practitioner acting as scribe for signing physician.
--- NOTE | 2017-11-25 12:57 | P.PN ---
Subjective Progress Note Date: 11/25/17 This is an 87-year-old male patient who presented to the hospital with jaundice and associated abdominal discomfort. No chest discomfort or dizziness, no lightheadedness or palpitations. Patient was found to be in atrial fibrillation with a rapid ventricular response. Past medical history is consistent for asthma, hyperlipidemia, hypertension, enlarged prostate, and hypothyroidism. He also has a prior history of smoking. Ultrasound was performed which revealed multiple gallstones with mildly thickened gallbladder wall. Consultation in progress with Dr. Mcmahan. ERCP was initially scheduled to be firm today but because of elevated heart rate this was detained. We increased the dose of beta immanuel to a 3 times a day dose today for more optimal heart rate control. Objective - Vital Signs Vital signs: Vital Signs Temp 97.4 F L 11/25/17 08:10 Pulse 120 H 11/25/17 08:10 Resp 16 11/25/17 08:10 BP 135/78 11/25/17 08:10 Pulse Ox 97 11/25/17 08:10 Intake & Output 11/24/17 11/25/17 11/25/17 18:59 06:59 18:59 Intake Total 1200 1110 530 Output Total 800 1030 100 Balance 400 80 430 Weight 81.1 kg Intake: Intake, IV Titration 960 960 480 Amount Dextrose 5%-0.45% NaCl 1, 960 960 480 000 ml @ 120 mls/hr IV . Q8H20M [facility] Rx#:[id number] Oral 240 150 50 Output: Urine 800 1030 100 Other: Voiding Method Urinal Toilet Toilet Urinal Urinal # Voids 3 1 - Exam PHYSICAL EXAMINATION: HEENT: Head is atraumatic, normocephalic. Pupils equal, round. Neck is supple. There is no elevated jugular venous pressure. HEART EXAMINATION: Heart S1 and S2 irregularly irregular CHEST EXAMINATION: Lungs are clear to auscultation and precussion. No chest wall tenderness is noted on palpation or with deep breathing. ABDOMEN: Soft, generalized tenderness . Bowel sounds are heard. No organomegaly noted. EXTREMITIES: 2+ peripheral pulses with no evidence of peripheral edema and no calf tenderness noted. NEUROLOGIC patient is awake, alert and oriented -3. . - Labs CBC & Chem 7: 11/25/17 05:31 11/25/17 05:31 Labs: Abnormal Lab Results - Last 24 Hours (Table) 11/25/17 11/25/17 Range/Units 05:31 05:31 RBC 4.18 L (4.30-5.90) m/uL Hgb 12.3 L (13.0-17.5) gm/dL Hct 36.9 L (39.0-53.0) % Lymphocytes # 0.7 L (1.0-4.8) k/uL Potassium 3.4 L (3.5-5.1) mmol/L Chloride 108 H (98-107) mmol/L BUN 5 L (9-20) mg/dL Glucose 125 H (74-99) mg/dL Assessment and Plan Plan: Assessment and plan 1. Jaundice associated with abdominal pain, gallbladder ultrasound showing gallbladder stones with no common bile duct dilatation, MRCP is requested by gastrology. 2. Cholelithiasis with chronic cholecystitis, with possibility off choledocholithiasis, MRCP to be done November 23, ERCP in the morning 3. Atrial fibrillation chronic with rapid ventricular rate 4. Acute obstructive jaundice, monitor for common bile duct stones, monitor liver function test, MRCP as mentioned, hepatitis panel screen is negative 4. Asthma history without any exacerbation 6. History of melanoma left cheek 7. Hyperlipidemia 8. Hypothyroidism 9. CAD 10. BPH 11. GERD Plan We will continue to hold anticoagulation for ERCP, increase beta immanuel to 3 times a day. DNP note has been reviewed, I agree with a documented findings and plan of care. Patient was seen and examined.
--- NOTE | 2017-11-25 13:53 | P.PN ---
Subjective Progress Note Date: 11/25/17 Patient seen and examined at bedside. Currently having lunch and tolerating meals. He denies any abdominal pain at this time. ERCP that was planned for today is delayed until tomorrow. Cardiology is on board for heart rate control for Duncan saucedo. Objective - Vital Signs Vital signs: Vital Signs Temp 97.4 F L 11/25/17 08:10 Pulse 120 H 11/25/17 08:10 Resp 16 11/25/17 08:10 BP 135/78 11/25/17 08:10 Pulse Ox 97 11/25/17 08:10 Intake & Output 11/24/17 11/25/17 11/25/17 18:59 06:59 18:59 Intake Total 1200 1110 530 Output Total 800 1030 100 Balance 400 80 430 Weight 81.1 kg Intake: Intake, IV Titration 960 960 480 Amount Dextrose 5%-0.45% NaCl 1, 960 960 480 000 ml @ 120 mls/hr IV . Q8H20M [facility] Rx#:[id number] Oral 240 150 50 Output: Urine 800 1030 100 Other: Voiding Method Urinal Toilet Toilet Urinal Urinal # Voids 3 1 - Constitutional General appearance: Present: cooperative, no acute distress - EENT Eyes: Present: PERRLA ENT: Present: hearing grossly normal - Neck Neck: Present: normal ROM - Respiratory Details: No difficulty with respiration - Gastrointestinal Gastrointestinal Comment(s): Soft, nontender, nondistended, no rebound, no guarding - Musculoskeletal Musculoskeletal: Present: generalized weakness - Psychiatric Psychiatric: Present: A&O x's 3 - Labs CBC & Chem 7: 11/25/17 05:31 11/25/17 05:31 Labs: Abnormal Lab Results - Last 24 Hours (Table) 11/25/17 11/25/17 Range/Units 05:31 05:31 RBC 4.18 L (4.30-5.90) m/uL Hgb 12.3 L (13.0-17.5) gm/dL Hct 36.9 L (39.0-53.0) % Lymphocytes # 0.7 L (1.0-4.8) k/uL Potassium 3.4 L (3.5-5.1) mmol/L Chloride 108 H (98-107) mmol/L BUN 5 L (9-20) mg/dL Glucose 125 H (74-99) mg/dL Assessment and Plan (1) Cholelithiasis Narrative/Plan: Will evaluate ERCP, now tomorrow. If choledocholithiasis, I did discuss a possible laparoscopic cholecystectomy with the patient. The patient still prefers having this done as an outpatient. We will discuss further after ERCP is completed. Current Visit: Yes Status: Acute Code(s): K80.20 - CALCULUS OF GALLBLADDER W /O CHOLECYSTITIS W/O OBSTRUCTION SNOMED Code(s): 614649873 (2) Elevated liver enzymes Narrative/Plan: Plan to follow after ERCP is completed. Continue medical management until that point. Agree with cardiology recommendations. Current Visit: Yes Status: Acute Code(s): R74.8 - ABNORMAL LEVELS OF OTHER SERUM ENZYMES SNOMED Code(s): 279869145
--- NOTE | 2017-11-25 14:36 | P.PN ---
Subjective Progress Note Date: 11/25/17 Principal diagnosis: Abdominal pain choledocholithiasis Seen around 0830 this morning. 87-year-old male admitted with abdominal pain elevated liver function tests with underlying cholelithiasis. MRCP reported, filling defect common bile duct felt to reflect underlying calculus or polyp. No liver chemistries to review today. Patient developed A. fib with RVR 2 days ago according to telemetry room rate this morning still between 120 as high as 150 when ambulating therefore ERCP was cancelled today. Denies chest pain shortness of breath. Afebrile. Objective - Vital Signs Vital signs: Vital Signs Temp 97.4 F L 11/25/17 08:10 Pulse 120 H 11/25/17 08:10 Resp 16 11/25/17 08:10 BP 135/78 11/25/17 08:10 Pulse Ox 97 11/25/17 08:10 Intake & Output 11/24/17 11/25/17 11/25/17 18:59 06:59 18:59 Intake Total 1200 1110 530 Output Total 800 1030 100 Balance 400 80 430 Weight 81.1 kg Intake: Intake, IV Titration 960 960 480 Amount Dextrose 5%-0.45% NaCl 1, 960 960 480 000 ml @ 120 mls/hr IV . Q8H20M [facility] Rx#:[id number] Oral 240 150 50 Output: Urine 800 1030 100 Other: Voiding Method Urinal Toilet Toilet Urinal Urinal # Voids 3 1 - Exam General appearance: The patient is alert, oriented, in no acute distress. HET: Head is normocephalic and atraumatic. Pupils are equal and reactive. Oropharynx is clear without lesions. Neck: Supple without lymphadenopathy. Trachea midline. Heart: S1 S2. Irregular. Lungs: No crackles or wheezes are heard. Abdomen: Soft, nontender, nondistended with bowel sounds. No peritoneal signs. No palpable organomegaly or masses. Extremities: Normal skin color and turgor. No cyanosis, rash, ulceration, clubbing, or edema. Radial and pedal pulses are 2/4 bilaterally. Neurological: No focal deficits. Strength and sensation are grossly intact. - Labs CBC & Chem 7: 11/25/17 05:31 11/25/17 05:31 Labs: Abnormal Lab Results - Last 24 Hours (Table) 11/25/17 11/25/17 Range/Units 05:31 05:31 RBC 4.18 L (4.30-5.90) m/uL Hgb 12.3 L (13.0-17.5) gm/dL Hct 36.9 L (39.0-53.0) % Lymphocytes # 0.7 L (1.0-4.8) k/uL Potassium 3.4 L (3.5-5.1) mmol/L Chloride 108 H (98-107) mmol/L BUN 5 L (9-20) mg/dL Glucose 125 H (74-99) mg/dL Assessment and Plan (1) Abdominal pain Narrative/Plan: Acute upper abdominal pain nausea vomiting with elevated liver enzymes and radiographic imaging reporting cholelithiasis possible choledocholithiasis possible polyp with improvement in liver function tests. Current Visit: Yes Status: Acute Code(s): R10.9 - UNSPECIFIED ABDOMINAL PAIN SNOMED Code(s): 31781388 (2) Jaundice Current Visit: Yes Status: Acute Code(s): R17 - UNSPECIFIED JAUNDICE SNOMED Code(s): 92839708 (3) Cholelithiasis Current Visit: Yes Status: Acute Code(s): K80.20 - CALCULUS OF GALLBLADDER W /O CHOLECYSTITIS W/O OBSTRUCTION SNOMED Code(s): 310337209 (4) Elevated liver enzymes Current Visit: Yes Status: Acute Code(s): R74.8 - ABNORMAL LEVELS OF OTHER SERUM ENZYMES SNOMED Code(s): 423920354 (5) Atrial fibrillation with RVR Narrative/Plan: New-onset Current Visit: Yes Status: Acute Code(s): I48.91 - UNSPECIFIED ATRIAL FIBRILLATION SNOMED Code(s): 518685935975104 Plan: 1. ERCP reschedule for tomorrow am pending improvement in heart rate. CMP in am. Healthy heart diet today. Nothing by mouth after midnight. Patient was updated with plan a care. All questions were answered to his satisfaction. Assessment and plan a care discussed with Dr. Mcmahan
[2017-11-25] MEDS: METOPROLOL TARTRATE 50 MG TAB PO SCH ×2 (15:09→20:37)
--- NOTE | 2017-11-25 16:12 | P.PN ---
Subjective Progress Note Date: 11/25/17 This is an 87-year-old gentleman patient of Dr. Perla. 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 Pain has been there for the past 1-1/2 weeks , with diminished appetite no fried fatty food intolerance, patient has pain across the subcostal area bilaterally left upper quadrant and right upper quadrant area, patient did not seek any consultation for this at all, and subsequently was seen in emergency room for evaluation. Patient was noted to be jaundice, with elevated liver function tests and alkaline phosphatase Total bili was 4.4, AST 222, ALT of 252, alkaline phosphatase 248 on the ER labs. Patient denies any fever no chills no hepato-masses, no melena, hematochezia, patient denies any alcohol intake, Emergency room, ultrasound shows multiple fundal gallstones with mildly thickened gallbladder wall, common bile duct is within normal limits 0.4 centimeter, hepatic steatosis noted patient was admitted with consultations to Dr. Peck, gastrology on my evaluation. Patient was noted to be in atrial fibrillation with rapid ventricular rate, additional atenolol 25 mg was given this morning, however patient goes into the 150s with ambulation, patient was transferred to medical floor with [facility] drip and consultation to cardiology patient is on aspirin only for anticoagulation, patient is not on any other blood thinners 11/24: Patient's heart rate remains at 115. Patient received a one-time dose of metoprolol 25 mg oral and has been on 25 mg daily. TSH is 7.3 and levothyroxine increased 137 g. Liver function tests are improving. Dr. Peck is planning for ERCP. 11/25: The patient is also followed by Dr. Boone. Patient is scheduled for ERCP today but then this was rescheduled. Cardiology has changed his extended release metoprolol to Lopressor 50 mg 3 times daily. Heart rate has been running between 99 and 120 Potassium will be replaced. Objective - Vital Signs Vital signs: Vital Signs Temp 97.4 F L 11/25/17 08:10 Pulse 120 H 11/25/17 08:10 Resp 16 11/25/17 08:10 BP 135/78 11/25/17 08:10 Pulse Ox 97 11/25/17 08:10 Intake & Output 11/24/17 11/25/17 11/25/17 18:59 06:59 18:59 Intake Total 1200 1110 530 Output Total 800 1030 100 Balance 400 80 430 Weight 81.1 kg Intake: Intake, IV Titration 960 960 480 Amount Dextrose 5%-0.45% NaCl 1, 960 960 480 000 ml @ 120 mls/hr IV . Q8H20M [facility] Rx#:[id number] Oral 240 150 50 Output: Urine 800 1030 100 Other: Voiding Method Urinal Toilet Urinal # Voids 3 1 - Exam General appearance: cooperative, no acute distress - EENT Eyes: anicteric sclerae, EOMI, PERRLA, dentition normal, normal appearance ENT: hearing grossly normal, normal oropharynx - Neck Neck: normal ROM - Respiratory Respiratory: bilateral: CTA, negative: diminished, dullness, rales, rhonchi - Cardiovascular Rhythm: regular Heart sounds: normal: S1, S2 Abnormal Heart Sounds: no systolic murmur, no diastolic murmur, no rub, no S3 Gallop, no S4 Gallop, no click, no other - Gastrointestinal General gastrointestinal: normal bowel sounds, soft - Integumentary Integumentary: normal - Neurologic Neurologic: CNII-XII intact - Musculoskeletal Musculoskeletal: gait normal, strength equal bilaterally - Psychiatric Psychiatric: A&O x's 3, appropriate affect, intact judgment & insight - Labs CBC & Chem 7: 11/25/17 05:31 11/25/17 05:31 Labs: Abnormal Lab Results - Last 24 Hours (Table) 11/25/17 11/25/17 Range/Units 05:31 05:31 RBC 4.18 L (4.30-5.90) m/uL Hgb 12.3 L (13.0-17.5) gm/dL Hct 36.9 L (39.0-53.0) % Lymphocytes # 0.7 L (1.0-4.8) k/uL Potassium 3.4 L (3.5-5.1) mmol/L Chloride 108 H (98-107) mmol/L BUN 5 L (9-20) mg/dL Glucose 125 H (74-99) mg/dL Assessment and Plan Plan: 1. Jaundice associated with abdominal pain, gallbladder ultrasound showing gallbladder stones with no common bile duct dilatation, MRCP is requested by gastrology, consult were made with their service with ERCP. 2. Cholelithiasis with chronic cholecystitis, with possibility off choledocholithiasis, MRCP to be done November 23, ERCP in the morning, heparin is not provided for the atrial fibrillation with the anticipated procedure tomorrow 3. Atrial fibrillation chronic with rapid ventricular rate, patient was transferred from medical floor as he did not respond atenolol 50 mg and he was transferred to telemetry in 6 floor. Patient would need long-term anticoagulation with Coumadin or factor X a inhibitors unless contraindicated. Patient is currently on metoprolol 50 mg 3 times daily. 4. Acute obstructive jaundice, monitor for common bile duct stones, monitor liver function test, MRCP, ERCP to be rescheduled 4. Asthma, mild intermittent, history without any exacerbation, on Singulair 6. History of melanoma left cheek, unknown activity 7. Hyperlipidemia, not on statins on hold secondary to elevated liver function tests 8. Hypothyroidism on levothyroxine 125 daily next 9. CAD on Imdur 60 mg daily Lipitor is held secondary to elevated liver function tests, metoprolol is increased to 50 mg daily secondary to A. fib RVR, 10. BPH on Cardura Proscar no changes made 11. GERD on maintenance Pepcid 20 mg daily and Zantac 150 milligram at bedtime 12. GI prophylaxis on maintenanc PPI DVT prophylaxis, heparin IV or factor X a inhibitors will be given after procedure, otherwise JESSIE hose and early ambulation Discharge plan: Return home at [facility] Impression and plan of care have been directed as dictated by the signing physician. Jaclyn Trammell nurse practitioner acting as scribe for signing physician.
[2017-11-25] MEDS: FAMOTIDINE 20 MG TAB PO SCH (20:37)
[2017-11-26] MEDS: DEXTROSE 5%-0.45% NACL 1,000 ML IV SCH (05:03)
[2017-11-26] MEDS: LEVOTHYROXINE 137 MCG TAB PO SCH (05:59)
[2017-11-26] MEDS: PANTOPRAZOLE 40 MG TABLET PO SCH (05:59)
[2017-11-26] MEDS ORDERED: LEVOFLOXACIN 500MG-D5W PMX 500 MG in DEXTROSE/WATER 1 100ML.BAG IVPB ONE (06:00)
[2017-11-26] MEDS ORDERED: INDOMETHACIN 50MG SUPPOSITORY RECTAL ONE (06:00)
[2017-11-26 06:01] LABS: Basophils % (A) 1 %; Eosinophils # (A) 0.3 k/uL (0-0.7); Eosinophils % (A) 5 %; HCT 37.9 % (39.0-53.0); HGB 12.6 gm/dL (13.0-17.5); Lymphocytes # (A) 0.9 k/uL (1.0-4.8); Lymphocytes % (A) 14 %; MCH 29.6 pg (25.0-35.0); MCHC 33.2 g/dL (31.0-37.0); MCV 89.2 fL (80.0-100.0); Mean Platelet Volume 7.3; Monocytes # (A) 0.4 k/uL (0-1.0); Monocytes % (A) 6 %; Neutrophils # (A) 4.6 k/uL (1.3-7.7); Neutrophils % (A) 72 %; Platelet Count 327 k/uL (150-450); RBC 4.25 m/uL (4.30-5.90); RDW 13.1 % (11.5-15.5); WBC 6.4 k/uL (3.8-10.6)
[2017-11-26 06:14] LABS: ALT 137 U/L (21-72); AST 53 U/L (17-59); Albumin 3.2 g/dL (3.5-5.0); Alkaline Phosphatase 181 U/L (38-126); Anion Gap 10 mmol/L; Blood Urea Nitrogen 8 mg/dL (9-20); Calcium 8.9 mg/dL (8.4-10.2); Carbon Dioxide 23 mmol/L (22-30); Chloride 108 mmol/L (98-107); Glucose 104 mg/dL (74-99); Potassium 4.2 mmol/L (3.5-5.1); Sodium 141 mmol/L (137-145); Total Bilirubin 1.7 mg/dL (0.2-1.3); Total Protein 5.9 g/dL (6.3-8.2)
[2017-11-26] MEDS ORDERED: IV FLUID CONTINUATION 1,000 ML IV ONE (07:12)
--- NOTE | 2017-11-26 08:25 | PN ---
PROGRESS NOTE DATE OF SERVICE: 11/26/2017. HISTORY: Patient is an 87-year-old pleasant white male who was admitted to the hospital with abdominal pain, nausea, vomiting. He was noted to have elevated LFTs. Subsequently, he had an MRCP done that showed evidence of common bile duct stones. The patient in the meantime was noted to have A fib with rapid ventricular heart rate and cardiology has been consulted. He was scheduled for an ERCP today. He was evaluated by anesthesia in the endoscopy suite and patient was noted to have severe tachycardia with a heart rate ranging between . After having consultation with anesthesia, they decided to cancel the procedure because of uncontrolled heart rate. The patient in the meantime denies any symptoms. PHYSICAL EXAMINATION: On physical examination, appears comfortable, no apparent distress. Vital signs are stable. Blood pressure is 128/67, pulse rate was 140 per minute and afebrile. HEENT EXAMINATION: Unremarkable. Conjunctivae are pink. Sclerae anicteric. Oral cavity, no lesions. NECK: No JVD or lymph node enlargement. CHEST: Clear to auscultation. HEART: Regular rate and rhythm, but it was tachycardic. ABDOMEN: Soft. Bowel sounds are positive. EXTREMITIES: No pedal edema SKIN: No rashes. NEURO: Alert and oriented x3. No focal deficits. LABS: Labs from today, T-bili is down to 1.7, AST 53, ALT 137, alkaline phosphatase is 181. IMPRESSION: 1. Intermittent episodes of nausea, vomiting, and abdominal pain related to common bile duct stones, elevated LFTs which are gradually improving. Bilirubin is improved to 1.7. Serum transaminases have almost normalized. MRCP did show common bile duct stones. 2. Atrial fibrillation with rapid ventricular heart rate, which has been uncontrolled. Cardiology is following the patient closely. RECOMMENDATIONS: I had a lengthy discussion with the patient as well as the family at the bedside. Because of the uncontrolled heart rate as per anesthesia, the procedure has been canceled today. I had a long discussion with them about further management. At this time, we will try to control the heart rate and discuss this with Cardiology today and we will plan on performing ERCP possibly on Wednesday once his heart rate is well controlled. Family is understanding and agreeable with the plan. He will be transferred back to the floor. Thank you for this consultation. MMODL / IJN: [id number] /
[2017-11-26] MEDS: FINASTERIDE 5 MG TAB PO SCH (08:48)
[2017-11-26] MEDS: ISOSORBIDE MONONITRATE ER 60 MG TAB.ER.24H PO SCH (08:48)
[2017-11-26] MEDS: MONTELUKAST 10 MG TAB PO SCH (08:48)
[2017-11-26] MEDS: METOPROLOL TARTRATE 50 MG TAB PO SCH (08:48)
[2017-11-26] MEDS: DOXAZOSIN 4 MG TAB PO SCH (08:48)
--- NOTE | 2017-11-26 10:56 | P.PN ---
Progress Note - Text Atrial fibrillation rates not controlled. Cardizem not available. We'll start IV metoprolol 5 mg every 4 hours to be held only if his blood pressure systolic is below 90 mmHg. On Wednesday prior to the procedure he should get a dose of about 5:00 in the morning and another dose of IV metoprolol just before heading for the endoscopy suite
--- NOTE | 2017-11-26 11:40 | P.PN ---
Subjective Progress Note Date: 11/26/17 This is an 87-year-old male patient who presented to the hospital with jaundice and associated abdominal discomfort. No chest discomfort or dizziness, no lightheadedness or palpitations. Patient was found to be in atrial fibrillation with a rapid ventricular response. Past medical history is consistent for asthma, hyperlipidemia, hypertension, enlarged prostate, and hypothyroidism. He also has a prior history of smoking. Ultrasound was performed which revealed multiple gallstones with mildly thickened gallbladder wall. Consultation in progress with Dr. Mcmahan. ERCP was initially scheduled to be firm today but because of elevated heart rate this was detained. We increased the dose of beta immanuel to a 3 times a day dose today for more optimal heart rate control. 11/26/2017 Patient did go down for ERCP this morning, apparently once the patient was rolled over onto the table a heart rate went up into the 140-160 range. For this reason, again the procedure was canceled and the patient was returned back to the unit. On return to the unit, the heart rate was in the 110 range. He was on oral beta immanuel, however the beta immanuel had been held prior to the procedure this morning. We will discontinue the oral metoprolol, and change patient over to metoprolol 5 mg IV every 4 hours. We will also give an additional dose just prior to the patient going for his procedure which is now scheduled for Wednesday. Potassium today is 4.2, TSH is 7.3 and free T4 is 1.83. Objective - Vital Signs Vital signs: Vital Signs Temp 97.1 F L 11/26/17 08:00 Pulse 93 11/26/17 08:00 Resp 16 11/26/17 08:00 BP 139/85 11/26/17 08:00 Pulse Ox 97 11/26/17 08:00 Intake & Output 11/25/17 11/26/17 11/26/17 18:59 06:59 18:59 Intake Total 1970 250 360 Output Total 100 425 Balance 1870 -175 360 Weight 81.1 kg Intake: Intake, IV Titration 1440 250 Amount Dextrose 5%-0.45% NaCl 1, 1440 000 ml @ 120 mls/hr IV . Q8H20M [facility] Rx#:[id number] Dextrose 5%-0.45% NaCl 1, 50 000 ml @ 50 mls/hr IV . Q20H [facility] Rx#:[id number] Levofloxacin 500Mg-D5w 200 Pmx 500 mg In Dextrose/ Water 1 100ml.bag @ 100 mls/hr IVPB ONCE ONE Rx#: [id number] Oral 530 360 Output: Urine 100 425 Other: Voiding Method Toilet Toilet Urinal Urinal # Voids 2 - Exam PHYSICAL EXAMINATION: HEENT: Head is atraumatic, normocephalic. Pupils equal, round. Neck is supple. There is no elevated jugular venous pressure. HEART EXAMINATION: Heart S1 and S2 irregularly irregular CHEST EXAMINATION: Lungs are clear to auscultation and precussion. No chest wall tenderness is noted on palpation or with deep breathing. ABDOMEN: Soft, generalized tenderness . Bowel sounds are heard. No organomegaly noted. EXTREMITIES: 2+ peripheral pulses with no evidence of peripheral edema and no calf tenderness noted. NEUROLOGIC patient is awake, alert and oriented -3. . - Labs CBC & Chem 7: 11/26/17 05:46 11/26/17 05:46 Labs: Abnormal Lab Results - Last 24 Hours (Table) 11/26/17 11/26/17 Range/Units 05:46 05:46 RBC 4.25 L (4.30-5.90) m/uL Hgb 12.6 L (13.0-17.5) gm/dL Hct 37.9 L (39.0-53.0) % Lymphocytes # 0.9 L (1.0-4.8) k/uL Chloride 108 H (98-107) mmol/L BUN 8 L (9-20) mg/dL Glucose 104 H (74-99) mg/dL Total Bilirubin 1.7 H (0.2-1.3) mg/dL ALT 137 H (21-72) U/L Alkaline Phosphatase 181 H (38-126) U/L Total Protein 5.9 L (6.3-8.2) g/dL Albumin 3.2 L (3.5-5.0) g/dL Assessment and Plan Plan: Assessment and plan 1. Jaundice associated with abdominal pain, gallbladder ultrasound showing gallbladder stones with no common bile duct dilatation, ERCP is requested by gastrology. 2. Cholelithiasis with chronic cholecystitis, with possibility off choledocholithiasis, MRCP to be done November 23, ERCP in the morning 3. Atrial fibrillation chronic with rapid ventricular rate 4. Acute obstructive jaundice, monitor for common bile duct stones, monitor liver function test, MRCP as mentioned, hepatitis panel screen is negative 4. Asthma history without any exacerbation 6. History of melanoma left cheek 7. Hyperlipidemia 8. Hypothyroidism 9. CAD 10. BPH 11. GERD Plan We will continue to hold anticoagulation for ERCP, discontinue oral beta immanuel and start the patient on Lopressor 5 mg IV every 4 hourly. We will also give an juvenile court liaison dose of 5 mg IV prior to the ERCP. ERCP now is scheduled for Wednesday. DNP note has been reviewed, I agree with a documented findings and plan of care. Patient was seen and examined.
[2017-11-26] MEDS: METOPROLOL TARTRATE 5 MG/5 ML VIAL IVP SCH ×3 (12:07→21:34)
--- NOTE | 2017-11-26 15:53 | P.PN ---
Subjective Progress Note Date: 11/26/17 This is an 87-year-old gentleman patient of Dr. Perla. 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 Pain has been there for the past 1-1/2 weeks , with diminished appetite no fried fatty food intolerance, patient has pain across the subcostal area bilaterally left upper quadrant and right upper quadrant area, patient did not seek any consultation for this at all, and subsequently was seen in emergency room for evaluation. Patient was noted to be jaundice, with elevated liver function tests and alkaline phosphatase Total bili was 4.4, AST 222, ALT of 252, alkaline phosphatase 248 on the ER labs. Patient denies any fever no chills no hepato-masses, no melena, hematochezia, patient denies any alcohol intake, Emergency room, ultrasound shows multiple fundal gallstones with mildly thickened gallbladder wall, common bile duct is within normal limits 0.4 centimeter, hepatic steatosis noted patient was admitted with consultations to Dr. Peck, gastrology on my evaluation. Patient was noted to be in atrial fibrillation with rapid ventricular rate, additional atenolol 25 mg was given this morning, however patient goes into the 150s with ambulation, patient was transferred to medical floor with [facility] drip and consultation to cardiology patient is on aspirin only for anticoagulation, patient is not on any other blood thinners 11/24: Patient's heart rate remains at 115. Patient received a one-time dose of metoprolol 25 mg oral and has been on 25 mg daily. TSH is 7.3 and levothyroxine increased 137 g. Liver function tests are improving. Dr. Peck is planning for ERCP. 11/25: The patient is also followed by Dr. Boone. Patient is scheduled for ERCP today but then this was rescheduled. Cardiology has changed his extended release metoprolol to Lopressor 50 mg 3 times daily. Heart rate has been running between 99 and 120 Potassium will be replaced. 11/26: Patient is alert episode of A. fib with RVR in the 120s and 1 teens and ERCP scheduled for today has been canceled by anesthesia. Dr. Jefry wilkinson ordered IV Lasix 5 mg every 4 hours and hold for systolic blood pressure less than 90. On Wednesday when he is rescheduled for ERCP, patient is to have a dose of 5 AM and another prior to procedure. Heart rate is now 93-100. We will add in physical therapy for possible need for subacute rehab. Liver function tests are improving from previous with total bilirubin 1.7, ALT 137 alkaline phosphatase 181. Objective - Vital Signs Vital signs: Vital Signs Temp 97.1 F L 11/26/17 08:00 Pulse 93 11/26/17 08:00 Resp 16 11/26/17 08:00 BP 139/85 11/26/17 08:00 Pulse Ox 97 11/26/17 08:00 Intake & Output 11/25/17 11/26/17 11/26/17 18:59 06:59 18:59 Intake Total 1970 250 360 Output Total 100 425 Balance 1870 -175 360 Weight 81.1 kg Intake: Intake, IV Titration 1440 250 Amount Dextrose 5%-0.45% NaCl 1, 1440 000 ml @ 120 mls/hr IV . Q8H20M [facility] Rx#:[id number] Dextrose 5%-0.45% NaCl 1, 50 000 ml @ 50 mls/hr IV . Q20H [facility] Rx#:[id number] Levofloxacin 500Mg-D5w 200 Pmx 500 mg In Dextrose/ Water 1 100ml.bag @ 100 mls/hr IVPB ONCE ONE Rx#: [id number] Oral 530 360 Output: Urine 100 425 Other: Voiding Method Toilet Toilet Urinal Urinal # Voids 2 - Exam General appearance: cooperative, no acute distress - EENT Eyes: anicteric sclerae, EOMI, PERRLA, dentition normal, normal appearance ENT: hearing grossly normal, normal oropharynx - Neck Neck: normal ROM - Respiratory Respiratory: bilateral: CTA, negative: diminished, dullness, rales, rhonchi - Cardiovascular Rhythm: regular Heart sounds: normal: S1, S2 Abnormal Heart Sounds: no systolic murmur, no diastolic murmur, no rub, no S3 Gallop, no S4 Gallop, no click, no other - Gastrointestinal General gastrointestinal: normal bowel sounds, soft - Integumentary Integumentary: normal - Neurologic Neurologic: CNII-XII intact - Musculoskeletal Musculoskeletal: gait normal, strength equal bilaterally - Psychiatric Psychiatric: A&O x's 3, appropriate affect, intact judgment & insight - Labs CBC & Chem 7: 11/26/17 05:46 11/26/17 05:46 Labs: Abnormal Lab Results - Last 24 Hours (Table) 11/26/17 11/26/17 Range/Units 05:46 05:46 RBC 4.25 L (4.30-5.90) m/uL Hgb 12.6 L (13.0-17.5) gm/dL Hct 37.9 L (39.0-53.0) % Lymphocytes # 0.9 L (1.0-4.8) k/uL Chloride 108 H (98-107) mmol/L BUN 8 L (9-20) mg/dL Glucose 104 H (74-99) mg/dL Total Bilirubin 1.7 H (0.2-1.3) mg/dL ALT 137 H (21-72) U/L Alkaline Phosphatase 181 H (38-126) U/L Total Protein 5.9 L (6.3-8.2) g/dL Albumin 3.2 L (3.5-5.0) g/dL Assessment and Plan Plan: 1. Jaundice associated with abdominal pain, gallbladder ultrasound showing gallbladder stones with no common bile duct dilatation, MRCP is requested by gastrology, consult were made with their service with ERCP. possible cholecystitis to ct as an outpatient with Dr. Boone. 2. Cholelithiasis with chronic cholecystitis, with possibility off choledocholithiasis, MRCP to be done November 23, ERCP in the morning, heparin is not provided for the atrial fibrillation with the anticipated procedure tomorrow 3. Atrial fibrillation chronic with rapid ventricular rate, with recurrent episodes patient was transferred from medical floor as he did not respond atenolol 50 mg and he was transferred to telemetry in 6 floor. Patient would need long-term anticoagulation with Coumadin or factor X a inhibitors unless contraindicated. Patient is currently on metoprolol 50 mg 3 times daily. 4. Acute obstructive jaundice, monitor for common bile duct stones, monitor liver function test, MRCP, ERCP to be rescheduled 4. Asthma, mild intermittent, history without any exacerbation, on Singulair 6. History of melanoma left cheek, unknown activity 7. Hyperlipidemia, not on statins on hold secondary to elevated liver function tests 8. Hypothyroidism on levothyroxine 125 daily next 9. CAD on Imdur 60 mg daily Lipitor is held secondary to elevated liver function tests, metoprolol is increased to 50 mg daily secondary to A. fib RVR, 10. BPH on Cardura Proscar no changes made 11. GERD on maintenance Pepcid 20 mg daily and Zantac 150 milligram at bedtime 12. GI prophylaxis on maintenanc PPI DVT prophylaxis, heparin IV or factor X a inhibitors will be given after procedure, otherwise JESSIE hose and early ambulation Discharge plan: Return home at [facility], patient may benefit from subacute rehab Impression and plan of care have been directed as dictated by the signing physician. Jaclyn Trammell nurse practitioner acting as scribe for signing physician.
[2017-11-26] MEDS: FAMOTIDINE 20 MG TAB PO SCH (21:27)
[2017-11-27] MEDS: METOPROLOL TARTRATE 5 MG/5 ML VIAL IVP SCH ×3 (00:37→09:11)
[2017-11-27] MEDS: DEXTROSE 5%-0.45% NACL 1,000 ML IV SCH (04:23)
[2017-11-27 06:15] LABS: ALT 139 U/L (21-72); AST 81 U/L (17-59); Albumin 2.9 g/dL (3.5-5.0); Alkaline Phosphatase 277 U/L (38-126); Anion Gap 7 mmol/L; Blood Urea Nitrogen 8 mg/dL (9-20); Calcium 8.8 mg/dL (8.4-10.2); Carbon Dioxide 26 mmol/L (22-30); Chloride 108 mmol/L (98-107); Glucose 103 mg/dL (74-99); Sodium 141 mmol/L (137-145); Total Bilirubin 1.5 mg/dL (0.2-1.3); Total Protein 5.4 g/dL (6.3-8.2)
[2017-11-27] MEDS: PANTOPRAZOLE 40 MG TABLET PO SCH (06:20)
[2017-11-27] MEDS: LEVOTHYROXINE 137 MCG TAB PO SCH (06:20)
[2017-11-27] MEDS: ISOSORBIDE MONONITRATE ER 60 MG TAB.ER.24H PO SCH (09:12)
[2017-11-27] MEDS: MONTELUKAST 10 MG TAB PO SCH (09:12)
[2017-11-27] MEDS: FINASTERIDE 5 MG TAB PO SCH (09:12)
[2017-11-27] MEDS: DOXAZOSIN 4 MG TAB PO SCH (09:12)
--- NOTE | 2017-11-27 11:20 | P.PN ---
Subjective Progress Note Date: 11/27/17 Principal diagnosis: Elevated liver enzymes and vomiting Patient continued to be hemodynamically stable overnight no major events reported by nursing staff patient is denying chest pain, shortness breath, nausea, vomiting, abdominal pain, dizziness, lightheadedness or blurry vision Objective - Vital Signs Vital signs: Vital Signs Temp 98 F 11/27/17 04:00 Pulse 115 H 11/27/17 04:00 Resp 16 11/27/17 04:00 BP 149/89 11/27/17 04:00 Pulse Ox 97 11/27/17 04:00 Intake & Output 11/26/17 11/27/17 11/27/17 18:59 06:59 18:59 Intake Total 720 Output Total 850 Balance 720 -850 Weight 79 kg Intake: Oral 720 Output: Urine 850 Other: Voiding Method Toilet Urinal # Voids 2 - Exam Gen.: in stated age, no acute distress Heart: Normal S1-S2 Lungs: Clear to auscultation bilaterally Abdomen: Soft, distended, no tenderness, positive bowel sounds in all 4 quadrant no guarding or rebound Skin: No new rash Psych: Alert and oriented 3 Neuro: No focal deficit - Labs CBC & Chem 7: 11/26/17 05:46 11/27/17 05:34 Labs: Abnormal Lab Results - Last 24 Hours (Table) 11/27/17 Range/Units 05:34 Chloride 108 H (98-107) mmol/L BUN 8 L (9-20) mg/dL Glucose 103 H (74-99) mg/dL Total Bilirubin 1.5 H (0.2-1.3) mg/dL AST 81 H (17-59) U/L ALT 139 H (21-72) U/L Alkaline Phosphatase 277 H (38-126) U/L Total Protein 5.4 L (6.3-8.2) g/dL Albumin 2.9 L (3.5-5.0) g/dL Assessment and Plan Assessment: 1. Elevated liver enzymes with improvement since 11/23/2017. 2. Moderate protein calorie malnutrition. 3. Painless jaundice. 4. Cholelithiasis with chronic cholecystitis. 5. Atrial fibrillation with rapid ventricular response. 6. Mild intermittent asthma. 7. Hypothyroidism. 8. Hyperlipidemia. 9. Benign prostatic hypertrophy. We'll monitor liver function enzymes closely and plan for ERCP on Wednesday and Andreia cystectomy in 2 weeks on outpatient basis. Patient is agreeable to the current treatment plan would continue his cardioprotective medication continue monitoring his vital signs closely and follow up with GI recommendation regarding discharge planning. We'll have physical and neck patient no therapy evaluated the patient prior to discharge
--- NOTE | 2017-11-27 11:42 | P.PN ---
Subjective Progress Note Date: 11/27/17 This is an 87-year-old male patient who presented to the hospital with jaundice and associated abdominal discomfort. No chest discomfort or dizziness, no lightheadedness or palpitations. Patient was found to be in atrial fibrillation with a rapid ventricular response. Past medical history is consistent for asthma, hyperlipidemia, hypertension, enlarged prostate, and hypothyroidism. He also has a prior history of smoking. Ultrasound was performed which revealed multiple gallstones with mildly thickened gallbladder wall. Consultation in progress with Dr. Mcmahan. ERCP was initially scheduled to be firm today but because of elevated heart rate this was detained. We increased the dose of beta immanuel to a 3 times a day dose today for more optimal heart rate control. 11/26/2017 Patient did go down for ERCP this morning, apparently once the patient was rolled over onto the table a heart rate went up into the 140-160 range. For this reason, again the procedure was canceled and the patient was returned back to the unit. On return to the unit, the heart rate was in the 110 range. He was on oral beta immanuel, however the beta immanuel had been held prior to the procedure this morning. We will discontinue the oral metoprolol, and change patient over to metoprolol 5 mg IV every 4 hours. We will also give an additional dose just prior to the patient going for his procedure which is now scheduled for Wednesday. Potassium today is 4.2, TSH is 7.3 and free T4 is 1.83. 11/27/2017 Patient was seen and examined this morning, feels well, no complaints, after getting up to the bathroom this morning, his heart rate did go up into the 10/03 range. We will add some oral Cardizem to his medication regime. We will also reinitiate some oral beta immanuel. Plan is to proceed with ERCP on Wednesday. Objective - Vital Signs Vital signs: Vital Signs Temp 98 F 11/27/17 04:00 Pulse 115 H 11/27/17 04:00 Resp 16 11/27/17 04:00 BP 149/89 11/27/17 04:00 Pulse Ox 97 11/27/17 04:00 Intake & Output 11/26/17 11/27/17 11/27/17 18:59 06:59 18:59 Intake Total 720 Output Total 850 Balance 720 -850 Weight 79 kg Intake: Oral 720 Output: Urine 850 Other: Voiding Method Toilet Urinal # Voids 2 - Exam PHYSICAL EXAMINATION: HEENT: Head is atraumatic, normocephalic. Pupils equal, round. Neck is supple. There is no elevated jugular venous pressure. HEART EXAMINATION: Heart S1 and S2 irregularly irregular CHEST EXAMINATION: Lungs are clear to auscultation and precussion. No chest wall tenderness is noted on palpation or with deep breathing. ABDOMEN: Soft, generalized tenderness . Bowel sounds are heard. No organomegaly noted. EXTREMITIES: 2+ peripheral pulses with no evidence of peripheral edema and no calf tenderness noted. NEUROLOGIC patient is awake, alert and oriented -3. . - Labs CBC & Chem 7: 11/26/17 05:46 11/27/17 05:34 Labs: Abnormal Lab Results - Last 24 Hours (Table) 11/27/17 Range/Units 05:34 Chloride 108 H (98-107) mmol/L BUN 8 L (9-20) mg/dL Glucose 103 H (74-99) mg/dL Total Bilirubin 1.5 H (0.2-1.3) mg/dL AST 81 H (17-59) U/L ALT 139 H (21-72) U/L Alkaline Phosphatase 277 H (38-126) U/L Total Protein 5.4 L (6.3-8.2) g/dL Albumin 2.9 L (3.5-5.0) g/dL Assessment and Plan Plan: Assessment and plan 1. Jaundice associated with abdominal pain, gallbladder ultrasound showing gallbladder stones with no common bile duct dilatation, ERCP is requested by gastrology. 2. Cholelithiasis with chronic cholecystitis, with possibility off choledocholithiasis, MRCP to be done November 23, ERCP in the morning 3. Atrial fibrillation chronic with rapid ventricular rate 4. Acute obstructive jaundice, monitor for common bile duct stones, monitor liver function test, MRCP as mentioned, hepatitis panel screen is negative 4. Asthma history without any exacerbation 6. History of melanoma left cheek 7. Hyperlipidemia 8. Hypothyroidism 9. CAD 10. BPH 11. GERD Plan We will continue to hold anticoagulation for ERCP, discontinue IV beta immanuel and start the patient on Toprol-XL 50 daily along with Cardizem 30 by mouth 3 times a day. We will also give an holistic health practitioner dose of 5 mg IV prior to the ERCP. ERCP now is scheduled for Wednesday. DNP note has been reviewed, I agree with a documented findings and plan of care. Patient was seen and examined.
[2017-11-27] MEDS: METOPROLOL SUCCINATE (ER) 50 MG TAB.ER.24H PO SCH (14:09)
[2017-11-27] MEDS: DILTIAZEM ORAL 30 MG TAB PO SCH ×3 (14:09→22:21)
[2017-11-27] MEDS: FAMOTIDINE 20 MG TAB PO SCH (22:21)
[2017-11-28] MEDS: PANTOPRAZOLE 40 MG TABLET PO SCH (06:28)
[2017-11-28] MEDS: LEVOTHYROXINE 137 MCG TAB PO SCH ×2 (06:28→08:35)
[2017-11-28] MEDS: ISOSORBIDE MONONITRATE ER 60 MG TAB.ER.24H PO SCH (08:33)
[2017-11-28] MEDS: FINASTERIDE 5 MG TAB PO SCH (08:33)
[2017-11-28] MEDS: DOXAZOSIN 4 MG TAB PO SCH (08:33)
[2017-11-28] MEDS: DILTIAZEM ORAL 30 MG TAB PO SCH ×3 (08:33→19:27)
[2017-11-28] MEDS: METOPROLOL SUCCINATE (ER) 50 MG TAB.ER.24H PO SCH (08:33)
[2017-11-28] MEDS: MONTELUKAST 10 MG TAB PO SCH (08:33)
--- NOTE | 2017-11-28 10:03 | P.PN ---
Subjective Progress Note Date: 11/28/17 Patient seen and examined at bedside. No complaints at this time. He states he only has occasional right upper quadrant pain. Objective - Vital Signs Vital signs: Vital Signs Temp 97 F L 11/28/17 04:00 Pulse 93 11/28/17 04:00 Resp 16 11/28/17 04:00 BP 127/89 11/28/17 04:00 Pulse Ox 96 11/28/17 04:00 Intake & Output 11/27/17 11/28/17 11/28/17 18:59 06:59 18:59 Intake Total 1410 360 Output Total 250 Balance 1410 110 Weight 80.1 kg Intake: Intake, IV Titration 400 Amount Dextrose 5%-0.45% NaCl 1, 400 000 ml @ 50 mls/hr IV . Q20H [facility] Rx#:[id number] Oral 1010 360 Output: Urine 250 Other: Voiding Method Toilet Toilet Urinal Urinal # Voids 1 # Bowel Movements 2 - Constitutional General appearance: Present: cooperative, no acute distress - EENT Eyes: Present: PERRLA ENT: Present: hearing grossly normal - Respiratory Details: No difficulty with respiration - Gastrointestinal Gastrointestinal Comment(s): Soft, nontender, nondistended, no rebound, no guarding - Musculoskeletal Musculoskeletal: Present: generalized weakness - Psychiatric Psychiatric: Present: A&O x's 3 - Labs CBC & Chem 7: 11/26/17 05:46 11/27/17 05:34 Assessment and Plan (1) Cholelithiasis Current Visit: Yes Status: Acute Code(s): K80.20 - CALCULUS OF GALLBLADDER W /O CHOLECYSTITIS W/O OBSTRUCTION SNOMED Code(s): 732307718 (2) Elevated liver enzymes Current Visit: Yes Status: Acute Code(s): R74.8 - ABNORMAL LEVELS OF OTHER SERUM ENZYMES SNOMED Code(s): 374937002 Plan: Discussed the case in depth with the patient. The plan is for ERCP tomorrow. The patient states that due to his extended inpatient stay that he would prefer to have his gallbladder removed while he was in the hospital. He states that he would be able to do this if he has a senior net programmer for his at home. He would like to discuss this tomorrow after ERCP is completed. I did discuss the case with Dr. Mcmahan (cardiology) and we will plan on holding anticoagulation until decision is made on cholecystectomy.
--- NOTE | 2017-11-28 14:01 | P.PN ---
Subjective Progress Note Date: 11/28/17 Mr. Fischer is seen and examined today in follow-up. He is resting comfortably in bed in no acute distress. He denies symptoms of chest pain, shortness of breath, dizziness, palpitations, diaphoresis. Telemetry tracings reveal atrial fibrillation with intermittent episodes of elevated heart rate. Plan is for ERCP tomorrow with possible cholecystectomy thereafter. Anticoagulation will remain on hold. Blood pressure 127/72 heart rate 110 afebrile maintaining oxygen saturation on room air. Objective - Vital Signs Vital signs: Vital Signs Temp 98.2 F 11/28/17 08:00 Pulse 110 H 11/28/17 08:00 Resp 16 11/28/17 08:00 BP 127/72 11/28/17 08:00 Pulse Ox 98 11/28/17 08:00 Intake & Output 11/27/17 11/28/17 11/28/17 18:59 06:59 18:59 Intake Total 1410 360 240 Output Total 250 Balance 1410 110 240 Weight 80.1 kg Intake: Intake, IV Titration 400 Amount Dextrose 5%-0.45% NaCl 1, 400 000 ml @ 50 mls/hr IV . Q20H [facility] Rx#:[id number] Oral 1010 360 240 Output: Urine 250 Other: Voiding Method Toilet Toilet Urinal Urinal # Voids 1 # Bowel Movements 2 - Exam GENERAL: Well-appearing, well-nourished and in no acute distress. NECK: Supple without JVD or thyromegaly. LUNGS: Breath sounds clear to auscultation bilaterally. Respiration equal and unlabored. No wheezes, rales or rhonchi. HEART: Irregular rate and rhythm without murmurs, rubs or gallops. S1 and S2 heard. EXTREMITIES: Normal range of motion, no edema. No clubbing or cyanosis. Peripheral pulses intact and strong. - Labs CBC & Chem 7: 11/26/17 05:46 11/27/17 05:34 Assessment and Plan Assessment: ASSESSMENT 1. Jaundice associated with abdominal pain, gallbladder ultrasound showing gallbladder stones with no common bile duct dilatation, ERCP is requested by gastrology. 2. Cholelithiasis with chronic cholecystitis, with possibility off choledocholithiasis, MRCP to be done November 23, ERCP in the morning 3. Atrial fibrillation chronic with rapid ventricular rate 4. Acute obstructive jaundice, monitor for common bile duct stones, monitor liver function test, MRCP as mentioned, hepatitis panel screen is negative 4. Asthma history without any exacerbation 6. History of melanoma left cheek 7. Hyperlipidemia 8. Hypothyroidism 9. CAD 10. BPH 11. GERD PLAN In continue Cardizem 30 mg 3 times a day. crease Toprol to 100 mg daily. He is scheduled for an ERCP tomorrow, nothing by mouth after midnight tonight. Continue to hold anticoagulation. The above impression and plan of care have been discussed and directed by the signing physician. Jemima Carrasco, nurse practitioner, acting as scribe for signing physician.
[2017-11-28] MEDS: FAMOTIDINE 20 MG TAB PO SCH (19:27)
--- NOTE | 2017-11-28 20:43 | P.PN ---
Subjective Progress Note Date: 11/28/17 Principal diagnosis: Elevated liver enzymes and vomiting Patient continued to be hemodynamically stable overnight no major events reported by nursing staff patient is denying chest pain, shortness breath, nausea, vomiting, abdominal pain, dizziness, lightheadedness or blurry vision. pt is tolerating diet. Objective - Vital Signs Vital signs: Vital Signs Temp 97.6 F 11/28/17 16:00 Pulse 96 11/28/17 16:00 Resp 16 11/28/17 16:00 BP 126/78 11/28/17 16:00 Pulse Ox 93 L 11/28/17 16:00 Intake & Output 11/28/17 11/28/17 11/29/17 06:59 18:59 06:59 Intake Total 360 960 Output Total 250 Balance 110 960 Weight 80.1 kg Intake: Oral 360 960 Output: Urine 250 Other: Voiding Method Toilet Urinal # Voids 1 # Bowel Movements 0 - Exam Gen.: in stated age, no acute distress Heart: Normal S1-S2 Lungs: Clear to auscultation bilaterally Abdomen: Soft, distended, no tenderness, positive bowel sounds in all 4 quadrant no guarding or rebound Skin: No new rash Psych: Alert and oriented 3 Neuro: No focal deficit - Labs CBC & Chem 7: 11/26/17 05:46 11/27/17 05:34 Assessment and Plan Assessment: 1. Elevated liver enzymes with improvement since 11/23/2017. 2. Moderate protein calorie malnutrition. 3. Painless jaundice. 4. Cholelithiasis with chronic cholecystitis. 5. Atrial fibrillation with rapid ventricular response. 6. Mild intermittent asthma. 7. Hypothyroidism. 8. Hyperlipidemia. 9. Benign prostatic hypertrophy. We'll monitor liver function enzymes closely and plan for ERCP on Wednesday and Coleycystectomy in 2 weeks on outpatient basis. Patient is agreeable to the current treatment plan would continue his cardioprotective medication continue monitoring his vital signs closely and follow up with GI recommendation regarding discharge planning. We'll have physical and neck patient no therapy evaluated the patient prior to discharge. plan discussed with Dr. Hernandez.
--- NOTE | 2017-11-28 21:17 | P.PN ---
Subjective Progress Note Date: 11/27/17 The patient is an 87-year-old male who presented with abdominal pain, nausea, vomiting and abnormal liver enzymes. He was found to have cholelithiasis and suspected choledocholithiasis on imaging studies. ERCP was canceled yesterday because of atrial fibrillation with high ventricular rate. The patient feels improved and is not reporting any more abdominal symptoms. Heart rate is under better control and his medications are being adjusted by cardiology. Objective - Vital Signs Vital signs: Vital Signs Temp 97.1 F L 11/27/17 08:00 Pulse 110 H 11/27/17 12:00 Resp 16 11/27/17 12:00 BP 132/79 11/27/17 08:00 Pulse Ox 95 11/27/17 08:00 Intake & Output 11/26/17 11/27/17 11/27/17 18:59 06:59 18:59 Intake Total 720 360 Output Total 850 Balance 720 -850 360 Weight 79 kg Intake: Oral 720 360 Output: Urine 850 Other: Voiding Method Toilet Toilet Urinal Urinal # Voids 2 - Exam General: Appears stated age, very pleasant in no acute distress Head and neck: Normocephalic and atraumatic, conjunctivae pink and sclerae not icteric, mucous membranes moist and pink. No masses in the neck or tracheal shifts Lungs: Clear to auscultation with no dullness to percussion Heart: Irregular, no abnormal sounds, murmurs, gallops or friction rubs Abdomen: Soft, no masses or organomegalies. No tenderness or guarding. Bowel sounds present Extremities: No clubbing, cyanosis or edema Neurologic: Alert and oriented. Cranial nerves grossly intact. No gross sensory or motor abnormalities - Labs CBC & Chem 7: 11/26/17 05:46 11/27/17 05:34 Labs: Abnormal Lab Results - Last 24 Hours (Table) 11/27/17 Range/Units 05:34 Chloride 108 H (98-107) mmol/L BUN 8 L (9-20) mg/dL Glucose 103 H (74-99) mg/dL Total Bilirubin 1.5 H (0.2-1.3) mg/dL AST 81 H (17-59) U/L ALT 139 H (21-72) U/L Alkaline Phosphatase 277 H (38-126) U/L Total Protein 5.4 L (6.3-8.2) g/dL Albumin 2.9 L (3.5-5.0) g/dL Assessment and Plan Assessment: Cholelithiasis and suspected choledocholithiasis. Plan: We will plan ERCP on Wednesday.
[2017-11-29] MEDS: LEVOTHYROXINE 137 MCG TAB PO SCH (06:01)
[2017-11-29] MEDS: PANTOPRAZOLE 40 MG TABLET PO SCH (06:01)
[2017-11-29 06:12] LABS: Basophils % (A) 1 %; Eosinophils # (A) 0.2 k/uL (0-0.7); Eosinophils % (A) 3 %; HCT 35.2 % (39.0-53.0); HGB 11.4 gm/dL (13.0-17.5); Lymphocytes # (A) 0.7 k/uL (1.0-4.8); Lymphocytes % (A) 13 %; MCH 29.2 pg (25.0-35.0); MCHC 32.4 g/dL (31.0-37.0); MCV 90.1 fL (80.0-100.0); Mean Platelet Volume 7.2; Monocytes # (A) 0.4 k/uL (0-1.0); Monocytes % (A) 7 %; Neutrophils % (A) 75 %; Platelet Count 332 k/uL (150-450); RBC 3.91 m/uL (4.30-5.90); RDW 13.1 % (11.5-15.5); WBC 5.3 k/uL (3.8-10.6)
[2017-11-29 06:20] LABS: Calcium 8.7 mg/dL (8.4-10.2); Potassium 4.3 mmol/L (3.5-5.1); Total Bilirubin 2.4 mg/dL (0.2-1.3); Total Protein 5.5 g/dL (6.3-8.2)
[2017-11-29] MEDS: DILTIAZEM ORAL 30 MG TAB PO SCH ×3 (08:23→21:42)
[2017-11-29] MEDS: METOPROLOL SUCCINATE (ER) 50 MG TAB.ER.24H PO SCH (08:23)
[2017-11-29] MEDS: FINASTERIDE 5 MG TAB PO SCH (08:24)
[2017-11-29] MEDS: MONTELUKAST 10 MG TAB PO SCH (08:24)
[2017-11-29] MEDS: ISOSORBIDE MONONITRATE ER 60 MG TAB.ER.24H PO SCH (08:24)
[2017-11-29] MEDS: DOXAZOSIN 4 MG TAB PO SCH (08:24)
[2017-11-29] MEDS ORDERED: LEVOFLOXACIN 750MG-D5W PMX 750 MG in DEXTROSE/WATER 1 150ML.BAG IVPB STA (09:54)
[2017-11-29] MEDS ORDERED: INDOMETHACIN 50MG SUPPOSITORY RECTAL ONE (09:55)
[2017-11-29] MEDS: SODIUM CHLORIDE 0.9% 1,000 ML IV SCH ×2 (10:04→22:35)
--- NOTE | 2017-11-29 10:16 | P.PN ---
Subjective Progress Note Date: 11/29/17 Patient seen and examined at bedside. No acute events overnight. States abdominal pain is mildly present in the epigastrium and right upper quadrant. LFTs have increased slightly today. Objective - Vital Signs Vital signs: Vital Signs Temp 97.2 F L 11/29/17 08:15 Pulse 102 H 11/29/17 08:15 Resp 16 11/29/17 08:15 BP 119/83 11/29/17 08:15 Pulse Ox 97 11/29/17 08:15 Intake & Output 11/28/17 11/29/17 11/29/17 18:59 06:59 18:59 Intake Total 960 240 Output Total 850 Balance 960 -610 Weight 79.2 kg Intake: Oral 960 240 Output: Urine 850 Other: Voiding Method Toilet Urinal # Voids 1 # Bowel Movements 0 0 - Constitutional General appearance: Present: cooperative, no acute distress - EENT ENT: Present: hearing grossly normal - Respiratory Details: No difficulty with respiration - Gastrointestinal Gastrointestinal Comment(s): Soft, nontender, nondistended, no rebound, no guarding - Psychiatric Psychiatric: Present: A&O x's 3 - Labs CBC & Chem 7: 11/29/17 05:34 11/29/17 05:34 Labs: Abnormal Lab Results - Last 24 Hours (Table) 11/29/17 11/29/17 Range/Units 05:34 05:34 RBC 3.91 L (4.30-5.90) m/uL Hgb 11.4 L (13.0-17.5) gm/dL Hct 35.2 L (39.0-53.0) % Lymphocytes # 0.7 L (1.0-4.8) k/uL Total Bilirubin 2.4 H (0.2-1.3) mg/dL AST 498 H (17-59) U/L ALT 292 H (21-72) U/L Alkaline Phosphatase 391 H (38-126) U/L Total Protein 5.5 L (6.3-8.2) g/dL Albumin 3.0 L (3.5-5.0) g/dL Assessment and Plan (1) Cholelithiasis Narrative/Plan: Plan for ERCP this afternoon. If choledocholithiasis, I did discuss a possible laparoscopic cholecystectomy with the patient. The patient states that he would like cholecystectomy performed while inpatient at this point. He has made plans for a synthetic staple extruder for his at home. We will discuss further after ERCP is completed. Current Visit: Yes Status: Acute Code(s): K80.20 - CALCULUS OF GALLBLADDER W /O CHOLECYSTITIS W/O OBSTRUCTION SNOMED Code(s): 143278754 (2) Elevated liver enzymes Narrative/Plan: Plan to follow after ERCP is completed. Continue medical management until that point. Agree with cardiology recommendations. Hold anticoagulation after ERCP for possible cholecystectomy. Current Visit: Yes Status: Acute Code(s): R74.8 - ABNORMAL LEVELS OF OTHER SERUM ENZYMES SNOMED Code(s): 898433543
--- NOTE | 2017-11-29 11:43 | P.PN ---
Subjective Progress Note Date: 11/29/17 This is an 87-year-old male patient who presented to the hospital with jaundice and associated abdominal discomfort. No chest discomfort or dizziness, no lightheadedness or palpitations. Patient was found to be in atrial fibrillation with a rapid ventricular response. Past medical history is consistent for asthma, hyperlipidemia, hypertension, enlarged prostate, and hypothyroidism. He also has a prior history of smoking. Ultrasound was performed which revealed multiple gallstones with mildly thickened gallbladder wall. Consultation in progress with Dr. Mcmahan. ERCP was initially scheduled to be firm today but because of elevated heart rate this was detained. We increased the dose of beta immanuel to a 3 times a day dose today for more optimal heart rate control. 11/26/2017 Patient did go down for ERCP this morning, apparently once the patient was rolled over onto the table a heart rate went up into the 140-160 range. For this reason, again the procedure was canceled and the patient was returned back to the unit. On return to the unit, the heart rate was in the 110 range. He was on oral beta immanuel, however the beta immanuel had been held prior to the procedure this morning. We will discontinue the oral metoprolol, and change patient over to metoprolol 5 mg IV every 4 hours. We will also give an additional dose just prior to the patient going for his procedure which is now scheduled for Wednesday. Potassium today is 4.2, TSH is 7.3 and free T4 is 1.83. 11/27/2017 Patient was seen and examined this morning, feels well, no complaints, after getting up to the bathroom this morning, his heart rate did go up into the 120- 130 range. We will add some oral Cardizem to his medication regime. We will also reinitiate some oral beta immanuel. Plan is to proceed with ERCP on Wednesday. 11/29/2017 Patient seen and examined this morning, continues to be in atrial fibrillation, heart rate under much better control. In the 70s to 80s this morning. Scheduled for the ERCP today. Objective - Vital Signs Vital signs: Vital Signs Temp 97.2 F L 11/29/17 08:15 Pulse 102 H 11/29/17 08:15 Resp 16 11/29/17 08:15 BP 119/83 11/29/17 08:15 Pulse Ox 97 03/19/18 08:15 Intake & Output 11/28/17 11/29/17 11/29/17 18:59 06:59 18:59 Intake Total 960 240 Output Total 850 Balance 960 -610 Weight 79.2 kg Intake: Oral 960 240 Output: Urine 850 Other: Voiding Method Toilet Toilet Urinal Urinal # Voids 1 # Bowel Movements 0 0 - Exam PHYSICAL EXAMINATION: HEENT: Head is atraumatic, normocephalic. Pupils equal, round. Neck is supple. There is no elevated jugular venous pressure. HEART EXAMINATION: Heart S1 and S2 irregularly irregular CHEST EXAMINATION: Lungs are clear to auscultation and precussion. No chest wall tenderness is noted on palpation or with deep breathing. ABDOMEN: Soft, generalized tenderness . Bowel sounds are heard. No organomegaly noted. EXTREMITIES: 2+ peripheral pulses with no evidence of peripheral edema and no calf tenderness noted. NEUROLOGIC patient is awake, alert and oriented -3. . - Labs CBC & Chem 7: 11/29/17 05:34 11/29/17 05:34 Labs: Abnormal Lab Results - Last 24 Hours (Table) 11/29/17 11/29/17 Range/Units 05:34 05:34 RBC 3.91 L (4.30-5.90) m/uL Hgb 11.4 L (13.0-17.5) gm/dL Hct 35.2 L (39.0-53.0) % Lymphocytes # 0.7 L (1.0-4.8) k/uL Total Bilirubin 2.4 H (0.2-1.3) mg/dL AST 498 H (17-59) U/L ALT 292 H (21-72) U/L Alkaline Phosphatase 391 H (38-126) U/L Total Protein 5.5 L (6.3-8.2) g/dL Albumin 3.0 L (3.5-5.0) g/dL Assessment and Plan Plan: Assessment and plan 1. Jaundice associated with abdominal pain, gallbladder ultrasound showing gallbladder stones with no common bile duct dilatation, ERCP is requested by gastrology. 2. Cholelithiasis with chronic cholecystitis, with possibility off choledocholithiasis, MRCP to be done November 23, ERCP in the morning 3. Atrial fibrillation chronic with rapid ventricular rate 4. Acute obstructive jaundice, monitor for common bile duct stones, monitor liver function test, MRCP as mentioned, hepatitis panel screen is negative 4. Asthma history without any exacerbation 6. History of melanoma left cheek 7. Hyperlipidemia 8. Hypothyroidism 9. CAD 10. BPH 11. GERD Plan We will continue to hold anticoagulation for ERCP, we will give the patient one dose of IV Lopressor just prior to the procedure. Continue to follow. DNP note has been reviewed, I agree with a documented findings and plan of care. Patient was seen and examined.
[2017-11-29] MEDS ORDERED: PROPOFOL 10 MG/ML 20 ML VIAL IV ONE (14:06)
[2017-11-29] MEDS ORDERED: IV FLUID CONTINUATION 1,000 ML IV ONE (14:06)
[2017-11-29] MEDS ORDERED: IOHEXOL 300 MG/ML 50 ML BOTTLE MISCELLANE ONE (15:12)
--- NOTE | 2017-11-29 15:16 | P.PCN ---
Date of Procedure: 11/29/17 Procedure(s) Performed: Procedure: Endoscopic retrograde cholangiopancreatography with sphincterotomy and successful extraction of common bile duct stone using the 11.5 mm balloon catheter. Preoperative diagnosis: Cholelithiasis and suspected choledocholithiasis. Postoperative diagnosis: 1. Normal papilla and pancreatic duct. 2. Common bile duct slightly dilated with filling defect consistent with common bile duct stone. 3. Successful sphincterotomy and extraction of the common bile duct stone using the 11.5 mm balloon catheter. Operation and sedation: Was provided by anesthesia. Brief clinical history: The patient is an 87-year-old male who presented with abdominal pain, nausea, vomiting and was found to have abnormal liver enzymes. His imaging studies showed cholelithiasis and suspected common bile duct stone. The details are summarized in the history and physical and dictated consultations and progress notes. Procedure: With the patient in the prone position and after informed consent and adequate sedation, I passed the Olympus video duodenoscope down the esophagus into the stomach then passed it through the pylorus into the duodenum and brought the papilla into view. The papilla appeared normal. Initial cannulation and injection with dye resulted in opacification of the pancreatic duct which appeared within normal. Subsequently, I was able to selectively cannulate and inject dye into the common bile duct. The common bile duct appeared somewhat dilated and there was a filling defect come distal common bile duct stone. I proceeded to exchange the catheter for a sphincterotome over a guidewire. After successful sphincterotomy, I was able to extract the common bile duct stone using the 11.5 mm balloon catheter which was withdrawn across the sphincterotomy site fully inflated. The patient tolerated the procedure well and did not have any immediate complications. Plan: I summarized the findings to the patient and his son. Will allow liquid diet and advance as tolerated. Timing of the cholecystectomy could be made based on his course. Will continue to follow with you with interest.
--- NOTE | 2017-11-29 16:04 | FL ---
EXAMINATION TYPE: FL ERCP biliary duct only DATE OF EXAM: 11/29/2017 CLINICAL HISTORY: Choledocholithiasis TECHNIQUE: Fluoroscopy. COMPARISON: MR 11/23/2017 FINDINGS: Fluoroscopic guidance was provided during procedure performed by Dr. Boykin. A total of 3 m inutes 49 seconds of fluoroscopic time was utilized during the procedure and 1 spot image was acquire d. IMPRESSION: See dictated report gastroenterology
[2017-11-29] MEDS: FAMOTIDINE 20 MG TAB PO SCH (21:42)
[2017-11-30] MEDS: LEVOTHYROXINE 137 MCG TAB PO SCH (06:28)
--- NOTE | 2017-11-30 07:44 | P.PN ---
Subjective Progress Note Date: 11/29/17 This is an 87-year-old gentleman patient of Dr. Perla. 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 Pain has been there for the past 1-1/2 weeks , with diminished appetite no fried fatty food intolerance, patient has pain across the subcostal area bilaterally left upper quadrant and right upper quadrant area, patient did not seek any consultation for this at all, and subsequently was seen in emergency room for evaluation. Patient was noted to be jaundice, with elevated liver function tests and alkaline phosphatase Total bili was 4.4, AST 222, ALT of 252, alkaline phosphatase 248 on the ER labs. Patient denies any fever no chills no hepato-masses, no melena, hematochezia, patient denies any alcohol intake, Emergency room, ultrasound shows multiple fundal gallstones with mildly thickened gallbladder wall, common bile duct is within normal limits 0.4 centimeter, hepatic steatosis noted patient was admitted with consultations to Dr. Peck, gastrology on my evaluation. Patient was noted to be in atrial fibrillation with rapid ventricular rate, additional atenolol 25 mg was given this morning, however patient goes into the 150s with ambulation, patient was transferred to medical floor with [facility] drip and consultation to cardiology patient is on aspirin only for anticoagulation, patient is not on any other blood thinners 11/24: Patient's heart rate remains at 115. Patient received a one-time dose of metoprolol 25 mg oral and has been on 25 mg daily. TSH is 7.3 and levothyroxine increased 137 g. Liver function tests are improving. Dr. Peck is planning for ERCP. 11/25: The patient is also followed by Dr. Boone. Patient is scheduled for ERCP today but then this was rescheduled. Cardiology has changed his extended release metoprolol to Lopressor 50 mg 3 times daily. Heart rate has been running between 99 and 120 Potassium will be replaced. 11/26: Patient is alert episode of A. fib with RVR in the 120s and 1 teens and ERCP scheduled for today has been canceled by anesthesia. Dr. Jefry wilkinson ordered IV Lasix 5 mg every 4 hours and hold for systolic blood pressure less than 90. On Wednesday when he is rescheduled for ERCP, patient is to have a dose of 5 AM and another prior to procedure. Heart rate is now 93-100. We will add in physical therapy for possible need for subacute rehab. Liver function tests are improving from previous with total bilirubin 1.7, ALT 137 alkaline phosphatase 181. 11/29: Patient is feeling tired and weak. He denies any shortness of breath. He states he has been up to the bathroom twice. He denies any lightheadedness. He does state he had abdominal pain last night but is gone at the time of our evaluation. He denies any nausea vomiting or diarrhea. His last bowel movement was yesterday and he denies any dark stools. surveillance system monitor is currently A. fib in the 80s to 90s. ERCP was done by Dr. Boykin which revealed normal papilloma and pancreatic duct. Common bile slightly dilated with filling defect consistent with common bile duct stone. Successful sphincterotomy and extraction of common bile duct stone. Patient was allowed liquid diet and advance as tolerated. Patient will be transferred to [facility] floor today. Objective - Vital Signs Vital signs: Vital Signs Temp 97.2 F L 11/29/17 08:15 Pulse 102 H 11/29/17 08:15 Resp 16 11/29/17 08:15 BP 119/83 11/29/17 08:15 Pulse Ox 97 11/29/17 08:15 Intake & Output 11/28/17 11/29/17 11/29/17 18:59 06:59 18:59 Intake Total 960 240 Output Total 850 Balance 960 -610 Weight 79.2 kg Intake: Oral 960 240 Output: Urine 850 Other: Voiding Method Toilet Urinal # Voids 1 # Bowel Movements 0 0 - Exam General appearance: cooperative, no acute distress - EENT Eyes: anicteric sclerae, EOMI, PERRLA, dentition normal, normal appearance ENT: hearing grossly normal, normal oropharynx - Neck Neck: normal ROM - Respiratory Respiratory: bilateral: CTA, negative: diminished, dullness, rales, rhonchi - Cardiovascular Rhythm: regular Heart sounds: normal: S1, S2 Abnormal Heart Sounds: no systolic murmur, no diastolic murmur, no rub, no S3 Gallop, no S4 Gallop, no click, no other - Gastrointestinal General gastrointestinal: normal bowel sounds, soft - Integumentary Integumentary: normal - Neurologic Neurologic: CNII-XII intact - Musculoskeletal Musculoskeletal: gait normal, strength equal bilaterally - Psychiatric Psychiatric: A&O x's 3, appropriate affect, intact judgment & insight - Labs CBC & Chem 7: 11/29/17 05:34 11/29/17 05:34 Labs: Abnormal Lab Results - Last 24 Hours (Table) 11/29/17 11/29/17 Range/Units 05:34 05:34 RBC 3.91 L (4.30-5.90) m/uL Hgb 11.4 L (13.0-17.5) gm/dL Hct 35.2 L (39.0-53.0) % Lymphocytes # 0.7 L (1.0-4.8) k/uL Total Bilirubin 2.4 H (0.2-1.3) mg/dL AST 498 H (17-59) U/L ALT 292 H (21-72) U/L Alkaline Phosphatase 391 H (38-126) U/L Total Protein 5.5 L (6.3-8.2) g/dL Albumin 3.0 L (3.5-5.0) g/dL Assessment and Plan Plan: 1. Jaundice associated with abdominal pain, secondary to common bile duct stone status post sphincterotomy and extraction of common bile duct stone. Patient to be started on liquid diet and advance as tolerated. possible cholecystitis to wv as an outpatient with Dr. Boone. 2. Cholelithiasis with chronic cholecystitis, with possibility off choledocholithiasis, MRCP to be done November 23, ERCP in the morning, heparin is not provided for the atrial fibrillation with the anticipated procedure tomorrow 3. Atrial fibrillation chronic with rapid ventricular rate, with recurrent episodes patient was transferred from medical floor as he did not respond atenolol 50 mg and he was transferred to telemetry in 6 floor. Patient would need long-term anticoagulation with Coumadin or factor X a inhibitors unless contraindicated. Patient is currently on metoprolol XL 100 mg daily daily. 4. Acute obstructive jaundice, monitor for common bile duct stones, monitor liver function test, MRCP, ERCP to be rescheduled 4. Asthma, mild intermittent, history without any exacerbation, on Singulair 6. History of melanoma left cheek, unknown activity 7. Hyperlipidemia, not on statins on hold secondary to elevated liver function tests 8. Hypothyroidism on levothyroxine 125 daily next 9. CAD on Imdur 60 mg daily Lipitor is held secondary to elevated liver function tests, metoprolol is increased to 50 mg daily secondary to A. fib RVR, 10. BPH on Cardura Proscar no changes made 11. GERD on maintenance Pepcid 20 mg daily and Zantac 150 milligram at bedtime 12. GI prophylaxis on maintenanc PPI DVT prophylaxis, heparin IV or factor X a inhibitors will be given after procedure, otherwise JESSIE hose and early ambulation Discharge plan: Return home at [facility], patient may benefit from subacute rehab Impression and plan of care have been directed as dictated by the signing physician. Jaclyn Trammell nurse practitioner acting as scribe for signing physician.
[2017-11-30] MEDS: DOXAZOSIN 4 MG TAB PO SCH (09:27)
[2017-11-30] MEDS: PANTOPRAZOLE 40 MG TABLET PO SCH (09:27)
[2017-11-30] MEDS: METOPROLOL SUCCINATE (ER) 50 MG TAB.ER.24H PO SCH (09:27)
[2017-11-30] MEDS: DILTIAZEM ORAL 30 MG TAB PO SCH ×3 (09:27→21:46)
[2017-11-30] MEDS: ISOSORBIDE MONONITRATE ER 60 MG TAB.ER.24H PO SCH (09:27)
[2017-11-30] MEDS: FINASTERIDE 5 MG TAB PO SCH (09:27)
[2017-11-30] MEDS: MONTELUKAST 10 MG TAB PO SCH (09:28)
[2017-11-30 10:40] LABS: Basophils % (A) 0 %; Eosinophils # (A) 0.1 k/uL (0-0.7); Eosinophils % (A) 3 %; HCT 36.4 % (39.0-53.0); HGB 11.9 gm/dL (13.0-17.5); Lymphocytes # (A) 0.5 k/uL (1.0-4.8); Lymphocytes % (A) 9 %; MCH 29.4 pg (25.0-35.0); MCHC 32.8 g/dL (31.0-37.0); MCV 89.8 fL (80.0-100.0); Mean Platelet Volume 7.4; Monocytes # (A) 0.3 k/uL (0-1.0); Monocytes % (A) 5 %; Neutrophils # (A) 4.3 k/uL (1.3-7.7); Neutrophils % (A) 81 %; Platelet Count 356 k/uL (150-450); RBC 4.06 m/uL (4.30-5.90); RDW 13.1 % (11.5-15.5); WBC 5.3 k/uL (3.8-10.6)
[2017-11-30 10:41] VITALS: BMI 29.0
--- NOTE | 2017-11-30 10:42 | P.PN ---
Subjective Progress Note Date: 11/30/17 Principal diagnosis: Abdominal pain choledocholithiasis Status post ERCP sphincterotomy and balloon stone extraction yesterday. Scheduled for OR today. Denies abdominal pain. No chemistries to review this morning. Objective - Vital Signs Vital signs: Vital Signs Temp 97.7 F 11/30/17 09:43 Pulse 57 L 11/30/17 09:43 Resp 18 11/30/17 09:43 BP 156/81 11/30/17 09:43 Pulse Ox 97 11/30/17 09:43 Intake & Output 11/29/17 11/30/17 11/30/17 18:59 06:59 18:59 Intake Total 800 775 Balance 800 775 Intake: IV 800 675 IV Fluid Continuation 1, 150 000 ml As IV .[facility] Rx#:[id number] Sodium Chloride 0.9% 1, 450 675 000 ml @ 75 mls/hr IV . [id number] [facility] Rx#:[id number] Oral 100 Other: Voiding Method Toilet Toilet Urinal Urinal # Voids 3 1 # Bowel Movements 1 - Exam General appearance: The patient is alert, oriented, in no acute distress. HET: Head is normocephalic and atraumatic. Pupils are equal and reactive. Oropharynx is clear without lesions. Neck: Supple without lymphadenopathy. Trachea midline. Heart: S1 S2. Irregular. Lungs: No crackles or wheezes are heard. Abdomen: Soft, nontender, nondistended with bowel sounds. No peritoneal signs. No palpable organomegaly or masses. Extremities: Normal skin color and turgor. No cyanosis, rash, ulceration, clubbing, or edema. Radial and pedal pulses are 2/4 bilaterally. Neurological: No focal deficits. Strength and sensation are grossly intact. - Labs CBC & Chem 7: 11/29/17 05:34 11/29/17 05:34 Assessment and Plan (1) Abdominal pain Narrative/Plan: Secondary to choledocholithiasis status post ERCP sphincterotomy with balloon stone extraction Current Visit: Yes Status: Acute Code(s): R10.9 - UNSPECIFIED ABDOMINAL PAIN SNOMED Code(s): 09381594 (2) Jaundice Current Visit: Yes Status: Acute Code(s): R17 - UNSPECIFIED JAUNDICE SNOMED Code(s): 08047630 (3) Cholelithiasis Current Visit: Yes Status: Acute Code(s): K80.20 - CALCULUS OF GALLBLADDER W /O CHOLECYSTITIS W/O OBSTRUCTION SNOMED Code(s): 373313790 (4) Elevated liver enzymes Current Visit: Yes Status: Acute Code(s): R74.8 - ABNORMAL LEVELS OF OTHER SERUM ENZYMES SNOMED Code(s): 270851981 (5) Atrial fibrillation with RVR Current Visit: Yes Status: Acute Code(s): I48.91 - UNSPECIFIED ATRIAL FIBRILLATION SNOMED Code(s): 746272236482547 Plan: 1. Continue supportive measures. We'll sign off and be available for questions or concerns. OR today. Assessment and plan a care discussed with Dr. Boykin
[2017-11-30 10:55] LABS: ALT 207 U/L (21-72); AST 149 U/L (17-59); Albumin 3.4 g/dL (3.5-5.0); Alkaline Phosphatase 347 U/L (38-126); Anion Gap 10 mmol/L; Bilirubin, Delta 0.7 mg/dL (0.0-0.2); Bilirubin,Unconjugated 1.3 mg/dL (0.0-1.1); Blood Urea Nitrogen 14 mg/dL (9-20); Calcium 8.9 mg/dL (8.4-10.2); Carbon Dioxide 26 mmol/L (22-30); Chloride 104 mmol/L (98-107); Glucose 90 mg/dL (74-99); Potassium 4.5 mmol/L (3.5-5.1); Sodium 140 mmol/L (137-145); Total Protein 5.9 g/dL (6.3-8.2)
--- NOTE | 2017-11-30 11:08 | P.PN ---
Subjective Progress Note Date: 11/30/17 Mr. Fischer is seen today in his room resting comfortably in bed. He denies symptoms of chest pain, shortness of breath, dizziness or dizziness. He underwent ERCP yesterday and is scheduled for cholecystectomy today. Blood pressure this morning is 156/81 herat rate 57. Objective - Vital Signs Vital signs: Vital Signs Temp 97.7 F 11/30/17 09:43 Pulse 57 L 11/30/17 09:43 Resp 18 11/30/17 09:43 BP 156/81 11/30/17 09:43 Pulse Ox 97 11/30/17 09:43 Intake & Output 11/29/17 11/30/17 11/30/17 18:59 06:59 18:59 Intake Total 800 775 Balance 800 775 Intake: IV 800 675 IV Fluid Continuation 1, 150 000 ml As IV .[facility] Rx#:[id number] Sodium Chloride 0.9% 1, 450 675 000 ml @ 75 mls/hr IV . [id number] [facility] Rx#:[id number] Oral 100 Other: Voiding Method Toilet Toilet Urinal Urinal # Voids 3 1 # Bowel Movements 1 - Exam Blood pressure 156/81 heart rate 57 afebrile maintaining oxygen saturation on room air GENERAL: Well-appearing, well-nourished and in no acute distress. NECK: Supple without JVD or thyromegaly. LUNGS: Breath sounds clear to auscultation bilaterally. Respiration equal and unlabored. No wheezes, rales or rhonchi. HEART: Irregular rate and rhythm without murmurs, rubs or gallops. S1 and S2 heard. EXTREMITIES: Normal range of motion, no edema. No clubbing or cyanosis. Peripheral pulses intact and strong. - Labs CBC & Chem 7: 11/30/17 10:20 11/30/17 10:20 Assessment and Plan Assessment: ASSESSMENT 1. Jaundice associated with abdominal pain, gallbladder ultrasound showing gallbladder stones with no common bile duct dilatation, ERCP is requested by gastrology. 2. Cholelithiasis with chronic cholecystitis, with possibility off choledocholithiasis, MRCP to be done November 23, ERCP in the morning 3. Atrial fibrillation chronic with rapid ventricular rate 4. Acute obstructive jaundice, monitor for common bile duct stones, monitor liver function test, MRCP as mentioned, hepatitis panel screen is negative 4. Asthma history without any exacerbation 6. History of melanoma left cheek 7. Hyperlipidemia 8. Hypothyroidism 9. CAD 10. BPH 11. GERD PLAN Scheduled for cholecystectomy today. Heart rate and blood pressure are well controlled. Continue to hold anticoagulation. This should be initiated as soon as it possible post-surgery. We will continue to follow. The above impression and plan of care have been discussed and directed by the signing physician. Jemima Carrasco, nurse practitioner, acting as scribe for signing physician.
[2017-11-30] MEDS ORDERED: MIDAZOLAM 2 MG/2 ML VIAL ONE (12:02)
[2017-11-30] MEDS ORDERED: LACTATED RINGERS 1,000 ML IV ONE ×2 (12:05→14:35)
[2017-11-30] MEDS ORDERED: ceFAZolin IN SWFI 2 GM/20 ML SYRINGE IVP STA (12:30)
[2017-11-30] MEDS ORDERED: HEPARIN SODIUM,PORCINE 5,000 UNIT/ML 1 ML VIAL ONE (12:33)
[2017-11-30] MEDS ORDERED: ePHEDrine SULFATE/0.9% NACL/PF 50 MG/5 ML SYRINGE IV ONE (12:33)
[2017-11-30] MEDS ORDERED: NEOSTIGMINE 1 MG/ML 10 ML VIAL ONE (12:33)
[2017-11-30] MEDS ORDERED: PROPOFOL 10 MG/ML 20 ML VIAL IV ONE (12:33)
[2017-11-30] MEDS ORDERED: BUPIVACAINE (PF) 0.5% 30 ML VIAL SQ ONE (12:33)
[2017-11-30] MEDS ORDERED: ceFAZolin 1,000 MG VIAL ONE (12:33)
[2017-11-30] MEDS ORDERED: LIDOCAINE 1% INJ 10MG/ML (20 ML MDV) ONE (12:33)
[2017-11-30] MEDS ORDERED: HYDROmorphone (PF) 1 MG/ML ONE (12:33)
[2017-11-30] MEDS ORDERED: GLYCOPYRROLATE 0.2 MG/ML 2 ML VIAL ONE (12:33)
[2017-11-30] MEDS ORDERED: ROCURONIUM BROMIDE 10 MG/ML 10 ML VIAL IV ONE (12:33)
--- NOTE | 2017-11-30 13:52 | P.OP ---
Date of Procedure: 11/30/17 Preoperative Diagnosis: Acute cholecystitis with cholelithiasis and choledocholithiasis Postoperative Diagnosis: Acute cholecystitis with cholelithiasis and choledocholithiasis Procedure(s) Performed: Laparoscopic cholecystectomy Anesthesia: NIC Surgeon: Kimberly Boone Estimated Blood Loss (ml): 25 Pathology: other (Gallbladder and contents) Condition: stable Disposition: floor Indications for Procedure: 87-year-old male that presented with right upper quadrant and epigastric pain was found to have cholelithiasis and choledocholithiasis with acute cholecystitis. The patient did have multiple episodes of A. fib with RVR that was treated and eventually underwent an ERCP. Stone was removed from the common bile duct and sphincterotomy was performed. The patient is needed to be placed on anticoagulation secondary to his A. fib with RVR and an urgent cholecystectomy was planned. The patient and the patient's family were explained the risks, benefits and alternatives to the procedure provided consent prior to attending the operating suite. Operative Findings: Inflamed gallbladder with omental adhesions and cholelithiasis Description of Procedure: Patient was brought into the operating suite and placed in supine position on the operating table. Sedation was provided by anesthesia and the patient underwent endotracheal intubation. The patient then was prepped and draped in regular sterile fashion. An intravesical incision was made dissection was carried to the fascia the fascia was incised and the peritoneum was entered. A 12 mm port was placed and pneumoperitoneum was achieved. 3 additional 5 mm ports were placed in the subxiphoid and right upper quadrant. The gallbladder was then grasped and retracted. Dissection was made to skeletonize the cystic duct. Once skeletonize, 2 clips were placed proximally one was placed distally and the cystic duct was ligated. Further dissection revealed the cystic artery. The cystic artery were skeletonized. 2 clips were placed proximally one was placed distally and the cystic artery was negative. A elective cautery was then used to dissect the gallbladder from the gallbladder fossa on the liver bed. Hemostasis was maintained. Irrigation was then used and suctioned. A JOVANNA drain was then placed in the right upper quadrant. On suture was used to secure the JOVANNA drain in place. Pneumoperitoneum was released. The fascia at these infraumbilical incision site was closed with a [id number] Vicryl suture. All skin incisions were then closed with 4-0 subcuticular Vicryl sutures. The patient was awakened in the operating suite and taken to postanesthesia care unit in stable condition.
[2017-11-30] MEDS ORDERED: MORPHINE SULFATE 4 MG/ML SYRINGE IVP ONE (14:00)
[2017-11-30] MEDS ORDERED: ONDANSETRON 4 MG/2 ML VIAL IVP ONE (14:06)
[2017-11-30] MEDS ORDERED: MORPHINE SULFATE 4 MG/ML SYRINGE IV ONE (14:07)
[2017-11-30] MEDS ORDERED: fentaNYL (PF) 50 MCG/ML 2 ML AMP IV ONE ×2 (14:12→14:24)
--- NOTE | 2017-11-30 14:22 | P.PN ---
Subjective Progress Note Date: 11/30/17 This is an 87-year-old gentleman patient of Dr. Perla. 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 Pain has been there for the past 1-1/2 weeks , with diminished appetite no fried fatty food intolerance, patient has pain across the subcostal area bilaterally left upper quadrant and right upper quadrant area, patient did not seek any consultation for this at all, and subsequently was seen in emergency room for evaluation. Patient was noted to be jaundice, with elevated liver function tests and alkaline phosphatase Total bili was 4.4, AST 222, ALT of 252, alkaline phosphatase 248 on the ER labs. Patient denies any fever no chills no hepato-masses, no melena, hematochezia, patient denies any alcohol intake, Emergency room, ultrasound shows multiple fundal gallstones with mildly thickened gallbladder wall, common bile duct is within normal limits 0.4 centimeter, hepatic steatosis noted patient was admitted with consultations to Dr. Peck, gastrology on my evaluation. Patient was noted to be in atrial fibrillation with rapid ventricular rate, additional atenolol 25 mg was given this morning, however patient goes into the 150s with ambulation, patient was transferred to medical floor with [facility] drip and consultation to cardiology patient is on aspirin only for anticoagulation, patient is not on any other blood thinners 11/24: Patient's heart rate remains at 115. Patient received a one-time dose of metoprolol 25 mg oral and has been on 25 mg daily. TSH is 7.3 and levothyroxine increased 137 g. Liver function tests are improving. Dr. Peck is planning for ERCP. 11/25: The patient is also followed by Dr. Boone. Patient is scheduled for ERCP today but then this was rescheduled. Cardiology has changed his extended release metoprolol to Lopressor 50 mg 3 times daily. Heart rate has been running between 99 and 120 Potassium will be replaced. 11/26: Patient is alert episode of A. fib with RVR in the 120s and 1 teens and ERCP scheduled for today has been canceled by anesthesia. Dr. Jefry wilkinson ordered IV Lasix 5 mg every 4 hours and hold for systolic blood pressure less than 90. On Wednesday when he is rescheduled for ERCP, patient is to have a dose of 5 AM and another prior to procedure. Heart rate is now 93-100. We will add in physical therapy for possible need for subacute rehab. Liver function tests are improving from previous with total bilirubin 1.7, ALT 137 alkaline phosphatase 181. 11/29: Patient is feeling tired and weak. He denies any shortness of breath. He states he has been up to the bathroom twice. He denies any lightheadedness. He does state he had abdominal pain last night but is gone at the time of our evaluation. He denies any nausea vomiting or diarrhea. His last bowel movement was yesterday and he denies any dark stools. 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 ERCP was done by Dr. Boykin which revealed normal papilloma and pancreatic duct. Common bile slightly dilated with filling defect consistent with common bile duct stone. Successful sphincterotomy and extraction of common bile duct stone. Patient was allowed liquid diet and advance as tolerated. Patient will be transferred to [facility] floor today. 11/30: Liver enzymes are elevated from yesterday. Dr. Boone is planning for laparoscopic cholecystectomy this afternoon. Patient remains off anticoagulation and cardiology as recommended. We will start eliquis following surgery. Anticipate possible discharge by tomorrow. Patient denies having lightheadedness or dizziness. Physical therapy has recommended home. Objective - Vital Signs Vital signs: Vital Signs Temp 97.7 F 11/30/17 09:43 Pulse 57 L 11/30/17 09:43 Resp 18 11/30/17 09:43 BP 156/81 11/30/17 09:43 Pulse Ox 97 11/30/17 09:43 Intake & Output 11/29/17 11/30/17 11/30/17 18:59 06:59 18:59 Intake Total 800 775 Balance 800 775 Intake: IV 800 675 IV Fluid Continuation 1, 150 000 ml As IV .[facility] Rx#:[id number] Sodium Chloride 0.9% 1, 450 675 000 ml @ 75 mls/hr IV . [id number] [facility] Rx#:[id number] Oral 100 Other: Voiding Method Toilet Toilet Urinal Urinal # Voids 3 1 # Bowel Movements 1 - Exam General appearance: cooperative, no acute distress - EENT Eyes: anicteric sclerae, EOMI, PERRLA, dentition normal, normal appearance ENT: hearing grossly normal, normal oropharynx - Neck Neck: normal ROM - Respiratory Respiratory: bilateral: CTA, negative: diminished, dullness, rales, rhonchi - Cardiovascular Rhythm: regular Heart sounds: normal: S1, S2 Abnormal Heart Sounds: no systolic murmur, no diastolic murmur, no rub, no S3 Gallop, no S4 Gallop, no click, no other - Gastrointestinal General gastrointestinal: normal bowel sounds, soft - Integumentary Integumentary: normal - Neurologic Neurologic: CNII-XII intact - Musculoskeletal Musculoskeletal: gait normal, strength equal bilaterally - Psychiatric Psychiatric: A&O x's 3, appropriate affect, intact judgment & insight - Labs CBC & Chem 7: 11/30/17 10:20 11/30/17 10:20 Assessment and Plan Plan: 1. Jaundice associated with abdominal pain, secondary to common bile duct stone status post sphincterotomy and extraction of common bile duct stone. Patient to be started on liquid diet and advance as tolerated. Cholecystectomy today with Dr. Boone 2. Cholelithiasis with chronic cholecystitis, with possibility off choledocholithiasis, MRCP to be done November 23, ERCP in the morning, heparin is not provided for the atrial fibrillation with the anticipated procedure tomorrow 3. Atrial fibrillation chronic with rapid ventricular rate, with recurrent episodes patient was transferred from medical floor as he did not respond atenolol 50 mg and he was transferred to telemetry in 6 floor. Patient will be started on eliquis 5 mg twice daily. 4. Acute obstructive jaundice, monitor for common bile duct stones, monitor liver function test, MRCP, ERCP to be rescheduled 4. Asthma, mild intermittent, history without any exacerbation, on Singulair 6. History of melanoma left cheek, unknown activity 7. Hyperlipidemia, not on statins on hold secondary to elevated liver function tests 8. Hypothyroidism on levothyroxine 125 daily next 9. CAD on Imdur 60 mg daily Lipitor is held secondary to elevated liver function tests, metoprolol is increased to 50 mg daily secondary to A. fib RVR, 10. BPH on Cardura Proscar no changes made 11. GERD on maintenance Pepcid 20 mg daily and Zantac 150 milligram at bedtime 12. GI prophylaxis on maintenanc PPI DVT prophylaxis, heparin IV or factor X a inhibitors will be given after procedure, otherwise JESSIE hose and early ambulation Discharge plan: Return home at [facility] Impression and plan of care have been directed as dictated by the signing physician. Jaclyn Trammell nurse practitioner acting as scribe for signing physician.
[2017-11-30] MEDS: SODIUM CHLORIDE 0.9% 1,000 ML IV SCH (15:09)
[2017-11-30] MEDS: MORPHINE SULFATE/PF 10MG/10ML VL IVP PRN ×2 (16:09→21:47)
[2017-11-30] MEDS: KETOROLAC 30 MG/ML 1 ML VIAL IVP SCH ×2 (17:34→23:41)
[2017-11-30] MEDS ORDERED: APIXABAN 5 MG TAB PO SCH (21:00)
[2017-11-30] MEDS: FAMOTIDINE 20 MG TAB PO SCH (21:47)
[2017-11-30] MEDS: HEPARIN SODIUM,PORCINE 5,000 UNIT/ML 1 ML VIAL SQ SCH (23:42)
[2017-12-01] MEDS: SODIUM CHLORIDE 0.9% 1,000 ML IV SCH (02:10)
[2017-12-01] MEDS: KETOROLAC 30 MG/ML 1 ML VIAL IVP SCH (05:43)
[2017-12-01] MEDS: LEVOTHYROXINE 137 MCG TAB PO SCH (05:43)
[2017-12-01] MEDS: MORPHINE SULFATE/PF 10MG/10ML VL IVP PRN (06:56)
[2017-12-01] MEDS: PANTOPRAZOLE 40 MG TABLET PO SCH (08:26)
[2017-12-01] MEDS: MONTELUKAST 10 MG TAB PO SCH (08:27)
[2017-12-01] MEDS: METOPROLOL SUCCINATE (ER) 50 MG TAB.ER.24H PO SCH (08:27)
[2017-12-01] MEDS: DOXAZOSIN 4 MG TAB PO SCH (08:27)
[2017-12-01] MEDS: ISOSORBIDE MONONITRATE ER 60 MG TAB.ER.24H PO SCH (08:27)
[2017-12-01] MEDS: HEPARIN SODIUM,PORCINE 5,000 UNIT/ML 1 ML VIAL SQ SCH ×3 (08:27→22:21)
[2017-12-01] MEDS: DILTIAZEM ORAL 30 MG TAB PO SCH ×3 (08:27→21:10)
[2017-12-01] MEDS: FINASTERIDE 5 MG TAB PO SCH (08:27)
[2017-12-01 08:38] LABS: ALT 153 U/L (21-72); AST 115 U/L (17-59); Alkaline Phosphatase 291 U/L (38-126); Anion Gap 10 mmol/L; Blood Urea Nitrogen 14 mg/dL (9-20); Calcium 8.4 mg/dL (8.4-10.2); Carbon Dioxide 24 mmol/L (22-30); Chloride 104 mmol/L (98-107); Glucose 75 mg/dL (74-99); Potassium 4.1 mmol/L (3.5-5.1); Sodium 138 mmol/L (137-145); Total Bilirubin 1.8 mg/dL (0.2-1.3); Total Protein 5.4 g/dL (6.3-8.2)
--- NOTE | 2017-12-01 10:19 | P.PN ---
Subjective Progress Note Date: 12/01/17 Patient seen and examined at bedside. States he is uncomfortable at the JOVANNA drain site. Denies any nausea and vomiting. Needed straight catheterization overnight for urine output. Awaiting urination this morning. Objective - Vital Signs Vital signs: Vital Signs Temp 98.8 F 12/01/17 07:00 Pulse 72 12/01/17 07:00 Resp 16 12/01/17 07:00 BP 109/57 12/01/17 07:00 Pulse Ox 94 L 12/01/17 07:00 Intake & Output 11/30/17 12/01/17 12/01/17 18:59 06:59 18:59 Intake Total 2175 875 Output Total 375 695 Balance 1800 180 Weight 79.2 kg Intake: IV 1225 675 Sodium Chloride 0.9% 1, 675 000 ml @ 75 mls/hr IV . [id number] [facility] Rx#:[id number] Intake, IV Titration 950 Amount Lactated Ringers 1,000 ml 800 As IV .[facility] Rx#: [id number] Sodium Chloride 0.9% 1, 150 000 ml @ 75 mls/hr IV . [id number] [facility] Rx#:[id number] Oral 200 Output: Drainage 45 Right Abdomen 45 Urine 350 650 Straight 650 Estimated Blood Loss 25 Other: Voiding Method Toilet Urinal Urinal # Voids 3 # Bowel Movements 1 - Constitutional General appearance: Present: cooperative, no acute distress - EENT ENT: Present: hearing grossly normal - Respiratory Details: No difficulty with respiration - Gastrointestinal Gastrointestinal Comment(s): Soft, appropriate tenderness, nondistended, no rebound, no guarding - Musculoskeletal Musculoskeletal: Present: generalized weakness - Psychiatric Psychiatric: Present: A&O x's 3 - Labs CBC & Chem 7: 11/30/17 10:20 12/01/17 07:19 Labs: Abnormal Lab Results - Last 24 Hours (Table) 11/30/17 11/30/17 12/01/17 Range/Units 10:20 10:20 07:19 RBC 4.06 L (4.30-5.90) m/uL Hgb 11.9 L (13.0-17.5) gm/dL Hct 36.4 L (39.0-53.0) % Lymphocytes # 0.5 L (1.0-4.8) k/uL Total Bilirubin 2.0 H 1.8 H (0.2-1.3) mg/dL Unconjugated Bilirubin 1.3 H (0.0-1.1) mg/dL Delta Bilirubin 0.7 H (0.0-0.2) mg/dL AST 149 H 115 H (17-59) U/L ALT 207 H 153 H (21-72) U/L Alkaline Phosphatase 347 H 291 H (38-126) U/L Total Protein 5.9 L 5.4 L (6.3-8.2) g/dL Albumin 3.4 L 3.0 L (3.5-5.0) g/dL Assessment and Plan (1) Cholelithiasis Narrative/Plan: 87-year-old male status post left scopic cholecystectomy, postop day #1 - JOVANNA drain removed, was noted to have only serosanguineous fluid overnight - Okay to advance diet to soft diet - Pain control as necessary - Cardiology recommendations on anticoagulation and atrial fibrillation management - Continue medical management Current Visit: Yes Status: Acute Code(s): K80.20 - CALCULUS OF GALLBLADDER W /O CHOLECYSTITIS W/O OBSTRUCTION SNOMED Code(s): 404181157 (2) Elevated liver enzymes Current Visit: Yes Status: Acute Code(s): R74.8 - ABNORMAL LEVELS OF OTHER SERUM ENZYMES SNOMED Code(s): 049792853
[2017-12-01] MEDS ORDERED: DOXAZOSIN 4 MG TAB PO STA (10:39)
[2017-12-01] MEDS ORDERED: ACETAMINOPHEN TAB 500 MG TAB PO PRN (10:39)
[2017-12-01] MEDS ORDERED: KETOROLAC 30 MG/ML 1 ML VIAL IVP PRN (10:40)
--- NOTE | 2017-12-01 12:00 | PN ---
PROGRESS NOTE Mr. Fischer underwent a gallbladder surgery yesterday, cholecystectomy, uneventfully. He has what seems to be paroxysmal atrial fibrillation. He is 87 years of age. He was on apixaban for a couple of days, but this was held prior to surgery. I am suggesting that we hold anticoagulation today and I will discuss with him at length tomorrow and see if he is a decent candidate for long-term anticoagulation and if so we will start him at a lower dose of apixaban at 2.5 mg b.i.d. It appears that when he was seen by Dr. Chamorro that was probably the first time a diagnosis of atrial fibrillation was made and he actually came in with some jaundice and abdominal pain. He was found to be in atrial fibrillation at that time. Whether this is a recent onset or not is unclear. Patient has never been anticoagulated before. His vital signs are stable. S1, S2 heard normally. He appears to be in a sinus rhythm. Lungs are clear. Abdomen exam was deferred. Lower extremities reveal diminished pulses. For now I am recommending that we continue his current medications and tomorrow I will re-evaluate and discuss with the patient about anticoagulation and if he is receptive, we will start him at 2.5 mg of Eliquis b.i.d. Discussed my thoughts in detail with the patient and also with Dr. Boone, the surgeon who performed his cholecystectomy. MMODL / IJN: [id number] /
[2017-12-01 12:15] LABS: Basophils % (A) 0 %; Eosinophils # (A) 0.1 k/uL (0-0.7); Eosinophils % (A) 1 %; HCT 33.8 % (39.0-53.0); HGB 10.5 gm/dL (13.0-17.5); Hypochromasia Slight; Lymphocytes # (A) 0.3 k/uL (1.0-4.8); Lymphocytes % (A) 3 %; MCH 28.8 pg (25.0-35.0); MCHC 31.2 g/dL (31.0-37.0); MCV 92.3 fL (80.0-100.0); Mean Platelet Volume 8.4; Monocytes # (A) 0.5 k/uL (0-1.0); Monocytes % (A) 5 %; Neutrophils # (A) 8.9 k/uL (1.3-7.7); Neutrophils % (A) 91 %; Platelet Count 287 k/uL (150-450); RBC 3.66 m/uL (4.30-5.90); RDW 13.2 % (11.5-15.5); WBC 9.8 k/uL (3.8-10.6)
--- NOTE | 2017-12-01 14:20 | P.PN ---
Subjective Progress Note Date: 12/01/17 This is an 87-year-old gentleman patient of Dr. Perla. 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 Pain has been there for the past 1-1/2 weeks , with diminished appetite no fried fatty food intolerance, patient has pain across the subcostal area bilaterally left upper quadrant and right upper quadrant area, patient did not seek any consultation for this at all, and subsequently was seen in emergency room for evaluation. Patient was noted to be jaundice, with elevated liver function tests and alkaline phosphatase Total bili was 4.4, AST 222, ALT of 252, alkaline phosphatase 248 on the ER labs. Patient denies any fever no chills no hepato-masses, no melena, hematochezia, patient denies any alcohol intake, Emergency room, ultrasound shows multiple fundal gallstones with mildly thickened gallbladder wall, common bile duct is within normal limits 0.4 centimeter, hepatic steatosis noted patient was admitted with consultations to Dr. Peck, gastrology on my evaluation. Patient was noted to be in atrial fibrillation with rapid ventricular rate, additional atenolol 25 mg was given this morning, however patient goes into the 150s with ambulation, patient was transferred to medical floor with [facility] drip and consultation to cardiology patient is on aspirin only for anticoagulation, patient is not on any other blood thinners 11/24: Patient's heart rate remains at 115. Patient received a one-time dose of metoprolol 25 mg oral and has been on 25 mg daily. TSH is 7.3 and levothyroxine increased 137 g. Liver function tests are improving. Dr. Peck is planning for ERCP. 11/25: The patient is also followed by Dr. Boone. Patient is scheduled for ERCP today but then this was rescheduled. Cardiology has changed his extended release metoprolol to Lopressor 50 mg 3 times daily. Heart rate has been running between 99 and 120 Potassium will be replaced. 11/26: Patient is alert episode of A. fib with RVR in the 120s and 1 teens and ERCP scheduled for today has been canceled by anesthesia. Dr. Jefry wilkinson ordered IV Lasix 5 mg every 4 hours and hold for systolic blood pressure less than 90. On Wednesday when he is rescheduled for ERCP, patient is to have a dose of 5 AM and another prior to procedure. Heart rate is now 93-100. We will add in physical therapy for possible need for subacute rehab. Liver function tests are improving from previous with total bilirubin 1.7, ALT 137 alkaline phosphatase 181. 11/29: Patient is feeling tired and weak. He denies any shortness of breath. He states he has been up to the bathroom twice. He denies any lightheadedness. He does state he had abdominal pain last night but is gone at the time of our evaluation. He denies any nausea vomiting or diarrhea. His last bowel movement was yesterday and he denies any dark stools. 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 ERCP was done by Dr. Boykin which revealed normal papilloma and pancreatic duct. Common bile slightly dilated with filling defect consistent with common bile duct stone. Successful sphincterotomy and extraction of common bile duct stone. Patient was allowed liquid diet and advance as tolerated. Patient will be transferred to [facility] floor today. 11/30: Liver enzymes are elevated from yesterday. Dr. Boone is planning for laparoscopic cholecystectomy this afternoon. Patient remains off anticoagulation and cardiology as recommended. We will start eliquis following surgery. Anticipate possible discharge by tomorrow. Patient denies having lightheadedness or dizziness. Physical therapy has recommended home. 12/01: Patient had excruciating pain following his laparoscopic cholecystectomy yesterday. Dr. Boone took his drain out. His pain is currently controlled and Toradol seemed to be quite effective. Patient received a dose of morphine this morning and is too sedated. We will discontinue morphine altogether and change Toradol to as needed. IV fluids discontinued. Diet for lunch is to be low-fat low fiber. Anticipate discharge home tomorrow. Objective - Vital Signs Vital signs: Vital Signs Temp 98.8 F 12/01/17 07:00 Pulse 72 12/01/17 07:00 Resp 16 12/01/17 07:00 BP 109/57 12/01/17 07:00 Pulse Ox 94 L 12/01/17 07:00 Intake & Output 11/30/17 12/01/17 12/01/17 18:59 06:59 18:59 Intake Total 2175 875 480 Output Total 375 695 20 Balance 1800 180 460 Weight 79.2 kg Intake: IV 1225 675 Sodium Chloride 0.9% 1, 675 000 ml @ 75 mls/hr IV . [id number] [facility] Rx#:[id number] Intake, IV Titration 950 Amount Lactated Ringers 1,000 ml 800 As IV .[facility] Rx#: [id number] Sodium Chloride 0.9% 1, 150 000 ml @ 75 mls/hr IV . [id number] [facility] Rx#:[id number] Oral 200 480 Output: Drainage 45 20 Right Abdomen 45 20 Urine 350 650 Straight 650 Estimated Blood Loss 25 Other: Voiding Method Toilet Urinal Urinal # Voids 3 # Bowel Movements 1 - Exam General appearance: cooperative, no acute distress - EENT Eyes: anicteric sclerae, EOMI, PERRLA, dentition normal, normal appearance ENT: hearing grossly normal, normal oropharynx - Neck Neck: normal ROM - Respiratory Respiratory: bilateral: CTA, negative: diminished, dullness, rales, rhonchi - Cardiovascular Rhythm: regular Heart sounds: normal: S1, S2 Abnormal Heart Sounds: no systolic murmur, no diastolic murmur, no rub, no S3 Gallop, no S4 Gallop, no click, no other - Gastrointestinal General gastrointestinal: normal bowel sounds, soft - Integumentary Integumentary: normal - Neurologic Neurologic: CNII-XII intact - Musculoskeletal Musculoskeletal: gait normal, strength equal bilaterally - Psychiatric Psychiatric: A&O x's 3, appropriate affect, intact judgment & insight - Labs CBC & Chem 7: 12/01/17 07:19 12/01/17 07:19 Labs: Abnormal Lab Results - Last 24 Hours (Table) 12/01/17 Range/Units 07:19 Total Bilirubin 1.8 H (0.2-1.3) mg/dL AST 115 H (17-59) U/L ALT 153 H (21-72) U/L Alkaline Phosphatase 291 H (38-126) U/L Total Protein 5.4 L (6.3-8.2) g/dL Albumin 3.0 L (3.5-5.0) g/dL Assessment and Plan Plan: 1. Jaundice associated with abdominal pain, secondary to common bile duct stone status post sphincterotomy and extraction of common bile duct stone. Patient to be started on liquid diet and advance as tolerated. Status post Cholecystectomy with Dr. Boone. Toradol as needed for pain control. Diet advanced to low-fat low fiber. 2. Cholelithiasis with chronic cholecystitis, with possibility off choledocholithiasis, MRCP to be done November 23, ERCP in the morning, heparin is not provided for the atrial fibrillation with the anticipated procedure tomorrow 3. Atrial fibrillation chronic with rapid ventricular rate, with recurrent episodes patient was transferred from medical floor as he did not respond atenolol 50 mg and he was transferred to telemetry in 6 floor. Patient will be started on eliquis 5 mg twice daily but held by Dr. Womack. He is to reevaluate today.. 4. Acute obstructive jaundice, monitor for common bile duct stones, monitor liver function test, MRCP, ERCP to be rescheduled 4. Asthma, mild intermittent, history without any exacerbation, on Singulair 6. History of melanoma left cheek, unknown activity 7. Hyperlipidemia, not on statins on hold secondary to elevated liver function tests 8. Hypothyroidism on levothyroxine 125 daily next 9. CAD on Imdur 60 mg daily Lipitor is held secondary to elevated liver function tests, metoprolol is increased to 50 mg daily secondary to A. fib RVR, 10. BPH on Cardura Proscar no changes made 11. GERD on maintenance Pepcid 20 mg daily and Zantac 150 milligram at bedtime 12. GI prophylaxis on maintenanc PPI DVT prophylaxis, heparin Discharge plan: Return home at [facility] on Impression and plan of care have been directed as dictated by the signing physician. Jaclyn Trammell nurse practitioner acting as scribe for signing physician.
[2017-12-01] MEDS: FAMOTIDINE 20 MG TAB PO SCH (21:10)
[2017-12-02] MEDS: LEVOTHYROXINE 137 MCG TAB PO SCH (06:19)
[2017-12-02] MEDS: FINASTERIDE 5 MG TAB PO SCH (08:04)
[2017-12-02] MEDS: HEPARIN SODIUM,PORCINE 5,000 UNIT/ML 1 ML VIAL SQ SCH (08:04)
[2017-12-02] MEDS: ISOSORBIDE MONONITRATE ER 60 MG TAB.ER.24H PO SCH (08:04)
[2017-12-02] MEDS: DILTIAZEM ORAL 30 MG TAB PO SCH (08:04)
[2017-12-02] MEDS: PANTOPRAZOLE 40 MG TABLET PO SCH (08:04)
[2017-12-02] MEDS: METOPROLOL SUCCINATE (ER) 50 MG TAB.ER.24H PO SCH (08:04)
[2017-12-02] MEDS: MONTELUKAST 10 MG TAB PO SCH (08:04)
[2017-12-02 08:34] VITALS: BP 124/64; PULSE 63; RESP 18; TEMP 98.6
[2017-12-02] MEDS ORDERED: DOXAZOSIN 4 MG TAB PO SCH (09:00)
[2017-12-02] MEDS ORDERED: APIXABAN 2.5 MG TABLET PO SCH (09:30)
--- NOTE | 2017-12-02 11:58 | PN ---
PROGRESS NOTE This is an 87-year-old gentleman who underwent cholecystectomy day before yesterday. He has atrial fibrillation, paroxysmal nature. Right now he is in sinus rhythm. Blood pressure today is 120/80, pulse rate 64 per minute. Sinus, S1, S2 heard normally, short systolic murmur noted. Lungs are clear. Abdomen is soft. The rest of physical examination unchanged. I explained to the patient that he needs to be on anticoagulation. Will start him on Eliquis at a lower dose of 2.5 mg b.i.d. given the fact he is 87 years of age and also had a recent surgery. He will follow up with Dr. Chamorro who saw him in the hospital and this will be in the next 2 weeks. Advised to continue his other medications as before and patient can be discharged today. I discussed my thoughts in detail with the patient. Thank you very much for the consult. MERLENEL / JAYN: [id number] /
--- NOTE | 2017-12-03 09:27 | P.DS ---
Providers Date of admission: 11/22/17 14:23 Expected date of discharge: 12/02/17 Attending physician: Cheli Wooten Consults: 11/22/17 14:23 Consult Physician Urgent Consulting Provider: Lila Corcoran Consult Reason/Comments: Cholelithiasis, elevated liver enzymes Do you want consulting provider notified?: Yes 11/23/17 11:06 Consult Physician Routine Consulting Provider: Kam Womack Consult Reason/Comments: afib rv r Do you want consulting provider notified?: Yes Primary care physician: [facility] Course: his is an 87-year-old gentleman patient of Dr. Perla. 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 Pain has been there for the past 1-1/2 weeks , with diminished appetite no fried fatty food intolerance, patient has pain across the subcostal area bilaterally left upper quadrant and right upper quadrant area, patient did not seek any consultation for this at all, and subsequently was seen in emergency room for evaluation. Patient was noted to be jaundice, with elevated liver function tests and alkaline phosphatase Total bili was 4.4, AST 222, ALT of 252, alkaline phosphatase 248 on the ER labs. Patient denies any fever no chills no hepato-masses, no melena, hematochezia, patient denies any alcohol intake, Emergency room, ultrasound shows multiple fundal gallstones with mildly thickened gallbladder wall, common bile duct is within normal limits 0.4 centimeter, hepatic steatosis noted patient was admitted with consultations to Dr. Peck, gastrology on my evaluation. Patient was noted to be in atrial fibrillation with rapid ventricular rate, additional atenolol 25 mg was given this morning, however patient goes into the 150s with ambulation, patient was transferred to medical floor with Cardizem drip and consultation to cardiology patient is on aspirin only for anticoagulation, patient is not on any other blood thinners 11/24: Patient's heart rate remains at 115. Patient received a one-time dose of metoprolol 25 mg oral and has been on 25 mg daily. TSH is 7.3 and levothyroxine increased 137 g. Liver function tests are improving. Dr. Peck is planning for ERCP. 11/25: The patient is also followed by Dr. Boone. Patient is scheduled for ERCP today but then this was rescheduled. Cardiology has changed his extended release metoprolol to Lopressor 50 mg 3 times daily. Heart rate has been running between 99 and 120 Potassium will be replaced. 11/26: Patient is alert episode of A. fib with RVR in the 120s and 1 teens and ERCP scheduled for today has been canceled by anesthesia. Dr. Capps as ordered IV Lasix 5 mg every 4 hours and hold for systolic blood pressure less than 90. On Wednesday when he is rescheduled for ERCP, patient is to have a dose of 5 AM and another prior to procedure. Heart rate is now 93-100. We will add in physical therapy for possible need for subacute rehab. Liver function tests are improving from previous with total bilirubin 1.7, ALT 137 alkaline phosphatase 181. 11/29: Patient is feeling tired and weak. He denies any shortness of breath. He states he has been up to the bathroom twice. He denies any lightheadedness. He does state he had abdominal pain last night but is gone at the time of our evaluation. He denies any nausea vomiting or diarrhea. His last bowel movement was yesterday and he denies any dark stools. 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 ERCP was done by Dr. Boykin which revealed normal papilloma and pancreatic duct. Common bile slightly dilated with filling defect consistent with common bile duct stone. Successful sphincterotomy and extraction of common bile duct stone. Patient was allowed liquid diet and advance as tolerated. Patient will be transferred to [facility] floor today. 11/30: Liver enzymes are elevated from yesterday. Dr. Boone is planning for laparoscopic cholecystectomy this afternoon. Patient remains off anticoagulation and cardiology as recommended. We will start eliquis following surgery. Anticipate possible discharge by tomorrow. Patient denies having lightheadedness or dizziness. Physical therapy has recommended home. 12/01: Patient had excruciating pain following his laparoscopic cholecystectomy yesterday. Dr. Boone took his drain out. His pain is currently controlled and Toradol seemed to be quite effective. Patient received a dose of morphine this morning and is too sedated. We will discontinue morphine altogether and change Toradol to as needed. IV fluids discontinued. Diet for lunch is to be low-fat low fiber. Anticipate discharge home tomorrow. 12/02: Patient denies any abdominal pain, nausea or vomiting. Patient is able dry without any difficulties. We are planning to discontinue aspirin and Lipitor. Patient will be maintained on eliquis for discharge. At the time of discharge, AST is 1:15, ALT 153, alkaline phosphatase is 291 and these are all improved from yesterday. Patient will be discharged home in stable condition. Discharge diagnoses: 1. Jaundice associated with abdominal pain, secondary to common bile duct stone status post sphincterotomy and extraction of common bile duct stone. Status post Cholecystectomy 2. Cholelithiasis with chronic cholecystitis, with possibility of choledocholithiasis 3. Atrial fibrillation chronic with rapid ventricular rate, with recurrent episodes 4. Acute obstructive jaundice 4. Asthma, mild intermittent, history without any exacerbation 6. History of melanoma left cheek 7. Hyperlipidemia 8. Hypothyroidism 9. CAD 10. BPH 11. GERD 1 Discharge plan: Return home at [facility] Impression and plan of care have been directed as dictated by the signing physician. Jaclyn Trammell nurse practitioner acting as scribe for signing physician. Patient Condition at Discharge: Good Plan - Discharge Summary New Discharge Prescriptions: New Apixaban [Eliquis] 2.5 mg PO BID tablet Diltiazem Oral [Cardizem*] 30 mg PO TID #90 tab Metoprolol Succinate (ER) [Toprol Xl] 100 mg PO DAILY #30 tab Continue Montelukast [Singulair] 10 mg PO DAILY Levothyroxine Sodium [Synthroid] 125 mcg PO DAILY Doxazosin [Cardura] 4 mg PO DAILY Glucosamine Sulfate 500 mg PO DAILY Isosorbide Mononitrate ER [Imdur] 60 mg PO DAILY Nitroglycerin Sl Tabs [Nitrostat] 0.4 mg SUBLINGUAL Q5M PRN PRN Reason: Chest Pain Omeprazole [PriLOSEC] 20 mg PO AC-BRKFST Chondroitin Sulfate 150 mg PO DAILY Ferrous Sulfate [Iron (65 MG Elemental)] 325 mg PO TID Finasteride [Proscar] 5 mg PO DAILY Ranitidine HCl 150 mg PO HS Discontinued Aspirin EC [Ecotrin Low Dose] 81 mg PO DAILY Atorvastatin Calcium [Lipitor] 20 mg PO DAILY Metoprolol Succinate [Toprol XL] 25 mg PO DAILY Discharge Medication List Levothyroxine Sodium [Synthroid] 125 mcg PO DAILY 08/01/14 [History] Montelukast [Singulair] 10 mg PO DAILY 08/01/14 [History] Doxazosin [Cardura] 4 mg PO DAILY 11/10/16 [History] Glucosamine Sulfate 500 mg PO DAILY 11/10/16 [History] Isosorbide Mononitrate ER [Imdur] 60 mg PO DAILY 11/10/16 [History] Nitroglycerin Sl Tabs [Nitrostat] 0.4 mg SUBLINGUAL Q5M PRN 11/10/16 [History] Omeprazole [PriLOSEC] 20 mg PO AC-BRKFST 11/10/16 [History] Chondroitin Sulfate 150 mg PO DAILY 11/22/17 [History] Ferrous Sulfate [Iron (65 MG Elemental)] 325 mg PO TID 11/22/17 [History] Finasteride [Proscar] 5 mg PO DAILY 11/22/17 [History] Ranitidine HCl 150 mg PO HS 11/22/17 [History] Apixaban [Eliquis] 2.5 mg PO BID tablet 12/02/17 [Rx] Diltiazem Oral [Cardizem*] 30 mg PO TID #90 tab 12/02/17 [Rx] Metoprolol Succinate (ER) [Toprol Xl] 100 mg PO DAILY #30 tab 12/02/17 [Rx] Follow up Appointment(s)/Referral(s): Lance Chamorro MD [STAFF PHYSICIAN] - 2 Weeks (office will call patient with date and time of appt) Herberth Perla MD [Primary Care Provider] - 12/09/17 1:30 pm Kimberly Boone DO [Doctor of Osteopathic Medicine] - 12/13/17 3:00 pm Discharge Disposition: HOME SELF-CARE
== END 2017-12-02 11:15 | disposition home or self-care (01) | DRG 418 ==
LOC: EC 10:15 → 5MS5E 14:23 → 6SEL 11-23 20:12 → 5MS5E 11-29 14:09
PROVIDERS: ADMIT Family Medicine; ATTEND Family Medicine
PROC: 0FC98ZZ Extirpation of Matter from Common Bile Duct, Via Natural or Artificial Opening Endoscopic (ICD-10-PCS; principal; 2017-11-29 16:00)
PROC: 0FT44ZZ Resection of Gallbladder, Percutaneous Endoscopic Approach (ICD-10-PCS; 2017-11-30)
DX: K80.67 Calculus of gallbladder and bile duct with acute and chronic cholecystitis with obstruction (principal); E44.0 Moderate protein-calorie malnutrition; I48.0 Paroxysmal atrial fibrillation; I48.2 Chronic atrial fibrillation; E03.9 Hypothyroidism, unspecified; E78.5 Hyperlipidemia, unspecified; I10 Essential (primary) hypertension; I48.1 Persistent atrial fibrillation; I25.10 Atherosclerotic heart disease of native coronary artery without angina pectoris; J45.20 Mild intermittent asthma, uncomplicated; K21.9 Gastro-esophageal reflux disease without esophagitis; K76.0 Fatty (change of) liver, not elsewhere classified; N40.0 Benign prostatic hyperplasia without lower urinary tract symptoms; Z53.9 Procedure and treatment not carried out, unspecified reason; Z79.01 Long term (current) use of anticoagulants; Z79.82 Long term (current) use of aspirin; Z79.899 Other long term (current) drug therapy; Z80.0 Family history of malignant neoplasm of digestive organs; Z80.42 Family history of malignant neoplasm of prostate; Z82.49 Family history of ischemic heart disease and other diseases of the circulatory system; Z85.820 Personal history of malignant melanoma of skin; Z87.891 Personal history of nicotine dependence; Z79.890 Hormone replacement therapy
CPT/HCPCS: 36415; 43260; 43262; 43264; 74018; 74181; 74328; 76705; 80048; 80053; 80074; 80076; 81001; 82150; 83690; 83735; 84439; 84443; 85025; 85610; 88304; 93005; 94760; 96361; 96374; 96375; 99285

== ENCOUNTER 2017-12-14 11:14 | Inpatient (IN) | payer MEDICARE ==
[2017-12-14] MEDS ORDERED: METOPROLOL TARTRATE 5 MG/5 ML VIAL IVP PRN (12:03)
[2017-12-14 12:05] LABS: Basophils % (A) 0 %; Eosinophils # (A) 0.2 k/uL (0-0.7); Eosinophils % (A) 3 %; HCT 39.5 % (39.0-53.0); HGB 12.9 gm/dL (13.0-17.5); Lymphocytes # (A) 0.6 k/uL (1.0-4.8); Lymphocytes % (A) 7 %; MCHC 32.7 g/dL (31.0-37.0); MCV 88.8 fL (80.0-100.0); Mean Platelet Volume 7.6; Monocytes # (A) 0.5 k/uL (0-1.0); Monocytes % (A) 5 %; Neutrophils # (A) 7.2 k/uL (1.3-7.7); Neutrophils % (A) 83 %; Platelet Count 325 k/uL (150-450); RBC 4.45 m/uL (4.30-5.90); RDW 13.5 % (11.5-15.5); WBC 8.7 k/uL (3.8-10.6)
[2017-12-14 12:16] LABS: INR 1.2 (<1.2); Partial Thromboplastin Time 23.6 sec (22.0-30.0); Prothrombin Time 11.4 sec (9.0-12.0)
[2017-12-14 12:17] LABS: Albumin 3.6 g/dL (3.5-5.0); Calcium 9.5 mg/dL (8.4-10.2); Potassium 4.9 mmol/L (3.5-5.1); Total Bilirubin 0.9 mg/dL (0.2-1.3); Total Protein 6.3 g/dL (6.3-8.2)
[2017-12-14 12:18] LABS: Magnesium 1.8 mg/dL (1.6-2.3)
--- NOTE | 2017-12-14 12:22 | XR ---
EXAMINATION TYPE: XR chest 2V DATE OF EXAM: 12/14/2017 COMPARISON: NONE HISTORY: Chest pain TECHNIQUE: Frontal and lateral views of the chest are obtained. FINDINGS: There is no focal air space opacity, pleural effusion, or pneumothorax seen. The cardiac silhouette size is within normal limits. The osseous structures are intact. Enlargement of the diomedes r vasculature may represent underlying pulmonary arterial hypertension. A moderate-sized hiatal herni a is noted. IMPRESSION: 1. No acute cardiopulmonary process. 2. Hilar vascular enlargement may represent underlying pulmonary arterial hypertension. 3. Moderate hiatal hernia.
[2017-12-14 12:24] LABS: Creatine Kinase 49 U/L (55-170)
[2017-12-14 12:36] LABS: Creatine Kinase MB 0.8 ng/mL (0.0-2.4); Troponin I <0.012 ng/mL (0.000-0.034)
[2017-12-14] MEDS ORDERED: SODIUM CHLORIDE 0.9% 1,000 ML IV ONE (12:45)
--- NOTE | 2017-12-14 14:34 | ED ---
Chest Pain HPI - General Chief Complaint: Chest Pain Stated Complaint: racing heart sent by PCP Time Seen by Provider: 12/14/17 11:30 Source: patient, family Mode of arrival: ambulatory Limitations: no limitations - History of Present Illness Initial Comments: 7 years old gentleman now was back to his primary care's office Dr. Brandt Perla call me he sat down he is in A. fib with RVR, his heart rate was 1:30 and his blood pressure was also high 80s at time he also complaining about chest pain on arrival to the ER he said his chest pain has resolved me his heart rate was fluctuating from 120-140 he denied any chest pain he denies any pleuritic chest pain no abdominal pain though he recently had just had a gallbladder surgery denies any frequency urgency dysuria denies any symptoms of CVA or TIA - Related Data Home Medications Medication Instructions Recorded Confirmed Levothyroxine Sodium [Synthroid] 125 mcg PO DAILY 08/01/14 12/14/17 Montelukast [Singulair] 10 mg PO DAILY 08/01/14 12/14/17 Doxazosin [Cardura] 4 mg PO DAILY 11/10/16 12/14/17 Glucosamine Sulfate 500 mg PO DAILY 11/10/16 12/14/17 Isosorbide Mononitrate ER [Imdur] 60 mg PO DAILY 11/10/16 12/14/17 Nitroglycerin Sl Tabs [Nitrostat] 0.4 mg SUBLINGUAL Q5M PRN 11/10/16 11/22/17 Omeprazole [PriLOSEC] 20 mg PO AC-BRKFST 11/10/16 12/14/17 Chondroitin Sulfate 150 mg PO DAILY 11/22/17 12/14/17 Ferrous Sulfate [Iron (65 MG 325 mg PO TID 11/22/17 12/14/17 Elemental)] Finasteride [Proscar] 5 mg PO DAILY 11/22/17 12/14/17 Ranitidine HCl 150 mg PO HS 11/22/17 11/22/17 Previous Rx's Medication Instructions Recorded Apixaban [Eliquis] 2.5 mg PO BID tablet 12/02/17 Diltiazem Oral [Cardizem*] 30 mg PO TID #90 tab 12/02/17 Metoprolol Succinate (ER) [Toprol 100 mg PO DAILY #30 tab 12/02/17 Xl] Allergies Allergy/AdvReac Type Severity Reaction Status Date / Time No Known Allergies Allergy Verified 12/14/17 11:55 Review of Systems ROS Statement: Those systems with pertinent positive or pertinent negative responses have been documented in the HPI. ROS Other: All systems not noted in ROS Statement are negative. EKG Findings - EKG Comments: EKG Findings:: Him EKG is atrial flutter with a variable A-V block, ventricular rate is 16 IN interval, QRS duration is 70 QT/QTc is 346/459 review of this EKG reveal low voltage QRS complexes apart from that down no significant ST depression or ST elevation noticed Past Medical History Past Medical History: Asthma, Hyperlipidemia, Hypertension, Prostate Disorder, Thyroid Disorder History of Any Multi-Drug Resistant Organisms: None Reported Past Surgical History: Adenoidectomy, Back Surgery, Hernia Repair, Tonsillectomy Additional Past Surgical History / Comment(s): left kidney removal, thyroid, cataracts Past Psychological History: Depression Smoking Status: Former smoker Past Alcohol Use History: Rare Past Drug Use History: None Reported General Exam - General Exam Comments Initial Comments: General: The patient is awake and alert, in no distress, and does not appear acutely ill. He is very sharp GCS is 15 Skin: Skin is warm and dry and no rashes or lesions are noted. Eye: Pupils are equal, round and reactive to light, extra-ocular movements are intact; there is normal conjunctiva bilaterally. Ears, nose, mouth and throat: There are moist mucous membranes and no oral lesions. Neck: The neck is supple, there is no tenderness or JVD. Cardiovascular: Heart rate is irregularly irregular Respiratory: To auscultation revealed decreased air exchange bilateral Gastrointestinal: Soft, non-distended, non-tender abdomen without masses or organomegaly noted. There is no rebound or guarding present. Bowel sounds are unremarkable. Back: There is no tenderness to palpation in the midline. There is no obvious deformity. Musculoskeletal: Normal ROM, no tenderness, There is no pedal edema. There is no calf tenderness or swelling. No cords were appreciated. Neurological: CN II-XII intact, Cranial nerves III through XII are intact. There are no obvious motor or sensory deficits. Coordination appears grossly intact. Speech is normal. Psychiatric: Cooperative, appropriate mood & affect, normal judgment. Limitations: no limitations Course Vital Signs 12/14/17 12/14/17 12/14/17 11:20 12:28 12:44 Temperature 97.8 F Pulse Rate 80 111 H 108 H Respiratory 20 18 18 Rate Blood Pressure 116/76 87/63 84/52 O2 Sat by Pulse 98 99 99 Oximetry 12/14/17 12/14/17 13:19 13:58 Temperature Pulse Rate 99 101 H Respiratory 18 18 Rate Blood Pressure 98/71 106/78 O2 Sat by Pulse 98 97 Oximetry Critical Care Time Total Critical Care Time: 30 Critical Care Time: On-call came in with the tachycardia heart rate about 130 and a blood pressure high 80s, we gave him some mild fluids and was planning to do some Cardizem but mainly a Cardizem negative inotropic blood pressure was not strong enough we just gave him a fluid bolus that did drop the heart rate down to 101 and his troponin is unremarkable his chest x-rays unremarkable he couldn't handle some more fluids any sore on oral beta blockers began about him in the hospital will have a cardiology see him, initially I ordered metoprolol 2.5 mg IV but term neb considering his blood pressure went below 100 systolic we held that back Disposition Clinical Impression: Atrial fibrillation with RVR, Hypotension Disposition: ADMITTED IP TO THIS HOSP Condition: Good Referrals: Herberth Perla MD [Primary Care Provider] - 1-2 days
[2017-12-14] MEDS ORDERED: NITROGLYCERIN SL TABS 0.4 MG TAB SUBLINGUAL PRN (14:36)
--- NOTE | 2017-12-14 15:27 | P.HPIM ---
History of Present Illness H&P Date: 12/14/17 Chief Complaint: A. fib with RVR. This is an 87-year-old male one of Dr. perla with a previous medical history significant for hypertension and hypertensive cardiovascular disease, CAD post PCI, hyperlipidemia, atrial fibrillation, benign prostatic hypertrophy , left cheek melanoma, patient was recently hospitalized at [facility] after he was admitted for an acute cholelithiasis with cholecystitis and possible common bile duct stone and he ended up having laparoscopic cholecystectomy that was done successfully by Dr. Boone, patient was discharged home and he went to [facility] patient was supposed to go a follow-up with Dr. Perla today in the office and he was in atrial fibrillation with rapid ventricular response and the patient was quite wobbly so he ended up the sending the patient to the emergency department at [facility] where he was found to be in atrial fibrillation with RVR and the patient blood pressure was borderline he was given an extra dose of Lopressor IV and he was kept in his Cardizem and Lopressor was admitted to the hospital, he was kept on Eliquis 2.5 mg orally twice every day and he would be seen in consultation by cardiology. Review of Systems Constitutional: Reports weakness, Denies anorexia, Denies chronic headaches, Denies chronic pain, Denies fever, Denies malaise, Denies weight gain Eyes: denies blurred vision, denies bulging eye, denies decreased vision Ears: bilateral: decreased hearing Ears, nose, mouth and throat: Denies dysphagia, Denies neck lump, Denies swelling in throat, Denies sore throat Cardiovascular: Reports decreased exercise tolerance, Reports dyspnea on exertion, Reports high blood pressure, Reports irregular heart beat, Reports rapid heart beat, Reports shortness of breath, Denies chest pain, Denies leg edema, Denies paroxysmal nocturnal dyspnea, Denies syncope Respiratory: Reports dyspnea, Denies congestion, Denies cough, Denies cough with sputum, Denies sleep apnea, Denies snoring, Denies wheezing Gastrointestinal: Denies abdominal pain, Denies excessive gas, Denies melena, Denies nausea, Denies vomiting Genitourinary: Reports nocturia, Denies dysuria Musculoskeletal: Reports gait dysfunction Musculoskeletal: absent: ankle pain, ankle stiffness, ankle swelling, elbow pain , elbow stiffness, elbow swelling, foot pain, foot stiffness, foot swelling, hand pain, hand stiffness, hand swelling, hip pain, hip stiffness, hip swelling , knee pain, knee stiffness, knee swelling, shoulder pain, shoulder stiffness, shoulder swelling, wrist pain, wrist stiffness, wrist swelling Integumentary: Denies pruritus, Denies rash Neurological: Reports balance difficulties, Reports gait dysfunction, Denies numbness, Denies weakness Psychiatric: Denies anxiety, Denies depression Endocrine: Denies fatigue, Denies weight change Past Medical History Past Medical History: Atrial Fibrillation, Asthma, Coronary Artery Disease (CAD) , GERD/Reflux, Hyperlipidemia, Hypertension, Osteoarthritis (OA), Prostate Disorder, Thyroid Disorder History of Any Multi-Drug Resistant Organisms: None Reported Past Surgical History: Adenoidectomy, Back Surgery, Cholecystectomy, Heart Catheterization With Stent, Hernia Repair, Tonsillectomy Additional Past Surgical History / Comment(s): Bilateral cataract surgery, tonsillectomy and adenoidectomy, laparoscopic cholecystectomy, right hernia repair with mesh, left nephrectomy with a history of nephritis, right arthroscopic knee surgery, strabismus, left heart catheterization with PCI, back surgery, thyroid surgery. Past Psychological History: Depression Smoking Status: Former smoker (patient used to smoke about a pack every day start smoking at the age of 13 and quit 23, he drinks occasionally but he has not has a drink in a long time he denied any caffeinated beverages.) Past Alcohol Use History: Rare Past Drug Use History: None Reported - Past Family History Mother Family Medical History: Cancer (mother at age 75 from gallbladder cancer.) Father Family Medical History: CVA/TIA (father at age of 88 from old age he also had CVA .) Brother(s) Family Medical History: Osteoarthritis (OA) (patient has one brother 10 years younger with history of osteoarthritis.) Son(s) Family Medical History: No Reported History (patient has 2 sons no major medical problems.) Daughter(s) Family Medical History: No Reported History (patient has one daughter no major medical problems.) Medications and Allergies Home Medications Medication Instructions Recorded Confirmed Type Levothyroxine Sodium [Synthroid] 125 mcg PO DAILY 08/01/14 12/14/17 History Montelukast [Singulair] 10 mg PO DAILY 08/01/14 12/14/17 History Doxazosin [Cardura] 4 mg PO DAILY 11/10/16 12/14/17 History Glucosamine Sulfate 500 mg PO DAILY 11/10/16 12/14/17 History Isosorbide Mononitrate ER [Imdur] 60 mg PO DAILY 11/10/16 12/14/17 History Nitroglycerin Sl Tabs [Nitrostat] 0.4 mg SUBLINGUAL Q5M PRN 11/10/16 11/22/17 History Omeprazole [PriLOSEC] 20 mg PO AC-BRKFST 11/10/16 12/14/17 History Chondroitin Sulfate 150 mg PO DAILY 11/22/17 12/14/17 History Ferrous Sulfate [Iron (65 MG 325 mg PO TID 11/22/17 12/14/17 History Elemental)] Finasteride [Proscar] 5 mg PO DAILY 11/22/17 12/14/17 History Ranitidine HCl 150 mg PO HS 11/22/17 11/22/17 History Apixaban [Eliquis] 2.5 mg PO BID tablet 12/02/17 12/14/17 Rx Diltiazem Oral [Cardizem*] 30 mg PO TID #90 tab 12/02/17 12/14/17 Rx Metoprolol Succinate (ER) [Toprol 100 mg PO DAILY #30 tab 12/02/17 12/14/17 Rx Xl] Allergies Allergy/AdvReac Type Severity Reaction Status Date / Time No Known Allergies Allergy Verified 12/14/17 11:55 Physical Exam Vitals: Vital Signs Temp Pulse Resp BP Pulse Ox 12/14/17 14:51 97.8 F 113 H 18 105/69 97 12/14/17 13:58 101 H 18 106/78 97 12/14/17 13:19 99 18 98/71 98 12/14/17 12:44 108 H 18 84/52 99 12/14/17 12:28 111 H 18 87/63 99 12/14/17 11:20 97.8 F 80 20 116/76 98 Intake and Output 12/14/17 12/14/17 12/14/17 06:59 14:59 22:59 Other: Weight 77.111 kg - Constitutional General appearance: average body habitus, no acute distress - EENT Eyes: anicteric sclerae, EOMI, PERRLA, no photophobia, no ptosis, no scleral icterus, normal appearance ENT: hearing grossly normal, NA/AT, normal oropharynx Ears: bilateral: normal - Neck Neck: no lymphadenopathy, normal ROM, no stridor Carotids: bilateral: upstroke normal - Respiratory Respiratory: bilateral: diminished, negative: dullness, rales, rhonchi, wheezing , prolonged expiration - Cardiovascular Rhythm: irregularly irregular Heart sounds: normal: S1, S2 Abnormal Heart Sounds: systolic murmur - Gastrointestinal General gastrointestinal: normal bowel sounds, soft, no splenomegaly, no tenderness, no umbilical hernia, no ventral hernia - Integumentary Integumentary: normal, normal turgor - Musculoskeletal Musculoskeletal: generalized weakness, strength equal bilaterally - Psychiatric Psychiatric: A&O x's 3, appropriate affect, intact judgment & insight Results CBC & Chem 7: 12/14/17 11:55 12/14/17 11:55 Labs: Abnormal Lab Results - Last 24 Hours (Table) 12/14/17 12/14/17 12/14/17 Range/Units 11:55 11:55 11:55 Hgb 12.9 L (13.0-17.5) gm/dL Lymphocytes # 0.6 L (1.0-4.8) k/uL INR (<1.2) Glucose 101 H (74-99) mg/dL Total Creatine Kinase 49 L (55-170) U/L 12/14/17 Range/Units 11:55 Hgb (13.0-17.5) gm/dL Lymphocytes # (1.0-4.8) k/uL INR 1.2 H (<1.2) Glucose (74-99) mg/dL Total Creatine Kinase (55-170) U/L Thrombosis Risk Factor Assmnt - DVT/VTE Prophylaxis DVT/VTE Prophylaxis: Pharmacologic Prophylaxis ordered, Mechanical Prophylaxis ordered Assessment and Plan Assessment: Assessment and plan: 1. Atrial fibrillation with rapid response. Continue patient on metoprolol 100 mg orally once every day, increase his Cardizem to 60 mg orally 3 times every day, continue Eliquis 2.5 mg orally once every day, cardiac enzymes 3, patient did have an echocardiogram last hospital admission , we will try to adjust his medication so the patient can be discharged next 24 hours. 2. CAD post-PCI. Continue patient on baby aspirin 81 mg once every day, Imdur 60 mg orally once every day, Toprol-XL 100 mg orally once every day. 3. Hypertension and hypertensive cardio vascular disease. Continue patient on Toprol-XL 100 mg orally once every day and Cardizem 60 mg orally 3 times every day. 4. Status post recent laparoscopic cholecystectomy for cholecystitis with possible common bile duct stone that has resolved. 5. Enlarged prostate. Discontinue Doxazosin and will continue with Proscar 5 mg orally once every day. 6. Mild intermittent asthma. Stable at this time continue patient on singular 10 mg orally once every day. 7. Hypothyroidism. Continue patient on levothyroxin 125 g orally once every day. 8. Mild anemia. Continue iron. 9. DVT prophylaxis. Continue patient on Eliquis 2.5 mg orally twice every day. 10. GI prophylaxis. Continue patient on Protonix 40 mg orally once every day. 11. Patient is observation. 12. Hopefully will be discharged home in the next 24 hours.
[2017-12-14] MEDS ORDERED: FERROUS SULFATE 325 MG TAB PO SCH (16:00)
[2017-12-14] MEDS ORDERED: DILTIAZEM ORAL 30 MG TAB PO SCH (16:00)
[2017-12-14] MEDS: DILTIAZEM ORAL 60 MG TAB PO SCH ×2 (17:49→21:18)
[2017-12-14 18:53] LABS: Creatine Kinase 43 U/L (55-170)
[2017-12-14 19:04] LABS: Creatine Kinase MB 0.7 ng/mL (0.0-2.4); Troponin I <0.012 ng/mL (0.000-0.034)
[2017-12-14] MEDS: APIXABAN 2.5 MG TABLET PO SCH (21:17)
[2017-12-15 00:48] LABS: Creatine Kinase 38 U/L (55-170)
[2017-12-15 01:03] LABS: Creatine Kinase MB 0.6 ng/mL (0.0-2.4); Troponin I <0.012 ng/mL (0.000-0.034)
[2017-12-15] MEDS ORDERED: LEVOTHYROXINE 125 MCG TAB PO SCH (06:30)
[2017-12-15] MEDS ORDERED: PANTOPRAZOLE 40 MG TABLET PO SCH (07:30)
[2017-12-15 08:15] VITALS: BP 123/76; RESP 16; TEMP 97
[2017-12-15] MEDS: APIXABAN 2.5 MG TABLET PO SCH (08:15)
[2017-12-15] MEDS: DILTIAZEM ORAL 60 MG TAB PO SCH (08:15)
[2017-12-15] MEDS ORDERED: MONTELUKAST 10 MG TAB PO SCH (09:00)
[2017-12-15] MEDS ORDERED: DOXAZOSIN 4 MG TAB PO SCH (09:00)
[2017-12-15] MEDS ORDERED: ISOSORBIDE MONONITRATE ER 60 MG TAB.ER.24H PO SCH (09:00)
[2017-12-15] MEDS ORDERED: FINASTERIDE 5 MG TAB PO SCH (09:00)
[2017-12-15] MEDS ORDERED: METOPROLOL SUCCINATE (ER) 100 MG TAB.ER.24H PO SCH (09:00)
--- NOTE | 2017-12-15 10:36 | P.CRDCN ---
History of Present Illness Consult date: 12/15/17 History of present illness: This is a pleasant 87-year-old gentleman with a past medical history significant for chronic atrial fibrillation, hypertension, and dyslipidemia, was brought from [facility] to the hospital because of increasing heart rate. The patient underwent recently a cholecystectomy. Subsequently he was transferred to [facility]. It was noticed that the patient heart rate was in alleviated. Clinically, the patient did not complain from any chest pain or chest discomfort, difficulty breathing, feeling of heart racing or fluttering, dizziness or lightheadedness, or syncope. As a matter of fact he is quite frustrated that he is in the hospital and he would like to be discharged home. Hemodynamically, he is in atrial fibrillation with controlled heart rate on the current dose of metoprolol as well as Cardizem. Beside that he is on oral anticoagulation. From a cardiovascular standpoint overview, patient can be discharged home. Past Medical History Past Medical History: Atrial Fibrillation, Asthma, Coronary Artery Disease (CAD) , GERD/Reflux, Hyperlipidemia, Hypertension, Osteoarthritis (OA), Prostate Disorder, Thyroid Disorder Additional Past Medical History / Comment(s): AFib with RVR, BPH, hypothyroid, L cheek melanoma/removed. History of Any Multi-Drug Resistant Organisms: None Reported Past Surgical History: Adenoidectomy, Back Surgery, Cholecystectomy, Heart Catheterization With Stent, Hernia Repair, Tonsillectomy Additional Past Surgical History / Comment(s): Bilateral cataract surgery, tonsillectomy and adenoidectomy, laparoscopic cholecystectomy, right hernia repair with mesh, left nephrectomy with a history of nephritis, right arthroscopic knee surgery, strabismus, left heart catheterization with PCI, back surgery, thyroid surgery. Past Anesthesia/Blood Transfusion Reactions: No Reported Reaction Past Psychological History: Depression Smoking Status: Former smoker (patient used to smoke about a pack every day start smoking at the age of 13 and quit 23, he drinks occasionally but he has not has a drink in a long time he denied any caffeinated beverages.) Past Alcohol Use History: Rare Past Drug Use History: None Reported - Past Family History Father Family Medical History: CVA/TIA (father at age of 88 from old age he also had CVA .) Additional Family Medical History / Comment(s): Father in his late 80s from a CVA Mother Family Medical History: Cancer (mother at age 75 from gallbladder cancer.) Additional Family Medical History / Comment(s): Mother of gallbladder cancer in her mid 70's. Brother(s) Family Medical History: Osteoarthritis (OA) (patient has one brother 10 years younger with history of osteoarthritis.) Son(s) Family Medical History: No Reported History (patient has 2 sons no major medical problems.) Daughter(s) Family Medical History: No Reported History (patient has one daughter no major medical problems.) Medications and Allergies Home Medications Medication Instructions Recorded Confirmed Type Levothyroxine Sodium [Synthroid] 125 mcg PO DAILY 08/01/14 12/14/17 History Montelukast [Singulair] 10 mg PO DAILY 08/01/14 12/14/17 History Doxazosin [Cardura] 4 mg PO DAILY 11/10/16 12/14/17 History Glucosamine Sulfate 500 mg PO DAILY 11/10/16 12/14/17 History Isosorbide Mononitrate ER [Imdur] 60 mg PO DAILY 11/10/16 12/14/17 History Nitroglycerin Sl Tabs [Nitrostat] 0.4 mg SUBLINGUAL Q5M PRN 11/10/16 11/22/17 History Omeprazole [PriLOSEC] 20 mg PO AC-BRKFST 11/10/16 12/14/17 History Chondroitin Sulfate 150 mg PO DAILY 11/22/17 12/14/17 History Ferrous Sulfate [Iron (65 MG 325 mg PO TID 11/22/17 12/14/17 History Elemental)] Finasteride [Proscar] 5 mg PO DAILY 11/22/17 12/14/17 History Ranitidine HCl 150 mg PO HS 11/22/17 11/22/17 History Apixaban [Eliquis] 2.5 mg PO BID tablet 12/02/17 12/14/17 Rx Diltiazem Oral [Cardizem*] 30 mg PO TID #90 tab 12/02/17 12/14/17 Rx Metoprolol Succinate (ER) [Toprol 100 mg PO DAILY #30 tab 12/02/17 12/14/17 Rx Xl] Allergies Allergy/AdvReac Type Severity Reaction Status Date / Time No Known Allergies Allergy Verified 12/14/17 11:55 Physical Exam Vitals: Vital Signs Temp Pulse Pulse Resp BP BP Pulse Ox 12/15/17 08:10 97 F L 100 16 123/76 97 12/15/17 04:00 97.0 F L 72 18 120/75 96 12/15/17 00:00 97.2 F L 75 18 110/83 98 12/14/17 20:00 97.3 F L 110 H 18 118/85 98 12/14/17 17:10 18 12/14/17 16:50 98.0 F 103 H 18 138/71 98 12/14/17 15:30 98 18 115/80 97 12/14/17 14:51 97.8 F 113 H 18 105/69 97 12/14/17 13:58 101 H 18 106/78 97 12/14/17 13:19 99 18 98/71 98 12/14/17 12:44 108 H 18 84/52 99 12/14/17 12:28 111 H 18 87/63 99 12/14/17 11:20 97.8 F 80 20 116/76 98 Intake and Output 12/14/17 12/15/17 12/15/17 22:59 06:59 14:59 Output Total 50 Balance -50 Output: Urine 50 Other: Voiding Method Urinal # Voids 1 Weight 75 kg - Constitutional General appearance: no acute distress - Respiratory Respiratory: bilateral: CTA - Cardiovascular Rhythm: irregularly irregular Heart sounds: normal: S1, S2 Results 12/14/17 11:55 12/14/17 11:55 Cardiac Enzymes 12/14/17 12/14/17 12/14/17 Range/Units 11:55 11:55 18:18 AST 29 (17-59) U/L CK-MB (CK-2) 0.8 0.7 (0.0-2.4) ng/mL Troponin I <0.012 <0.012 (0.000-0.034) ng/mL 12/14/17 Range/Units 23:52 AST (17-59) U/L CK-MB (CK-2) 0.6 (0.0-2.4) ng/mL Troponin I <0.012 (0.000-0.034) ng/mL Coagulation 12/14/17 Range/Units 11:55 PT 11.4 (9.0-12.0) sec APTT 23.6 (22.0-30.0) sec Lipids 12/14/17 Range/Units 11:55 Triglycerides 93 (<150) mg/dL Cholesterol 157 (<200) mg/dL HDL Cholesterol 44 (40-60) mg/dL CBC 12/14/17 Range/Units 11:55 WBC 8.7 (3.8-10.6) k/uL RBC 4.45 (4.30-5.90) m/uL Hgb 12.9 L (13.0-17.5) gm/dL Hct 39.5 (39.0-53.0) % Plt Count 325 (150-450) k/uL Comprehensive Metabolic Panel 12/14/17 Range/Units 11:55 Sodium 143 (137-145) mmol/L Potassium 4.9 (3.5-5.1) mmol/L Chloride 107 (98-107) mmol/L Carbon Dioxide 22 (22-30) mmol/L BUN 17 (9-20) mg/dL Creatinine 0.88 (0.66-1.25) mg/dL Glucose 101 H (74-99) mg/dL Calcium 9.5 (8.4-10.2) mg/dL AST 29 (17-59) U/L ALT 39 (21-72) U/L Alkaline Phosphatase 114 (38-126) U/L Total Protein 6.3 (6.3-8.2) g/dL Albumin 3.6 (3.5-5.0) g/dL Current Medications Generic Name Dose Route Start Last Admin Trade Name Freq PRN Reason Stop Dose Admin Apixaban 2.5 mg 12/14/17 21:00 12/15/17 08:15 Eliquis PO 2.5 mg BID ZACHERY Administration Diltiazem HCl 60 mg 12/14/17 16:00 12/15/17 08:15 Cardizem Oral PO 60 mg TID ZACHERY Administration Ferrous Sulfate 325 mg 12/15/17 12:30 Feosol PO W/LUNCH ZACHERY Finasteride 5 mg 12/15/17 09:00 Proscar PO DAILY [facility] Isosorbide Mononitrate 60 mg 12/15/17 09:00 12/15/17 08:16 Imdur PO 60 mg DAILY ZACHERY Administration Levothyroxine Sodium 125 mcg 12/15/17 06:30 12/15/17 06:59 Synthroid PO 125 mcg DAILY@0630 ZACHERY Administration Metoprolol Succinate 100 mg 12/15/17 09:00 12/15/17 08:16 Toprol Xl PO 100 mg DAILY ZACHERY Administration Metoprolol Tartrate 2.5 mg 12/14/17 12:03 Lopressor IVP ONCE PRN A. fib with RVR Montelukast Sodium 10 mg 12/15/17 09:00 12/15/17 08:16 Singulair PO 10 mg DAILY ZACHERY Administration Nitroglycerin 0.4 mg 12/14/17 14:36 Nitrostat SUBLINGUAL Q5M PRN Chest Pain Pantoprazole Sodium 40 mg 12/15/17 07:30 12/15/17 06:59 Protonix PO 40 mg AC-BRKFST ZACHERY Administration Intake and Output 12/14/17 12/15/17 12/15/17 22:59 06:59 14:59 Output Total 50 Balance -50 Output: Urine 50 Other: Voiding Method Urinal # Voids 1 Weight 75 kg 12/14/17 11:55 12/14/17 11:55 Assessment and Plan Assessment: Assessment #1 chronic atrial fibrillation was controlled heart rate #2 systemic hypertension #3 dyslipidemia Plan #1 continue the current dose of metoprolol and Cardizem #2 continue oral anti-correlation with Eliquis. #3 follow-up with the patient. Thank you for allowing us participate in his care
[2017-12-15 11:15] VITALS: PULSE 60
[2017-12-15 11:36] VITALS: BMI 27.5
--- NOTE | 2017-12-15 12:04 | P.DS ---
Providers Date of admission: 12/14/17 14:38 Expected date of discharge: 12/15/17 Attending physician: Jovanna Montelongo Consults: 12/14/17 14:38 Consult Physician Urgent Consulting Provider: Yang Mcmahan Consult Reason/Comments: A. fib with RVR with hypotension Do you want consulting provider notified?: Yes Primary care physician: [facility] Course: This is an 87-year-old male one of Dr. Perla with a previous medical history significant for hypertension and hypertensive cardiovascular disease, CAD post PCI, hyperlipidemia, atrial fibrillation, benign prostatic hypertrophy , left cheek melanoma, patient was recently hospitalized at [facility] after he was admitted for an acute cholelithiasis with cholecystitis and possible common bile duct stone and he ended up having laparoscopic cholecystectomy that was done successfully by Dr. Boone, patient was discharged home and he went to [facility] patient was supposed to go a follow-up with Dr. Perla today in the office and he was in atrial fibrillation with rapid ventricular response and the patient was quite wobbly so he ended up the sending the patient to the emergency department at [facility] where he was found to be in atrial fibrillation with RVR and the patient blood pressure was borderline he was given an extra dose of Lopressor IV and he was kept in his Cardizem and Lopressor was admitted to the hospital, he was kept on Eliquis 2.5 mg orally twice every day and he would be seen in consultation by cardiology. 12/15: Patient has been evaluated by Dr. Lopez and cleared for discharge. Heart rate is controlled 72-100. Patient denies any shortness of breath or palpitations. Patient has ambulated in his room to the bathroom and back without symptoms. Patient will be discharged home today in stable condition. Discharge diagnoses: 1. Chronic atrial fibrillation presenting with Atrial fibrillation with rapid ventricular response. 2. CAD post-PCI. 3. Hypertension and hypertensive cardio vascular disease. 4. Status post recent laparoscopic cholecystectomy for cholecystitis with possible common bile duct stone that has resolved. 5. Enlarged prostate. 6. Mild intermittent asthma. Stable 7. Hypothyroidism. 8. Mild anemia. Discharge plan: home Impression and plan of care have been directed as dictated by the signing physician. Jaclyn Trammell nurse practitioner acting as scribe for signing physician. Patient Condition at Discharge: Good Plan - Discharge Summary Discharge Rx Participant: No New Discharge Prescriptions: New Diltiazem Oral [Cardizem*] 60 mg PO TID #90 tab Continue Montelukast [Singulair] 10 mg PO DAILY Levothyroxine Sodium [Synthroid] 125 mcg PO DAILY Glucosamine Sulfate 500 mg PO DAILY Isosorbide Mononitrate ER [Imdur] 60 mg PO DAILY Nitroglycerin Sl Tabs [Nitrostat] 0.4 mg SUBLINGUAL Q5M PRN PRN Reason: Chest Pain Omeprazole [PriLOSEC] 20 mg PO AC-BRKFST Chondroitin Sulfate 150 mg PO DAILY Ferrous Sulfate [Iron (65 MG Elemental)] 325 mg PO TID Finasteride [Proscar] 5 mg PO DAILY Ranitidine HCl 150 mg PO HS Apixaban [Eliquis] 2.5 mg PO BID tablet Metoprolol Succinate (ER) [Toprol XL] 100 mg PO DAILY #30 tab Discontinued Doxazosin [Cardura] 4 mg PO DAILY Diltiazem Oral [Cardizem*] 30 mg PO TID #90 tab Discharge Medication List Levothyroxine Sodium [Synthroid] 125 mcg PO DAILY 08/01/14 [History] Montelukast [Singulair] 10 mg PO DAILY 08/01/14 [History] Glucosamine Sulfate 500 mg PO DAILY 11/10/16 [History] Isosorbide Mononitrate ER [Imdur] 60 mg PO DAILY 11/10/16 [History] Nitroglycerin Sl Tabs [Nitrostat] 0.4 mg SUBLINGUAL Q5M PRN 11/10/16 [History] Omeprazole [PriLOSEC] 20 mg PO AC-BRKFST 11/10/16 [History] Chondroitin Sulfate 150 mg PO DAILY 11/22/17 [History] Ferrous Sulfate [Iron (65 MG Elemental)] 325 mg PO TID 11/22/17 [History] Finasteride [Proscar] 5 mg PO DAILY 11/22/17 [History] Ranitidine HCl 150 mg PO HS 11/22/17 [History] Apixaban [Eliquis] 2.5 mg PO BID tablet 12/02/17 [Rx] Metoprolol Succinate (ER) [Toprol XL] 100 mg PO DAILY #30 tab 12/02/17 [Rx] Diltiazem Oral [Cardizem*] 60 mg PO TID #90 tab 12/15/17 [Rx] Follow up Appointment(s)/Referral(s): Lance Chamorro MD [STAFF PHYSICIAN] - 01/05/18 2:00 pm (With ROLL OUT MANAGER) Herberth Perla MD [Primary Care Provider] - 12/22/17 9:30 am () Patient Instructions/Handouts: Atrial Flutter (DC) Discharge Disposition: HOME SELF-CARE
[2017-12-15] MEDS ORDERED: FERROUS SULFATE 325 MG TAB PO SCH (12:30)
--- NOTE | 2018-01-06 13:18 | CDI ---
Last Revision, August 2017 Documentation Clarification Form Date: 01/06/18 From: Kim Keith Phone: If you have a question regarding this query, please contact Taniya Swartz at [phone] between 8am and 5pm Admit Date: 12/14/2017 2:38:00 PM Patient Name: Gary Fischer Visit Number: [id number] Discharge Date: 12/15/17 ATTENTION: The Clinical Documentation Specialists (CDI) and [facility] Coding Staff appreciate your assistance in clarifying documentation. Please respond to the clarification below the line at the bottom and electronically sign. The CDI & [facility] Coding staff will review the response and follow-up if needed. Please note: Queries are made part of the Legal Health Record. If you have any questions, please contact the author of this message via ITS. Dr. Jovanna Montelongo A diagnosis of anemia lacks specificity to accurately reflect your patients severity of condition and clarification is needed. Mild anemia is documented in the discharge summary and H&P. Documentation to continue iron is also present. History/Risk Factors: Patient has a history of chronic atrial fib, CAD, hypertension and asthma. Hemoglobin: 12.9 Hematocrit: 39.5 Treatment: Feosol In order to capture the severity of condition, please clarify the type of anemia and etiology if known: Acute blood loss anemia Acute on chronic blood loss anemia Chronic blood loss anemia Iron deficiency anemia Drug induced anemia Nutritional anemia Unable to determine Other, please specify Chronic blood loss anemia MTDD
== END 2017-12-15 13:01 | disposition home or self-care (01) | DRG 310 ==
LOC: EC 11:14 → 6SEL 14:38
PROVIDERS: ADMIT Internal Medicine; ATTEND Internal Medicine
DX: I48.2 Chronic atrial fibrillation (principal); I95.9 Hypotension, unspecified; I11.9 Hypertensive heart disease without heart failure; D50.0 Iron deficiency anemia secondary to blood loss (chronic); E78.5 Hyperlipidemia, unspecified; E89.0 Postprocedural hypothyroidism; F32.9 Major depressive disorder, single episode, unspecified; I25.10 Atherosclerotic heart disease of native coronary artery without angina pectoris; J45.20 Mild intermittent asthma, uncomplicated; K21.9 Gastro-esophageal reflux disease without esophagitis; N40.0 Benign prostatic hyperplasia without lower urinary tract symptoms; M19.90 Unspecified osteoarthritis, unspecified site; R01.1 Cardiac murmur, unspecified; Z79.01 Long term (current) use of anticoagulants; Z79.899 Other long term (current) drug therapy; Z79.890 Hormone replacement therapy; Z90.5 Acquired absence of kidney; Z90.49 Acquired absence of other specified parts of digestive tract; Z87.891 Personal history of nicotine dependence; Z85.820 Personal history of malignant melanoma of skin; Z98.42 Cataract extraction status, left eye; Z98.41 Cataract extraction status, right eye; Z96.1 Presence of intraocular lens; Z82.3 Family history of stroke; Z80.0 Family history of malignant neoplasm of digestive organs; Z82.61 Family history of arthritis
CPT/HCPCS: 36415; 71046; 80053; 80061; 82550; 82553; 83735; 84484; 85025; 85610; 85730; 93005; 96360; 96361; 99291

== ENCOUNTER 2017-12-19 11:46 | Emergency (ER) | payer MEDICARE ==
[2017-12-19 12:14] VITALS: BP 149/72; PULSE 67; RESP 18; TEMP 97.3
[2017-12-19] MEDS ORDERED: DIPH,PERTUS(ACELL)TETVAC-LF 0.5 ML VIAL IM ONE (12:22)
--- NOTE | 2017-12-19 12:25 | ED ---
General Adult HPI - General Chief complaint: Fall Stated complaint: Laceration on Hand Time Seen by Provider: 12/19/17 12:15 Source: patient, RN notes reviewed Mode of arrival: wheelchair Limitations: no limitations - History of Present Illness Initial comments: Patient is a 87-year-old male who presents emergency room today with chief complaint of fall occurred approximately 3 AM. He states he was getting out of bed to go to the bathroom. He states is unsure how he tripped when he fell down. He states he did not get lightheaded or dizzy. He states he does have abrasion to the left cheek and also his left upper lip. Patient admits to a cut to the base of the right thumb. He states he is on DUE to A. fib. He states he has not taken the past 2 days as he ran out. He states he did try to call the doctor but is not her back from about another prescription. Patient denies any headache. Denies any vision changes. He denies any nausea or vomiting. Patient states he came only to the hospital because he has some bleeding to the base of the right thumb that he could not stop at home. Patient denies any other complaints or symptoms at this time. States he does not want any other testing performed. - Related Data Home Medications Medication Instructions Recorded Confirmed Levothyroxine Sodium [Synthroid] 125 mcg PO DAILY 08/01/14 12/14/17 Montelukast [Singulair] 10 mg PO DAILY 08/01/14 12/14/17 Glucosamine Sulfate 500 mg PO DAILY 11/10/16 12/14/17 Isosorbide Mononitrate ER [Imdur] 60 mg PO DAILY 11/10/16 12/14/17 Nitroglycerin Sl Tabs [Nitrostat] 0.4 mg SUBLINGUAL Q5M PRN 11/10/16 11/22/17 Omeprazole [PriLOSEC] 20 mg PO AC-BRKFST 11/10/16 12/14/17 Chondroitin Sulfate 150 mg PO DAILY 11/22/17 12/14/17 Ferrous Sulfate [Iron (65 MG 325 mg PO TID 11/22/17 12/14/17 Elemental)] Finasteride [Proscar] 5 mg PO DAILY 11/22/17 12/14/17 Ranitidine HCl 150 mg PO HS 11/22/17 11/22/17 Previous Rx's Medication Instructions Recorded Apixaban [Eliquis] 2.5 mg PO BID tablet 12/02/17 Metoprolol Succinate (ER) [Toprol 100 mg PO DAILY #30 tab 12/02/17 XL] Diltiazem Oral [Cardizem*] 60 mg PO TID #90 tab 12/15/17 Allergies Allergy/AdvReac Type Severity Reaction Status Date / Time No Known Allergies Allergy Verified 12/19/17 12:14 Review of Systems ROS Statement: Those systems with pertinent positive or pertinent negative responses have been documented in the HPI. ROS Other: All systems not noted in ROS Statement are negative. Past Medical History Past Medical History: Atrial Fibrillation, Asthma, Coronary Artery Disease (CAD) , GERD/Reflux, Hyperlipidemia, Hypertension, Osteoarthritis (OA), Prostate Disorder, Thyroid Disorder Additional Past Medical History / Comment(s): AFib with RVR, BPH, hypothyroid, L cheek melanoma/removed. History of Any Multi-Drug Resistant Organisms: None Reported Past Surgical History: Adenoidectomy, Back Surgery, Cholecystectomy, Heart Catheterization With Stent, Hernia Repair, Tonsillectomy Additional Past Surgical History / Comment(s): Bilateral cataract surgery, tonsillectomy and adenoidectomy, laparoscopic cholecystectomy, right hernia repair with mesh, left nephrectomy with a history of nephritis, right arthroscopic knee surgery, strabismus, left heart catheterization with PCI, back surgery, thyroid surgery. Past Anesthesia/Blood Transfusion Reactions: No Reported Reaction Past Psychological History: Depression Smoking Status: Former smoker Past Alcohol Use History: Rare Past Drug Use History: None Reported - Past Family History Father Family Medical History: CVA/TIA (father at age of 88 from old age he also had CVA .) Additional Family Medical History / Comment(s): Father in his late 80s from a CVA Mother Family Medical History: Cancer (mother at age 75 from gallbladder cancer.) Additional Family Medical History / Comment(s): Mother of gallbladder cancer in her mid 70's. Brother(s) Family Medical History: Osteoarthritis (OA) (patient has one brother 10 years younger with history of osteoarthritis.) Son(s) Family Medical History: No Reported History (patient has 2 sons no major medical problems.) Daughter(s) Family Medical History: No Reported History (patient has one daughter no major medical problems.) General Exam - General Exam Comments Initial Comments: General: The patient is awake and alert, in no distress, and does not appear acutely ill. Neck: The neck is supple, there is no tenderness or JVD. Cardiovascular: There is a regular rate and rhythm. No murmur, rub or gallop is appreciated. Respiratory: Lungs are clear to auscultation, respirations are non-labored, breath sounds are equal. No wheezes, stridor, rales, or rhonchi. Musculoskeletal: Patient has full range of motion. Sensation intact. Pulses equal bilaterally 2+ per strength 5/5. Neurological: A&O x 3. CN II-XII intact, There are no obvious motor or sensory deficits. Coordination appears grossly intact. Speech is normal. Skin: Patient does have a 4 cm laceration at the back of the right hand of the first digit. L-shaped laceration. Wound edges are clean. There is no active bleeding. Psychiatric: Normal mood and affect. Limitations: no limitations Course Vital Signs 12/19/17 12:09 Temperature 97.3 F L Pulse Rate 67 Respiratory 18 Rate Blood Pressure 149/72 O2 Sat by Pulse 96 Oximetry - Reevaluation(s) Reevaluation #1: 12/19/17 12:24 It was recommended the patient do that he's on both inner and had a head trauma that he should have a CT performed. He has declined it. States he does not want to have it. Patient is agreeable to a tetanus shot as he states is unsure of his last tetanus. Patient does not want any other blood work performed. States only reason he came was because the cut to his right thumb. Medical Decision Making - Medical Decision Making Case discussed in detail with attending physician Dr. Mcdonough. 87-year-old male presented to the emergency room for laceration to the right hand. He states had a fall 3 AM. He states is supposed be on Eliquis due to A. fib. He states he ran out 2 days ago. Patient does have an abrasion to the left cheek and his left upper lip. He states he does not want a CAT scan. Has declined any other testing. Is agreeable to a tetanus update today. Options were discussed with patient about sutures to fix the laceration site. He has declined days. States he does not like stitches. Patient prefers butterfly bandage. Steri- Strips were placed by nursing staff. At this time we'll allow patient to be discharged to follow-up the family physician for further evaluation to see if they want to continue on the Eliquis. Disposition Clinical Impression: Fall, Hand laceration, Facial abrasion Disposition: HOME SELF-CARE Condition: Stable Instructions: Laceration (ED) Additional Instructions: Please allow the Steri-Strips to fall off on their own over the next 3-5 days. Please watch for any signs of infection which may include increased pain, swelling, redness. Please also family physician tomorrow to discuss if they would like you to continue use of blood thinner. Please return to emergency room if any symptoms increase worsen or for any other concerns. Referrals: Herberth Perla MD [Primary Care Provider] - 1-2 days Time of Disposition: 12:40
== END 2017-12-19 13:07 | disposition home or self-care (01) ==
LOC: EC 11:46
DX: S61.411A Laceration without foreign body of right hand, initial encounter (principal); S00.81XA Abrasion of other part of head, initial encounter; S00.511A Abrasion of lip, initial encounter; J45.909 Unspecified asthma, uncomplicated; I25.10 Atherosclerotic heart disease of native coronary artery without angina pectoris; K21.9 Gastro-esophageal reflux disease without esophagitis; I10 Essential (primary) hypertension; E03.9 Hypothyroidism, unspecified; Z87.891 Personal history of nicotine dependence; Z23 Encounter for immunization; Z98.890 Other specified postprocedural states; Z79.899 Other long term (current) drug therapy; W06.XXXA Fall from bed, initial encounter; Y92.009 Unspecified place in unspecified non-institutional (private) residence as the place of occurrence of the external cause
CPT/HCPCS: 90471; 90715; 99282